=== PATIENT | female | born 1960 | race Caucasian/White ===

== ENCOUNTER 2020-06-07 20:07 | Inpatient (IN) | payer BC, OTHER ==
[~2020-06-07] VITALS: Ht 162.5 cm; Wt 122.7 kg
--- NOTE | 2020-06-07 20:15 | NUR ---
ABG'S COLLECTED BY RT STAFF
--- NOTE | 2020-06-07 20:34 | ED Dyspnea ---
General Stated Complaint: COVID +;SOA Source of Information: Patient, EMS Exam Limitations: No Limitations History of Present Illness Date Seen by Provider: Jun 07, 2020 Time Seen by Provider: 20:10 Initial Comments Patient is a 60-year-old female who presents to the emergency department today with a chief complaint of generalized weakness and shortness of breath. Per report of EMS and the patient she was diagnosed with coronavirus last week on or Thursday. She started having symptoms a week and a half ago on the Thursday. Patient states for the last 3 or 4 days she has been so weak she cannot get out of bed. EMS reports on their arrival her saturations were 60% on room air. The patient is saying that she is too weak to get out of bed. She denies chest pain she denies sore throat. She denies any GI symptoms. She denies abdominal pain. She has been trying to drink at home but she is not been able to eat because she has been too weak. She lives at home with her son. All other review of systems reviewed and negative except as stated. Timing/Duration: 1 Week, Constant, Increasing Severity: Severe Modifying Factors: Improves With Activity Associated Symptoms: Fever, Weakness Allergies and Home Medications Allergies Coded Allergies: No Known Drug Allergies (Unverified , 06/07/20) Patient Home Medication List Home Medication List Reviewed: Yes Review of Systems Review of Systems Constitutional: no symptoms reported EENTM: No nose congestion, No nose pain Respiratory: cough, dyspnea on exertion, short of breath, wheezing Cardiovascular: no symptoms reported Genitourinary: no symptoms reported Musculoskeletal: no symptoms reported Skin: no symptoms reported All Other Systems Reviewed Negative Unless Noted: Yes Physical Exam Vital Signs Vital Signs - First Documented 06/07/20 06/07/20 06/07/20 20:26 20:50 20:52 Temp 38.6 Pulse 99 Resp 43 B/P (MAP) 131/56 (81) Pulse Ox 96 O2 Delivery Vapotherm O2 Flow Rate 6.00 FiO2 90 Capillary Refill : Height, Weight, BMI Height: '" Weight: lbs. oz. kg; BMI Method: General Appearance: Severe Distress HEENT: PERRL/EOMI, Other (Very dry oral mucosa noted) Neck: Full Range of Motion Respiratory: Other (Tachypnea at 40 breaths/min, coarse rhonchi noted in the left upper posterior lung olsen otherwise clear) Cardiovascular: Tachycardia Gastrointestinal: Normal Bowel Sounds, Non Tender Extremity: Normal Inspection, Normal Range of Motion, Non Tender, No Calf Tenderness Neurologic/Psychiatric: Oriented x3, No Motor/Sensory Deficits, Normal Mood/Affect Skin: Normal Color, Warm/Dry Focused Exam Sepsis Stage: Sepsis Possible Source: Pulmonary Lactate Level 06/07/20 20:15: Lactic Acid Level 1.71 Time of Focused Exam: 20:35 Respiratory: Chest Non Tender, Respiratory Distress, Rhonci Cardiovascular: Normal Peripheral Pulses, Tachycardia Capillary Refill: Less Than 3 Seconds Peripheral Pulses: 2+ Radial Pulses (R), 2+ Radial Pulses (L) Skin: warm/dry, pallor Lactic Acid Level Laboratory Tests Test 06/07/20 20:15 Lactic Acid Level 1.71 MMOL/L (0.50-2.00) Progress/Results/Core Measures Results/Orders Lab Results Laboratory Tests Test 06/07/20 20:15 06/07/20 20:25 06/07/20 20:40 Range/Units White Blood Count 10.3 4.3-11.0 10^3/uL Red Blood Count 5.73 H 3.80-5.11 10^6/uL Hemoglobin 15.6 11.5-16.0 g/dL Hematocrit 46 35-52 % Mean Corpuscular Volume 81 80-99 fL Mean Corpuscular Hemoglobin 27 25-34 pg Mean Corpuscular Hemoglobin Concent 34 32-36 g/dL Red Cell Distribution Width 12.7 10.0-14.5 % Platelet Count 387 130-400 10^3/uL Mean Platelet Volume 10.1 9.0-12.2 fL Immature Granulocyte % (Auto) 7 % Neutrophils (%) (Auto) 81 H 42-75 % Lymphocytes (%) (Auto) 8 L 12-44 % Monocytes (%) (Auto) 4 0-12 % Eosinophils (%) (Auto) 0 0-10 % Basophils (%) (Auto) 1 0-10 % Neutrophils # (Auto) 8.3 H 1.8-7.8 10^3/uL Lymphocytes # (Auto) 0.9 L 1.0-4.0 10^3/uL Monocytes # (Auto) 0.4 0.0-1.0 10^3/uL Eosinophils # (Auto) 0.0 0.0-0.3 10^3/uL Basophils # (Auto) 0.1 0.0-0.1 10^3/uL Immature Granulocyte # (Auto) 0.7 H 0.0-0.1 10^3/uL Prothrombin Time 14.8 H 12.2-14.7 SEC INR Comment 1.1 0.8-1.4 Activated Partial Thromboplast Time 26 24-35 SEC D-Dimer 4.25 H 0.00-0.49 UG/ML Sodium Level 131 L 135-145 MMOL/L Potassium Level 3.7 3.6-5.0 MMOL/L Chloride Level 94 L 98-107 MMOL/L Carbon Dioxide Level 21 21-32 MMOL/L Anion Gap 16 H 5-14 MMOL/L Blood Urea Nitrogen 15 7-18 MG/DL Creatinine 0.78 0.60-1.30 MG/DL Estimat Glomerular Filtration Rate > 60 BUN/Creatinine Ratio 19 Glucose Level 123 H 70-105 MG/DL Lactic Acid Level 1.71 0.50-2.00 MMOL/L Calcium Level 9.0 8.5-10.1 MG/DL Corrected Calcium 9.4 8.5-10.1 MG/DL Total Bilirubin 1.2 H 0.1-1.0 MG/DL Aspartate Amino Transf (AST/SGOT) 58 H 5-34 U/L Alanine Aminotransferase (ALT/SGPT) 61 H 0-55 U/L Alkaline Phosphatase 239 H 40-136 U/L C-Reactive Protein High Sensitivity 15.49 H 0.00-0.50 MG/DL Total Protein 7.1 6.4-8.2 GM/DL Albumin 3.5 3.2-4.5 GM/DL Procalcitonin 0.14 H <0.10 NG/ML Urine Color MARIANN H Urine Clarity SL CLOUDY Urine pH 6.0 5-9 Urine Specific Crewe 1.015 L 1.016-1.022 Urine Protein 2+ H NEGATIVE Urine Glucose (UA) NEGATIVE NEGATIVE Urine Ketones 2+ H NEGATIVE Urine Nitrite NEGATIVE NEGATIVE Urine Bilirubin 2+ H NEGATIVE Urine Urobilinogen >=8.0 < = 1.0 MG/DL Urine Leukocyte Esterase NEGATIVE NEGATIVE Urine RBC (Auto) NEGATIVE NEGATIVE Urine RBC 0-2 /HPF Urine WBC 2-5 /HPF Urine Squamous Epithelial Cells 5-10 /HPF Urine Crystals PRESENT H /LPF Urine Amorphous Sediment RARE NADEEN URATES H /LPF Urine Bacteria FEW H /HPF Urine Casts PRESENT /LPF Urine Hyaline Casts 5-10 H /LPF Urine Mucus MODERATE H /LPF Urine Culture Indicated CULTURE PENDING Blood Gas Puncture Site LEFT RADIAL Blood Gas Patient Temperature 38.6 Arterial Blood pH 7.46 H 7.37-7.43 Arterial Blood Partial Pressure CO2 30 L 35-45 MMHG Arterial Blood Partial Pressure O2 98 H 79-93 MMHG Arterial Blood HCO3 20 L 23-27 MMOL/L Arterial Blood Total CO2 21.3 21.0-31.0 MMOL/L Arterial Blood Oxygen Saturation 97 94-100 % Arterial Blood Base Excess -2.5 -2.5-2.5 MMOL/L Yinka Test UNKNOWN Blood Gas Ventilator Setting NO Blood Gas Inspired Oxygen 40 Micro Results Microbiology 06/07/20 Blood Culture - Preliminary, Resulted Probable Coag Negative Staph 06/07/20 Urine Culture - Final, Complete NO GROWTH 06/07/20 Blood Culture - Preliminary, Resulted Probable Coag Negative Staph My Orders Orders - JIMMY BARBER MD Cbc With Automated Diff (06/07/20 20:25) Comprehensive Metabolic Panel (06/07/20 20:25) Blood Culture (06/07/20 20:25) Sputum Culture (06/07/20 20:) Urinalysis (06/07/20:) Urine Culture (06/07/20:) Protime With Inr (06/07/20 20:) Partial Thromboplastin Time (06/07/20 20:25) Chest 1 View, Ap/Pa Only (06/07/20 20:25) Ed Iv/Invasive Line Start (06/07/20 20:25) Ed Iv/Invasive Line Start (06/07/20 20:25) Vital Signs Adult Sepsis Patie Q15M (06/07/20 20:25) O2 (06/07/20 20:25) Remove Rings In Anticipation O (06/07/20 20:) Lactic Acid Analyzer (06/07/20 20:) Hs C Reactive Protein (06/07/20 20:25) Fibrin Degradation Products (06/07/20 20:) Procalcitonin (Pct) (06/07/20 20:25) Catheter(Urinary) Insert & Ass 03,15 (10/22/20 20:26) Acetaminophen Tablet (Tylenol Tablet) (06/07/20 20:45) Ns Iv 1000 Ml (Sodium Chloride 0.9%) (06/07/20 20:44) Arterial Blood Gas (06/07/20 20:45) Ct Angio Chest W (06/07/20 21:17) Dexamethasone Injection (Decadron Inje (06/07/20 22:33) Medications Given in ED Vital Signs/I&O 06/07/20 06/07/20 06/07/20 20:26 20:50 20:52 Temp 38.6 38.6 Pulse 99 Resp 43 B/P (MAP) 131/56 (81) Pulse Ox 96 85 O2 Delivery Vapotherm Nasal Cannula O2 Flow Rate 6.00 FiO2 90 Progress Progress Note : Time: 21:19 Progress Note 60-year-old female presents to the emergency room with a chief complaint of shortness of breath cough and hypoxemia. Evaluation today includes physical exam with chest x-ray and septic work-up. Patient has no significant leukocytosis however she does have a left shift her CRP and D-dimer are well above normal range. Her CRP is 15 D-dimer is 4. Patient's chest x-ray is still pending. Patient will undergo CTA pulmonary to rule out PE concurrent with her coronavirus infection. She has been treated with 2 L of IV normal saline as the patient is significantly dehydrated. She is also been given Tylenol for her temp at 101.6. Patient is on Vapotherm currently. She is maxed at 40. ABG is reassuring. She will be admitted to the ICU for further management and care. 2300 DIscussed with E-ICU Critical Care Note Critical Care Start Time: 20:10 Stop Time: 22:31 Total Time (minutes) 1 hour of critical care time, evaluation and management of patients dehydration and hypoxemia; review and interpretation of labs and chest xray; review of medical records; discussion with hospitalist. Departure Communication (Admissions) Time/Spoke to Admitting Phy: 22:[address] Bowman who accepts patient for admission to the ICU Impression Primary Impression: Pneumonia due to COVID-19 virus Disposition: ADMITTED INPATIENT Condition: Critical Admissions Decision to Admit Reason: Admit from ER (General) Decision to Admit/Date: Jun 07, 2020 Time/Decision to Admit Time: 20:30 JIMMY BARBER MD Jun 07, 2020 20:33
[2020-06-07 20:37] LABS: BASOPHILS # (AUTO) 0.1 10^3/uL (0.0-0.1); BASOPHILS % (AUTO) 1 % (0-10); EOSINOPHILS % (AUTO) 0 % (0-10); HEMATOCRIT 46 % (35-52); HEMOGLOBIN 15.6 g/dL (11.5-16.0); LYMPHOCYTES # (AUTO) 0.9 10^3/uL (1.0-4.0); LYMPHOCYTES % (AUTO) 8 % (12-44); MEAN CORPUSCULAR HEMOGLOBIN 27 pg (25-34); MEAN CORPUSCULAR HGB CONC 34 g/dL (32-36); MEAN CORPUSCULAR VOLUME 81 fL (80-99); MEAN PLATELET VOLUME 10.1 fL (9.0-12.2); MONOCYTES # (AUTO) 0.4 10^3/uL (0.0-1.0); MONOCYTES % (AUTO) 4 % (0-12); NEUTROPHILS # (AUTO) 8.3 10^3/uL (1.8-7.8); NEUTROPHILS % (AUTO) 81 % (42-75); PLATELET COUNT 387 10^3/uL (130-400); WHITE BLOOD COUNT 10.3 10^3/uL (4.3-11.0)
[2020-06-07 20:43] LABS: CLARITY,URINE SL CLOUDY; COLOR,URINE AMBER; GLUCOSE, URINE (UA) NEGATIVE (NEGATIVE); KETONES,URINE 2+ (NEGATIVE); LEUKOCYTE ESTERASE ,URINE NEGATIVE (NEGATIVE); NITRITE,URINE NEGATIVE (NEGATIVE); PROTEIN,URINE 2+ (NEGATIVE)
[2020-06-07] MEDS ORDERED: ACETAMINOPHEN 500 MG TAB (TYLENOL) PO ONE (20:45)
[2020-06-07 20:50] LABS: ALANINE AMINOTRANSFERASE 61 U/L (0-55); ALBUMIN 3.5 GM/DL (3.2-4.5); ALKALINE PHOSPHATASE 239 U/L (40-136); BILIRUBIN,TOTAL 1.2 MG/DL (0.1-1.0); BUN/CREATININE RATIO 19; CARBON DIOXIDE 21 MMOL/L (21-32); CHLORIDE 94 MMOL/L (98-107); CREATININE SERUM 0.78 MG/DL (0.60-1.30); FIBRIN DEGRADATION PRODUCTS 4.25 UG/ML (0.00-0.49); GFR ESTIMATED > 60; GLUCOSE 123 MG/DL (70-105); INR 1.1 (0.8-1.4); POTASSIUM 3.7 MMOL/L (3.6-5.0); PROTHROMBIN TIME PATIENT 14.8 SEC (12.2-14.7); SODIUM 131 MMOL/L (135-145); TOTAL PROTEIN 7.1 GM/DL (6.4-8.2)
[2020-06-07 20:51] LABS: ABG BASE EXCESS -2.5 MMOL/L (-2.5-2.5); ABG OXYGEN SATURATION 97 % (94-100); ABG PCO2 30 MMHG (35-45); ABG PH 7.46 (7.37-7.43); ABG PO2 98 MMHG (79-93); ABG TCO2 21.3 MMOL/L (21.0-31.0)
[2020-06-07] MEDS: NS IV 1000 ML 2,000 ML ONE ×2 (20:51→20:52)
[2020-06-07 20:55] LABS: BACTERIA,URINE FEW /HPF; BILIRUBIN,URINE 2+ (NEGATIVE); RBC,URINE 0-2 /HPF
[2020-06-07 20:56] LABS: AMORPHOUS SEDIMENT,UR RARE AMOR URATES /LPF
[2020-06-07 20:57] LABS: INSPIRED O2 40; PATIENT TEMP 38.6; VENTILATOR NO
--- NOTE | 2020-06-07 22:24 | Diagnostic Imaging Report ---
INDICATION: Pneumonia. EXAMINATION: Portable chest at 9:49 p.m. FINDINGS: There are diffuse groundglass infiltrates in both lungs, slightly more confluent on the right than on the left. There is no effusion. IMPRESSION: Bilateral pulmonary infiltrates. Dictated by: Dictated on workstation # [id number]
[2020-06-07] MEDS ORDERED: NS 100 ML (IVPB) BAG IV ONE (23:30)
[2020-06-07] MEDS ORDERED: IOHEXOL 350 MG/ML 100 ML (OMNIPAQUE 350) VIAL IV ONE (23:30)
[2020-06-07] MEDS ORDERED: CATHETER FLUSH 10 ML SYR IV PRN (23:30)
[2020-06-07] MEDS ORDERED: HOLD METFORMIN - RECEIVED CONTRAST 20 ML VIAL IV SCH (23:30)
[2020-06-07] MEDS: NS IV 1000 ML 1,000 ML IV SCH (23:42)
[2020-06-07 23:56] VITALS: BP 123/58
[2020-06-08] VITALS (27 sets, daily range): BP systolic 99–147; BP diastolic 45–89
[2020-06-08] MEDS ORDERED: RT-ALBUTEROL INHALER HFA (VENTOLIN HFA) 18 GM IH PRN (00:15)
[2020-06-08] MEDS: RT-ALBUTEROL INHALER HFA (VENTOLIN HFA) 18 GM IH SCH ×5 (02:38→19:00)
[2020-06-08 03:21] LABS: ABG BASE EXCESS -2.5 MMOL/L (-2.5-2.5); ABG OXYGEN SATURATION 95 % (94-100); ABG PCO2 36 MMHG (35-45); ABG PH 7.39 (7.37-7.43); ABG PO2 76 MMHG (79-93); ABG TCO2 22.9 MMOL/L (21.0-31.0)
[2020-06-08 03:22] LABS: ALLENS TEST POSITIVE; INSPIRED O2 10l/85% VAPO; PATIENT TEMP 36.2; VENTILATOR NO
[2020-06-08 04:13] LABS: BASOPHILS % (AUTO) 0 % (0-10); EOSINOPHILS % (AUTO) 0 % (0-10); HEMATOCRIT 39 % (35-52); HEMOGLOBIN 13.1 g/dL (11.5-16.0); LYMPHOCYTES # (AUTO) 0.4 10^3/uL (1.0-4.0); LYMPHOCYTES % (AUTO) 6 % (12-44); MEAN CORPUSCULAR HEMOGLOBIN 27 pg (25-34); MEAN CORPUSCULAR HGB CONC 34 g/dL (32-36); MEAN CORPUSCULAR VOLUME 81 fL (80-99); MEAN PLATELET VOLUME 10.2 fL (9.0-12.2); MONOCYTES # (AUTO) 0.2 10^3/uL (0.0-1.0); MONOCYTES % (AUTO) 3 % (0-12); NEUTROPHILS # (AUTO) 5.4 10^3/uL (1.8-7.8); NEUTROPHILS % (AUTO) 84 % (42-75); PLATELET COUNT 244 10^3/uL (130-400); WHITE BLOOD COUNT 6.4 10^3/uL (4.3-11.0)
[2020-06-08 04:25] LABS: CHLORIDE 104 MMOL/L (98-107); POTASSIUM 3.9 MMOL/L (3.6-5.0); SODIUM 135 MMOL/L (135-145)
[2020-06-08 04:26] LABS: CALCIUM 7.8 MG/DL (8.5-10.1)
[2020-06-08 04:27] LABS: GLUCOSE 137 MG/DL (70-105)
[2020-06-08 04:28] LABS: CARBON DIOXIDE 19 MMOL/L (21-32)
[2020-06-08 04:30] LABS: CREATININE SERUM 0.63 MG/DL (0.60-1.30); GFR ESTIMATED > 60; PHOSPHORUS 3.5 MG/DL (2.3-4.7)
[2020-06-08 04:31] LABS: BUN/CREATININE RATIO 22
[2020-06-08 04:33] LABS: MAGNESIUM 2.2 MG/DL (1.6-2.4)
[2020-06-08] MEDS: POTASSIUM CL 10MEQ/50ML IVPB 50 ML IV SCH (04:40)
[2020-06-08] MEDS: MAGNESIUM 1 GM/100 ML IVPB 100 ML IV SCH (04:40)
[2020-06-08] MEDS: KCL 20 MEQ TAB (K-DUR) PO SCH (04:40)
[2020-06-08] MEDS: NS IV 1000 ML 1,000 ML IV SCH ×3 (05:51→18:48)
--- NOTE | 2020-06-08 06:16 | Diagnostic Imaging Report ---
PROCEDURE: CT angiography of the chest with contrast. TECHNIQUE: Multiple contiguous axial images were obtained through the chest after uneventful bolus administration of intravenous contrast. 3D reconstructed CTA MIP acquisitions were also performed. Auto Exposure Controls were utilized during the CT exam to meet ALARA standards for radiation dose reduction. INDICATION: Shortness of breath, cough and congestion. Patient is Covid positive. No prior examinations are available for comparison. FINDINGS: There are diffuse bilateral groundglass infiltrates. There are more consolidated alveolar infiltrates in both lung bases. There is no significant pleural effusion. There is no pneumothorax. Thoracic aorta is normal in caliber and without evidence of dissection. There are coronary artery calcifications. There is hiatal hernia. There is no pathologically enlarged adenopathy in chest. Evaluation for pulmonary embolism is suboptimal due to poor bolus timing. No obvious large central emboli are appreciated. The visualized intra-abdominal structures are unremarkable. There are degenerative changes in the spine. IMPRESSION: Suboptimal opacification of pulmonary arteries for complete exclusion of pulmonary emboli. No definite large central or proximal emboli are appreciated. Extensive bilateral groundglass infiltrates and bibasilar alveolar consolidations compatible with pneumonia. If pattern would be compatible with Covid, recommend clinical correlation. Coronary artery calcification. Dictated by: Dictated on workstation # [id number]
[2020-06-08] MEDS ORDERED: REMDESIVIR INJ 200 MG in NS (IVPB) 210 ML IV ONE (07:45)
--- NOTE | 2020-06-08 07:47 | Pulmonary Consultation ---
History of Present Illness History of Present Illness Date Seen by Provider: Jun 08, 2020 Time Seen by Provider: 07:44 Date of Admission Allergies and Home Medications Allergies Coded Allergies: No Known Drug Allergies (Unverified , 06/07/20) Past Owzczxv-Lffpbh-Ckrlyp Hx Patient Social History Alcohol Use: Denies Use Recreational Drug Use: No Recent Foreign Travel: No Contact w/Someone Who Travel: No Recent Infectious Disease Expo: Yes (COVID POSITIVE) Recent Hopitalizations: No Seasonal Allergies Seasonal Allergies: No Past Medical History Surgeries: No Respiratory: No Cardiac: No Neurological: No 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 oz. kg; 30.00 BMI Method: Exam Exam Vital Signs Date Time Temp Pulse Resp B/P (MAP) Pulse Ox O2 Delivery O2 Flow Rate FiO2 06/08/20 06:57 93 Vapotherm 40.00 85 06/08/20 06:00 64 16 124/78 (93) 93 Vapotherm 40.00 85.00 06/08/20 05:00 75 38 120/85 (97) 96 Vapotherm 40.00 85.00 06/08/20 04:00 67 24 128/64 (85) 93 Vapotherm 40.00 85.00 06/08/20 04:00 36.2 06/08/20 03:00 68 32 115/64 (81) 93 Vapotherm 40.00 85.00 06/08/20 02:36 94 Vapotherm 40.00 85 06/08/20 02:00 72 28 123/66 (85) 94 Vapotherm 40.00 85.00 06/08/20 01:30 71 36 107/59 (75) 94 Vapotherm 40.00 85.00 06/08/20 01:00 72 35 106/67 (80) 91 Vapotherm 40.00 85.00 06/08/20 00:50 92 Vapotherm 40.00 85 06/08/20 00:45 72 33 110/56 (74) 91 Vapotherm 40.00 85.00 06/08/20 00:30 71 26 118/57 (77) 91 Vapotherm 40.00 85.00 06/08/20 00:15 76 29 125/71 (89) 95 Vapotherm 40.00 85.00 06/08/20 00:04 38.6 99 93 85 06/08/20 00:00 80 06/07/20 23:56 36.2 79 30 123/58 (79) 92 Vapotherm 40.00 85.00 06/07/20 23:44 93 Vapotherm 40.00 85 06/07/20 23:25 37.4 82 36 102/74 91 OxyMask 15.00 06/07/20 20:52 38.6 99 43 131/56 (81) 85 Nasal Cannula 6.00 06/07/20 20:50 38.6 06/07/20 20:26 96 Vapotherm 90 I & O 06/08/20 07:00 Intake Total 2000 ml Output Total 550 ml Balance 1450 ml Height & Weight Height: '" Weight: lbs. oz. kg; 30.00 BMI Method: General Appearance: Severe Distress HEENT: PERRL/EOMI, Other (Very dry oral mucosa noted) Neck: Full Range of Motion Respiratory: Chest Non Tender, Respiratory Distress, Rhonci Cardiovascular: Normal Peripheral Pulses, Tachycardia Capillary Refill: Less Than 3 Seconds Peripheral Pulses: 2+ Radial Pulses (R), 2+ Radial Pulses (L) Extremity: Normal Inspection, Normal Range of Motion, Non Tender, No Calf Tenderness Neurologic/Psychiatric: Oriented x3, No Motor/Sensory Deficits, Normal Mood/Affect Skin: Normal Color, Warm/Dry Results Lab Laboratory Tests 06/07/20 20:15 06/08/20 03:38 Assessment/Plan Assessment/Plan COVID 19- PNA -Start Remdesivir 06/08 -Monitor LFTs with daily CMPs -CVP -Currently requiring Vapotherm at 85% -Continue Decadron 6mg IV -Start theraputic dose lovenox secondary to elevated DDImer -CTA of chest - nondiagnostic for PE secondary to poor timing -Check PCT, and BNP Elevated LFTs with elevated Bili -Check Abd US HOWARD YOU DO Jun 08, 2020 07:47
[2020-06-08] MEDS ORDERED: PANTOPRAZOLE 40 MG (PROTONIX) VIAL ONE (08:04)
[2020-06-08] MEDS ORDERED: ENOXAPARIN 100 MG/1 ML (LOVENOX) SYR ONE (08:04)
[2020-06-08] MEDS: ENOXAPARIN 100 MG/1 ML (LOVENOX) SYR SC SCH ×2 (08:09→20:16)
[2020-06-08] MEDS: PANTOPRAZOLE 40 MG (PROTONIX) VIAL IV SCH (08:09)
--- NOTE | 2020-06-08 08:48 | Diagnostic Imaging Report ---
PROCEDURE: US Abdomen, limited. TECHNIQUE: Multiple realtime grayscale images were obtained over the abdomen in various projections. INDICATION: Elevated liver function tests and bilirubin levels. COMPARISON: CT chest from prior day FINDINGS: The liver is normal in size measuring 18 cm in craniocaudal dimension and has normal echogenicity. There is no focal hepatic mass. The main portal vein is patent with antegrade flow. Gallbladder is contracted without gallstones present. The common bile duct is obscured by bowel gas and cannot be evaluated. The majority of the pancreas is obscured by overlying bowel gas, and therefore cannot be evaluated. The right kidney is normal in size. No hydronephrosis, shadowing calculi, or suspicious mass lesion. IMPRESSION: 1. Partially contracted gallbladder could be due to nonfasting. No cholelithiasis. 2. Normal sonographic appearance of the liver. Dictated by: Dictated on workstation # [id number]
[2020-06-08] MEDS ORDERED: REMDESIVIR INJ 200 MG in NS (IVPB) 210 ML IV NR (12:15)
--- NOTE | 2020-06-08 14:30 | NUR ---
REPORT GIVEN TO DEVEN WHITE, DUE TO STAFFING.
--- NOTE | 2020-06-08 14:32 | NUR ---
RECEIVED REPORT FROM CINDY ROE. THIS RN TO ASSUME CARE OF PT AT THIS TIME.
[2020-06-09] VITALS (27 sets, daily range): BP systolic 94–167; BP diastolic 57–106
[2020-06-09] MEDS: RT-ALBUTEROL INHALER HFA (VENTOLIN HFA) 18 GM IH SCH ×5 (02:31→18:27)
[2020-06-09] MEDS: NS IV 1000 ML 1,000 ML IV SCH ×2 (02:33→17:32)
[2020-06-09 03:09] LABS: BASOPHILS % (AUTO) 0 % (0-10); EOSINOPHILS % (AUTO) 1 % (0-10); HEMATOCRIT 37 % (35-52); HEMOGLOBIN 12.1 g/dL (11.5-16.0); LYMPHOCYTES # (AUTO) 0.6 10^3/uL (1.0-4.0); LYMPHOCYTES % (AUTO) 9 % (12-44); MEAN CORPUSCULAR HEMOGLOBIN 27 pg (25-34); MEAN CORPUSCULAR HGB CONC 33 g/dL (32-36); MEAN CORPUSCULAR VOLUME 82 fL (80-99); MEAN PLATELET VOLUME 10.1 fL (9.0-12.2); MONOCYTES # (AUTO) 0.3 10^3/uL (0.0-1.0); MONOCYTES % (AUTO) 4 % (0-12); NEUTROPHILS # (AUTO) 5.5 10^3/uL (1.8-7.8); NEUTROPHILS % (AUTO) 79 % (42-75); PLATELET COUNT 267 10^3/uL (130-400); WHITE BLOOD COUNT 6.9 10^3/uL (4.3-11.0)
[2020-06-09 03:28] LABS: CHLORIDE 112 MMOL/L (98-107); POTASSIUM 3.4 MMOL/L (3.6-5.0); SODIUM 140 MMOL/L (135-145)
[2020-06-09 03:29] LABS: CALCIUM 7.9 MG/DL (8.5-10.1)
[2020-06-09 03:30] LABS: GLUCOSE 101 MG/DL (70-105)
[2020-06-09 03:31] LABS: CARBON DIOXIDE 18 MMOL/L (21-32)
[2020-06-09 03:33] LABS: CREATININE SERUM 0.62 MG/DL (0.60-1.30); PHOSPHORUS 2.1 MG/DL (2.3-4.7)
[2020-06-09 03:34] LABS: BUN/CREATININE RATIO 23; GFR ESTIMATED > 60
[2020-06-09 03:36] LABS: MAGNESIUM 2.2 MG/DL (1.6-2.4)
[2020-06-09] MEDS: POTASSIUM CL 10MEQ/50ML IVPB 50 ML IV SCH ×3 (04:12→05:41)
[2020-06-09] MEDS: MAGNESIUM 1 GM/100 ML IVPB 100 ML IV SCH (04:12)
[2020-06-09] MEDS: KCL 20 MEQ TAB (K-DUR) PO SCH (04:12)
--- NOTE | 2020-06-09 06:32 | Progress Note - Hospitalist ---
Subjective HPI/CC On Admission Date Seen by Provider: Jun 09, 2020 Time Seen by Provider: 10:30 Subjective/Events-last exam Patient stable but appears to be on edge of needing biPAP Patient drinking a lot of ice water Adding liver enzymes to am labs Patient appears to be frightened Review of Systems General: Fatigue Pulmonary: Dyspnea, Cough Focused Exam Lactate Level 06/07/20 20:15: Lactic Acid Level 1.71 Time of Focused Exam: 20:35 Objective Exam Vital Signs Vital Signs Date Time Temp Pulse Resp B/P (MAP) Pulse Ox O2 Delivery O2 Flow Rate FiO2 06/09/20 17:00 78 29 149/65 (93) 93 Vapotherm 40.00 85.00 06/09/20 16:56 37.1 06/09/20 12:40 90 Capillary Refill : Less Than 3 Seconds General Appearance: Anxious, Chronically ill, Mild Distress Respiratory: Lungs Clear, Accessory Muscle Use, Decreased Breath Sounds Cardiovascular: Regular Rate, Rhythm Neurologic/Psychiatric: Alert, Oriented x3, Disoriented Results/Procedures Lab Laboratory Tests 06/09/20 02:55 Patient resulted labs reviewed. Assessment/Plan Assessment and Plan Assess & Plan/Chief Complaint Note from Dr Hale: COVID 19- PNA -Start Remdesivir 06/08 -Monitor LFTs with daily CMPs -CVP -Currently requiring Vapotherm at 85% -Continue Decadron 6mg IV -Start theraputic dose lovenox secondary to elevated DDImer -CTA of chest - nondiagnostic for PE secondary to poor timing -Check PCT, and BNP Elevated LFTs with elevated Bili -Check Abd US My notes: Patient currently on Vapotherm but may need biPAP Patient drinking a lot of water Patient alert but appears to be mildly confused Monitor O2 closely Evaluate hepatic panel since added to am labs Diagnosis/Problems Diagnosis/Problems (1) Pneumonia due to COVID-19 virus Status: Acute Clinical Quality Measures DVT/VTE Risk/Contraindication: Risk Factor Score Per Nursin RFS Level Per Nursing on Admit: 4+=Very High SHAYY KNIGHT DO Jun 09, 2020 06:32
[2020-06-09] MEDS: REMDESIVIR INJ 100 MG in NS (IVPB) 230 ML IV SCH (08:10)
[2020-06-09] MEDS: PANTOPRAZOLE 40 MG (PROTONIX) VIAL IV SCH (08:11)
[2020-06-09] MEDS: ENOXAPARIN 100 MG/1 ML (LOVENOX) SYR SC SCH ×2 (08:11→19:31)
[2020-06-09] MEDS ORDERED: guaiFENesin/DM (ROBITUSSIN DM) 10 ML UDC ONE (11:01)
[2020-06-09] MEDS: guaiFENesin/DM (ROBITUSSIN DM) 10 ML UDC PO PRN ×2 (11:03→16:20)
[2020-06-09] MEDS ORDERED: NS (IVPB) 250 ML ONE (12:16)
[2020-06-09 17:43] LABS: ALBUMIN 2.7 GM/DL (3.2-4.5); BILIRUBIN,DIRECT 0.3 MG/DL (0.0-0.3); BILIRUBIN,INDIRECT 0.1 MG/DL; BILIRUBIN,TOTAL 0.4 MG/DL (0.1-1.0); TOTAL PROTEIN 5.2 GM/DL (6.4-8.2)
[2020-06-09] MEDS: morphine INJ 10 MG/ML 1ML (SYR OR VIAL) IVP PRN (18:30)
[2020-06-09] MEDS ORDERED: DexMEDEtomidine PRE MIX 100 ML IV ONE (18:35)
[2020-06-09] MEDS ORDERED: DexMEDEtomidine PRE MIX 100 ML IV PRN (18:45)
[2020-06-09] MEDS: DexMEDEtomidine PRE MIX 100 ML IV SCH ×2 (18:49→22:10)
[2020-06-09] MEDS ORDERED: PROPOFOL DRIP (ICU) 100 ML IV ONE (22:54)
[2020-06-09] MEDS: PROPOFOL DRIP (ICU) 100 ML IV SCH (23:06)
[2020-06-09 23:54] LABS: ABG BASE EXCESS -7.2 MMOL/L (-2.5-2.5); ABG OXYGEN SATURATION 97 % (94-100); ABG PCO2 53 MMHG (35-45); ABG PO2 112 MMHG (79-93); ABG TCO2 21.3 MMOL/L (21.0-31.0)
[2020-06-09 23:59] LABS: ALLENS TEST POSITIVE; INSPIRED O2 100; PATIENT TEMP 36.7; VENTILATOR YES
[2020-06-10] VITALS (28 sets, daily range): BP systolic 73–137; BP diastolic 50–93
[2020-06-10] MEDS ORDERED: NS IV 1000 ML 1,000 ML IV SCH
[2020-06-10 00:01] LABS: ABG PH 7.19 (7.37-7.43)
[2020-06-10] MEDS ORDERED: NOREPINEPHRINE 4 MG/250 ML 250 ML IV ONE (00:02)
[2020-06-10] MEDS: NOREPINEPHRINE 4 MG/250 ML 250 ML IV SCH ×5 (00:05→23:16)
[2020-06-10] MEDS ORDERED: fentaNYL (OMNICELL DRIP KIT ONLY) 250 MCG/5 ML AMP ONE (00:34)
[2020-06-10] MEDS ORDERED: NS (IVPB) 100 ML ONE (00:35)
[2020-06-10] MEDS: fentaNYL INJECTION 1,250 MCG in NS (IVPB) 250 ML IV SCH ×4 (00:43→23:26)
[2020-06-10] MEDS: RT-ALBUTEROL INHALER HFA (VENTOLIN HFA) 18 GM IH SCH ×6 (01:10→22:47)
[2020-06-10] MEDS: NS IV 1000 ML 1,000 ML IV SCH ×5 (01:15→23:20)
--- NOTE | 2020-06-10 01:25 | Procedure/Intervention Note ---
Procedure Note Vital Signs Vital Signs Date Time Temp Pulse Resp B/P (MAP) Pulse Ox O2 Delivery O2 Flow Rate FiO2 06/09/20 23:20 100 06/09/20 23:00 89 40 119/88 (98) 60 NIV Bilevel 90.00 06/09/20 22:10 37.1 Procedure Note 06/09/20, 2330 hrs: Called emergently to ICU room 10 due to patient is in ext remis. Patient is COVID positive with significant bilateral pneumonia and O2 saturations in the 50s despite high flow oxygen. Patient is combative and not tolerating high flow oxygen or BiPAP. Discussed with eICU team and they are requesting intubation for which I agree. O2 saturations in the 50s and 60s. Patient bagged with high flow O2 as well as Vapotherm to try to improve oxygen saturations without success. Ultimately elected to intubate. Patient given Versed 2 mg IV prior to procedure due to agitation. Patient was given etomidate 20 mg IV followed by succinylcholine 100 mg IV. Intubated with 7.5 ET tube to 22 cm at the gumline times one attempt using video scope. Bilateral breath sounds noted after intubation as well as fog in tube and end-tidal CO2 color change. Patient's O2 sats improved slightly to the 60s with bagging. Postintubation sedation with Versed 3 mg IV and fentanyl 75 g IV. Rocuronium 50 mg IV given as patient was quickly bucking the tube. We did initiate propofol and that was started at 20 and quickly increased to 40 micrograms per kilogram per minute. This did improve sedation. Postintubation chest x-ray shows tube in good position. OG tube also placed and is in good position. Chest x-ray does note markedly increasing infiltrates bilaterally with right greater than left over 2 days ago. Findings discussed with the ICU team. Patient did have improvement of O2 saturations when she was sat up for the chest x-ray. Vent management per eICU team and was at rate of 24, tidal volume 450, O2 at 100% and PEEP of 18 at time of departure from ICU. MAGNUS BERGERON MD Jun 10, 2020 01:25
--- NOTE | 2020-06-10 01:39 | Procedure/Intervention Note ---
Procedure Note Vital Signs Vital Signs Date Time Temp Pulse Resp B/P (MAP) Pulse Ox O2 Delivery O2 Flow Rate FiO2 06/09/20 23:20 100 06/09/20 23:00 89 40 119/88 (98) 60 NIV Bilevel 90.00 06/09/20 22:10 37.1 Procedure Note 0100: Called to ICU for request for central line placement. Patient is COVID-19 positive and on vent after intubation earlier. She is on sedation and currently on Levophed for hypotension. Currently has rather significant lung disease and is doing better on vent but is requiring Levophed that is running through peripheral IV. Central line access required for medications as well as frequent blood draws and placed under emergent consent. Patient was prepped with ChloraPrep and draped in sterile fashion. Site identified via ultrasound guidance and lidocaine 5 mL instilled for local anesthesia. Placed using Seldinger technique via ultrasound guidance times one stick with no complications. Good flash and flush. Sutured in place and covered with sterile dressing. Tolerated procedure well with no complications. Post procedure x-ray shows central line in good position without pneumothorax. Okay to use central line. Nursing notified at 0130. MAGNUS BERGERON MD Jun 10, 2020 01:39
[2020-06-10] MEDS: PROPOFOL DRIP (ICU) 100 ML IV SCH ×11 (01:40→23:17)
[2020-06-10] MEDS ORDERED: ROCURONIUM 10 MG/ML 5 ML SYRINGE IV ONE (02:00)
[2020-06-10] MEDS: ROCURONIUM 10 MG/ML 5 ML SYRINGE IV PRN ×4 (02:23→13:54)
--- NOTE | 2020-06-10 02:29 | NUR ---
TIME LINE NOTE 2245-THIS RN TO ROOM TO ASSESS PT-PT ON BIPAP, RR-IN 50'S, 02 SATS 90'S, PT TAKES BIPAP OFF, REFUSES TO PUT BACK ON. THIS RN ATTEMPTS TO PUT VAPOTHERM ON 40L AND 100%. PT O2 SATS DECREASE TO 70'S-THIS RN ATTEMPTS TO PUT PT BACK ON BIPAP-PT SCREAMING AT THIS RN AND ATTEMPTING TO HIT THIS RN AND CLIMB OUT OF BED. PT SCREAMING "DON'T PUT THAT MASK BACK ON ME!! DON'T PUT THAT MASK BACK ON ME." O2 SATS CONTINUE TO DECREASE, THERAPEUTIC COMMUNICATION ATTEMPTED-PT EXTREMELY HYSTERICALLY, UNABLE TO LEAVE BEDSIDE D/T PT CONDITION, NOTIFIED E-ICU - AND PUSHED CODE BLUE BUTTON FOR ASSISTANCE-PT LIPS AND EARS CYANOTIC AND CONTINUING TO THRASH AROUND IN BED SCREAMING "DON'T PUT THAT MASK ON ME." CODE TEAM RESPONDS, DR BERGERON IN ROOM AT THIS TIME. ORDERS TO INTUBATE 2302-2MG VERSED 2304-20MG ETOMIDATE 2305-100 SUCCS 2306-PT INTUBATED-22 AT THE LIP- COLOR CHANGE NOTED-BILAT BREATH SOUNDS 2308-3MG VERSED AND 75 FENTANYL 2311-OG PLACED 2315-50MG ROCC 2320-VENT SETTINGS PEEP 20 E-ICU WALKER'D IN ORDERS FOR VENT TV 450, RATE 24, PEEP10, 100% FIO2, PT CONTINUES TO SAT IN 60'S 2345-PT BP 50S/30'S-EICU NOTIFIED-ORDERS FOR FLUID BOLUS, STAT CENTRAL LINE PLACEMENT AND LEVO STARTED IN PERIPHERAL-DR QUEZADA NOTIFIED OF CENTRAL LINE PLACEMENT, ORDERS TO RUN THROUGH PERIPHERAL FOR NOW AND CONTINUE FLUID BOLUS-EICU NOTIFIED-PER E-ICU TO NOTIFY ER PHYSICIAN 0109-CENTRAL LINE PLACED BY DR BERGERON 0130-CHEST XRAY-OKAY TO USE CENTRAL LINE PER DR BERGERON 0145-ATTEMPTED TO UPDATE PT SON WITH PHONE NUMBER IN CHART-NO ANSWER-WILL ATTEMPT LATER 0150-NOTIFIED EICU OF PT STATUS-RR 30'S, BELLY BREATHING, PEAK PRESSURES 40'S -50'S- SEE ORDER HX
[2020-06-10 03:28] LABS: ABG BASE EXCESS -6.2 MMOL/L (-2.5-2.5); ABG OXYGEN SATURATION 76 % (94-100); ABG PCO2 54 MMHG (35-45); ABG PO2 56 MMHG (79-93); ABG TCO2 21.9 MMOL/L (21.0-31.0)
[2020-06-10 03:29] LABS: ALLENS TEST POSITIVE; INSPIRED O2 100%; VENTILATOR YES
[2020-06-10 03:30] LABS: ABG PH 7.21 (7.37-7.43); PATIENT TEMP 37.6
[2020-06-10 03:31] LABS: BASOPHILS % (AUTO) 0 % (0-10); EOSINOPHILS # (AUTO) 0.1 10^3/uL (0.0-0.3); EOSINOPHILS % (AUTO) 1 % (0-10); HEMATOCRIT 37 % (35-52); HEMOGLOBIN 12.3 g/dL (11.5-16.0); LYMPHOCYTES # (AUTO) 0.7 10^3/uL (1.0-4.0); LYMPHOCYTES % (AUTO) 3 % (12-44); MEAN CORPUSCULAR HEMOGLOBIN 28 pg (25-34); MEAN CORPUSCULAR HGB CONC 33 g/dL (32-36); MEAN CORPUSCULAR VOLUME 84 fL (80-99); MONOCYTES # (AUTO) 0.6 10^3/uL (0.0-1.0); MONOCYTES % (AUTO) 3 % (0-12); NEUTROPHILS # (AUTO) 17.6 10^3/uL (1.8-7.8); NEUTROPHILS % (AUTO) 88 % (42-75); PLATELET COUNT 413 10^3/uL (130-400)
[2020-06-10 03:47] LABS: ALANINE AMINOTRANSFERASE 35 U/L (0-55); ALBUMIN 2.8 GM/DL (3.2-4.5); ALKALINE PHOSPHATASE 146 U/L (40-136); BILIRUBIN,TOTAL 1.3 MG/DL (0.1-1.0); BUN/CREATININE RATIO 17; CALCIUM 7.6 MG/DL (8.5-10.1); CARBON DIOXIDE 16 MMOL/L (21-32); CHLORIDE 109 MMOL/L (98-107); CREATININE SERUM 0.64 MG/DL (0.60-1.30); GFR ESTIMATED > 60; GLUCOSE 143 MG/DL (70-105); MAGNESIUM 1.6 MG/DL (1.6-2.4); PHOSPHORUS 3.3 MG/DL (2.3-4.7); POTASSIUM 4.2 MMOL/L (3.6-5.0); SODIUM 138 MMOL/L (135-145); TOTAL PROTEIN 5.5 GM/DL (6.4-8.2)
[2020-06-10] MEDS: morphine INJ 10 MG/ML 1ML (SYR OR VIAL) IVP PRN (04:19)
[2020-06-10] MEDS: POTASSIUM CL 10MEQ/50ML IVPB 50 ML IV SCH (04:24)
[2020-06-10] MEDS: MAGNESIUM 1 GM/100 ML IVPB 100 ML IV SCH (04:24)
[2020-06-10] MEDS: KCL 20 MEQ TAB (K-DUR) PO SCH (04:25)
[2020-06-10 04:52] LABS: ANISOCYTOSIS SLIGHT; ATYPICAL LYMPHOCYTES 2 %; BAND NEUTROPHILS 9 %; HYPOCHROMASIA SLIGHT; LYMPHOCYTES % (MANUAL) 3 %; METAMYELOCYTES % 1 %; MICROCYTOSIS MODERATE; MONOCYTES % (MANUAL) 5 %; NEUTROPHILS % (MANUAL) 80 %; POIKILOCYTOSIS SLIGHT
[2020-06-10] MEDS: DexMEDEtomidine PRE MIX 100 ML IV SCH ×6 (05:12→23:17)
--- NOTE | 2020-06-10 07:02 | Diagnostic Imaging Report ---
EXAMINATION: Portable chest INDICATION: Central line placement. COVID positive. Comparison made the a prior study from June 09, 2020. FINDINGS: There is a new right internal jugular central venous line. There are no findings of pneumothorax. Positioning of the endotracheal tube and enteric tube appear unchanged. Extensive pulmonary consolidation within the lungs slightly improved within the upper aspect of the lungs compared to the previous exam. Heart size appears stable. IMPRESSION: 1. New right internal jugular central venous line without pneumothorax. The line terminates within the SVC 2. Slight interval improvement in extensive pulmonary consolidation compatible with multilobar pneumonia. Dictated by: Dictated on workstation # [id number]
--- NOTE | 2020-06-10 08:29 | Diagnostic Imaging Report ---
EXAMINATION: Chest radiograph, portable AP view. DATE: 06/09/2020 11:37 PM hours. INDICATION: 60-year-old female, intubation. CODE BLUE. The patient is COVID positive. COMPARISON: June 07, 2020. FINDINGS: The endotracheal tube is approximately 4 cm above the mark. The nasogastric tube is at the level of the stomach. There is multifocal bilateral lung consolidation which is similar to the comparison exam. There is no identified pneumothorax. There is no definite large pleural effusion. IMPRESSION: 1. Multifocal bilateral lung consolidation. 2. Interval placement of support lines and tubes as above. Dictated by: Dictated on workstation # [id number]
[2020-06-10] MEDS: ENOXAPARIN 100 MG/1 ML (LOVENOX) SYR SC SCH ×2 (09:40→19:35)
[2020-06-10] MEDS: REMDESIVIR INJ 100 MG in NS (IVPB) 230 ML IV SCH (09:40)
[2020-06-10] MEDS: PANTOPRAZOLE 40 MG (PROTONIX) VIAL IV SCH (09:41)
--- NOTE | 2020-06-10 11:40 | Progress Note - Hospitalist ---
Subjective HPI/CC On Admission Date Seen by Provider: Jun 10, 2020 Time Seen by Provider: 11:30 Subjective/Events-last exam Patient was intubated last night Patient appears to be stable Blood pressure good and ventilator settings show PEEP of 20 Check meds and labs and imaging Conferred with RN Patient sedated Focused Exam Lactate Level 06/07/20 20:15: Lactic Acid Level 1.71 Time of Focused Exam: 20:35 Objective Exam Vital Signs Vital Signs Date Time Temp Pulse Resp B/P (MAP) Pulse Ox O2 Delivery O2 Flow Rate FiO2 06/10/20 15:00 91 23 127/76 (93) 98 Mechanical Ventilator 100.00 06/10/20 11:34 38.6 06/10/20 09:29 100 Capillary Refill : Less Than 3 Seconds General Appearance: No Apparent Distress, WD/WN, Chronically ill, Other (intubated) Respiratory: Lungs Clear, Decreased Breath Sounds Cardiovascular: Regular Rate, Rhythm Results/Procedures Lab Laboratory Tests 06/10/20 03:07 Patient resulted labs reviewed. Assessment/Plan Assessment and Plan Assess & Plan/Chief Complaint Note from Dr Hale: COVID 19- PNA -Start Remdesivir 06/08 -Monitor LFTs with daily CMPs -CVP -Currently requiring Vapotherm at 85% -Continue Decadron 6mg IV -Start theraputic dose lovenox secondary to elevated DDImer -CTA of chest - nondiagnostic for PE secondary to poor timing -Check PCT, and BNP Elevated LFTs with elevated Bili -Check Abd US My notes: Patient currently on Vapotherm but may need biPAP Patient drinking a lot of water Patient alert but appears to be mildly confused Monitor O2 closely Evaluate hepatic panel since added to am labs 06/10/20: Failed Vapotherm and bipap now intubated as of 2199 last night Aggressive care to continue Stable now PEEP 20 Diagnosis/Problems Diagnosis/Problems (1) Pneumonia due to COVID-19 virus Status: Acute Clinical Quality Measures DVT/VTE Risk/Contraindication: Risk Factor Score Per Nursin RFS Level Per Nursing on Admit: 4+=Very High SHAYY KNIGHT DO Jun 10, 2020 11:40
[2020-06-10] MEDS ORDERED: ACETAMINOPHEN 325 MG TABLET ONE (11:47)
[2020-06-10] MEDS: ACETAMINOPHEN 325 MG TABLET PO PRN ×3 (11:58→19:51)
[2020-06-10] MEDS ORDERED: ADENOSINE 6 MG/2 ML (ADENOCARD) VIAL IV ONE (20:30)
--- NOTE | 2020-06-10 20:30 | NUR ---
TIMELINE NOTE 2000-PT BLOOD PRESSURE WNL. NOREPINEPHRINE HELD AT THIS TIME 2029- PT NOTED TO BE IN SVT WITH RATE OF 170S AT THIS TIME. E-ICU NOTIFIED. E-ICU GAVE ORDERS TO USE PHENYLEPHRINE RATHER THAN NOREPINEPHRINE IF PT HAS DECREASED BLOOD PRESSURE. 2032- PT CONVERTED TO NORMAL SINUS RHYTHM. 2044- PT BACK IN SVT AT THIS TIME WITH RATE OF 160. E-ICU NOTIFIED. NO NEW ORDERS RECEIVED AT THIS TIME. 2046- PT CONVERTED BACK TO NORMAL SINUS RHYTHM WITH A RATE OF 90 AT THIS TIME. VITAL SIGNS STABLE AT THIS TIME. WILL CONTINUE TO MONITOR.
[2020-06-10] MEDS ORDERED: NS (IVPB) 250 ML ONE (20:32)
[2020-06-10] MEDS ORDERED: PHENYLEPHRINE INJ 10 MG/ML (FOR DRIP KITS ONLY) ONE (20:32)
[2020-06-11] VITALS (29 sets, daily range): BP systolic 91–136; BP diastolic 56–79
[2020-06-11] MEDS: RT-ALBUTEROL INHALER HFA (VENTOLIN HFA) 18 GM IH SCH ×6 (01:38→22:04)
[2020-06-11] MEDS: DexMEDEtomidine PRE MIX 100 ML IV SCH (02:13)
[2020-06-11 02:42] LABS: ABG BASE EXCESS -7.3 MMOL/L (-2.5-2.5); ABG OXYGEN SATURATION 97 % (94-100); ABG PCO2 37 MMHG (35-45); ABG PO2 80 MMHG (79-93)
[2020-06-11 02:44] LABS: ALLENS TEST POSITIVE; INSPIRED O2 70; PATIENT TEMP 37; VENTILATOR YES
[2020-06-11 02:45] LABS: BASOPHILS % (AUTO) 0 % (0-10); EOSINOPHILS % (AUTO) 0 % (0-10); HEMATOCRIT 35 % (35-52); HEMOGLOBIN 11.1 g/dL (11.5-16.0); LYMPHOCYTES # (AUTO) 0.4 10^3/uL (1.0-4.0); LYMPHOCYTES % (AUTO) 6 % (12-44); MEAN CORPUSCULAR HEMOGLOBIN 27 pg (25-34); MEAN CORPUSCULAR HGB CONC 32 g/dL (32-36); MEAN CORPUSCULAR VOLUME 85 fL (80-99); MONOCYTES # (AUTO) 0.2 10^3/uL (0.0-1.0); MONOCYTES % (AUTO) 3 % (0-12); NEUTROPHILS # (AUTO) 5.4 10^3/uL (1.8-7.8); NEUTROPHILS % (AUTO) 89 % (42-75); PLATELET COUNT 262 10^3/uL (130-400)
[2020-06-11 02:45] LABS: ABG PH 7.31 (7.37-7.43)
[2020-06-11 02:52] LABS: CHLORIDE 114 MMOL/L (98-107); POTASSIUM 4.6 MMOL/L (3.6-5.0); SODIUM 140 MMOL/L (135-145)
[2020-06-11 02:53] LABS: CALCIUM 7.7 MG/DL (8.5-10.1)
[2020-06-11 02:54] LABS: GLUCOSE 150 MG/DL (70-105); TRIGLYCERIDES 174 MG/DL (<150)
[2020-06-11 02:56] LABS: CARBON DIOXIDE 17 MMOL/L (21-32)
[2020-06-11] MEDS: POTASSIUM CL 10MEQ/50ML IVPB 50 ML IV SCH (02:56)
[2020-06-11] MEDS: KCL 20 MEQ TAB (K-DUR) PO SCH (02:56)
[2020-06-11 02:58] LABS: CREATININE SERUM 0.72 MG/DL (0.60-1.30); GFR ESTIMATED > 60; PHOSPHORUS 3.3 MG/DL (2.3-4.7)
[2020-06-11 02:59] LABS: BUN/CREATININE RATIO 15
[2020-06-11 03:00] LABS: MAGNESIUM 1.9 MG/DL (1.6-2.4)
[2020-06-11] MEDS: MAGNESIUM 1 GM/100 ML IVPB 100 ML IV SCH (03:02)
[2020-06-11] MEDS: PROPOFOL DRIP (ICU) 100 ML IV SCH ×8 (04:22→21:41)
--- NOTE | 2020-06-11 05:03 | Pulmonary Progress Note ---
Subjective Time Seen by a Provider: 04:58 Subjective/Events-last exam Pt is sedated on vent. Sepsis Event Evaluation Height, Weight, BMI Height: '" Weight: lbs. oz. kg; 30.00 BMI Method: Focused Exam Time of Focused Exam: 20:35 Exam Exam Vital Signs Date Time Temp Pulse Resp B/P (MAP) Pulse Ox O2 Delivery O2 Flow Rate FiO2 06/11/20 04:22 101/64 06/11/20 04:22 101/64 06/11/20 04:00 76 23 100/62 (75) 94 Mechanical Ventilator 70.00 06/11/20 03:00 77 24 99/62 (74) 95 Mechanical Ventilator 70.00 06/11/20 02:47 37.0 06/11/20 02:13 78 06/11/20 02:00 79 23 106/66 (79) 96 Mechanical Ventilator 70.00 06/11/20 01:38 77 24 96 70 06/11/20 01:00 78 23 104/66 (79) 95 Mechanical Ventilator 70.00 06/11/20 01:00 78 06/11/20 00:00 80 24 109/65 (80) 93 Mechanical Ventilator 70.00 06/10/20 23:23 37.4 Mechanical Ventilator 70.00 06/10/20 23:17 109/66 06/10/20 23:17 109/66 06/10/20 23:17 84 06/10/20 23:00 86 23 111/69 (83) 96 Mechanical Ventilator 80.00 06/10/20 22:47 86 24 96 80 06/10/20 22:00 89 24 116/69 (85) 97 Mechanical Ventilator 80.00 06/10/20 21:00 92 24 116/69 (85) 96 Mechanical Ventilator 80.00 06/10/20 20:26 Mechanical Ventilator 80.00 96 06/10/20 20:22 87 06/10/20 20:08 38.2 06/10/20 20:08 123/69 06/10/20 20:00 82 24 123/69 (87) 98 Mechanical Ventilator 80.00 06/10/20 19:51 38.1 06/10/20 19:41 133/76 06/10/20 19:40 38.1 Mechanical Ventilator 80.00 06/10/20 19:37 133/76 06/10/20 19:36 133/76 10/25/20 19:00 83 25 127/73 (91) 97 Mechanical Ventilator 90.00 06/10/20 19:00 83 06/10/20 18:50 82 24 98 90 06/10/20 17:22 96 135/81 06/10/20 17:22 38.2 96 24 135/81 98 Mechanical Ventilator 40.00 06/10/20 17:20 38.2 96 24 135/81 (99) 98 Mechanical Ventilator 90.00 06/10/20 16:49 94 24 98 90 06/10/20 16:00 39.5 06/10/20 16:00 107 24 131/88 (102) 98 Mechanical Ventilator 100.00 06/10/20 15:51 105 121/80 06/10/20 15:50 105 121/80 06/10/20 15:00 91 23 127/76 (93) 98 Mechanical Ventilator 100.00 06/10/20 14:00 94 23 120/79 (93) 98 Mechanical Ventilator 100.00 06/10/20 13:53 83 24 128/75 97 Mechanical Ventilator 90.00 06/10/20 13:00 90 11 128/75 (92) 99 Mechanical Ventilator 100.00 06/10/20 13:00 90 06/10/20 12:00 89 24 126/79 (95) 99 Mechanical Ventilator 100.00 06/10/20 11:34 38.6 06/10/20 11:00 82 23 134/80 (98) 98 Mechanical Ventilator 100.00 06/10/20 10:00 80 24 127/76 (93) 97 Mechanical Ventilator 100.00 06/10/20 09:55 80 115/69 06/10/20 09:50 80 115/69 06/10/20 09:43 78 95/62 06/10/20 09:43 80 24 95/62 97 Mechanical Ventilator 100.00 06/10/20 09:29 74 24 93 100 06/10/20 09:00 Mechanical Ventilator 96 06/10/20 09:00 82 21 115/69 (84) 98 Mechanical Ventilator 100.00 06/10/20 08:00 80 18 105/63 (77) 98 Mechanical Ventilator 100.00 06/10/20 07:00 76 06/10/20 07:00 77 21 121/69 (86) 97 Mechanical Ventilator 100.00 06/10/20 06:05 74 115/65 06/10/20 06:04 74 115/65 06/10/20 06:00 74 24 93 100 06/10/20 06:00 75 23 119/69 (86) 96 Mechanical Ventilator 100.00 06/10/20 05:12 37.6 74 25 115/65 91 Mechanical Ventilator 40.00 06/10/20 05:00 76 23 125/78 (94) 97 Mechanical Ventilator 100.00 I & O 06/11/20 07:00 Intake Total 2175 ml Output Total 1025 ml Balance 1150 ml Height & Weight Height: '" Weight: lbs. oz. kg; 30.00 BMI Method: General Appearance: No Apparent Distress, WD/WN, Chronically ill, Other (intubated) HEENT: PERRL/EOMI, Other (Very dry oral mucosa noted) Neck: Full Range of Motion Respiratory: Lungs Clear, Decreased Breath Sounds Cardiovascular: Regular Rate, Rhythm Capillary Refill: Less Than 3 Seconds Peripheral Pulses: 2+ Radial Pulses (R), 2+ Radial Pulses (L) Extremity: Normal Inspection, Normal Range of Motion, Non Tender, No Calf Tenderness Neurologic/Psychiatric: Oriented x3, No Motor/Sensory Deficits, Normal Mood/Affect Skin: Normal Color, Warm/Dry Results Lab Laboratory Tests 06/10/20 03:07 06/11/20 02:12 Assessment/Plan Assessment/Plan Acute respiratory failure secondary to COVID 19 -Continue ventilator care. -Start proning patient -give lasix 40mg IV x 1 -Decrease sedation COVID 19- PNA -Remdesivir 06/08 -Monitor LFTs with daily CMPs -Repeat BC, sputum, and UA -Start Zosyn for now -Check PCT. -CVP -Currently requiring Vapotherm at 85% -Continue Decadron 6mg IV -Start theraputic dose lovenox secondary to elevated DDImer -CTA of chest - nondiagnostic for PE secondary to poor timing -Check PCT, and BNP Elevated LFTs with elevated Bili -Check Abd HOWARD HOOKER DO Jun 11, 2020 05:03
[2020-06-11] MEDS ORDERED: FUROSEMIDE 40 MG/4 ML INJ (LASIX) ONE (05:11)
[2020-06-11] MEDS ORDERED: FUROSEMIDE 40 MG/4 ML INJ (LASIX) IVP ONE (05:15)
[2020-06-11] MEDS: PHENYLEPHRINE INJECTION 10 MG in NS (IVPB) 250 ML IV SCH ×4 (05:34→23:42)
[2020-06-11] MEDS: NS IV 1000 ML 1,000 ML IV SCH ×3 (05:35→19:59)
--- NOTE | 2020-06-11 05:48 | Diagnostic Imaging Report ---
INDICATION: COVID positive, abnormal chest x-ray AP view of the chest is obtained with comparison made to the study of 06/10/2020. Similar to the previous study, there is extensive bilateral airspace disease. No significant change is identified. There is no evidence of pneumothorax. Endotracheal tube reaches the mid trachea. Nasogastric tube passes below the diaphragm and there is no change in right jugular catheter. IMPRESSION: No significant change in extensive bilateral airspace disease. Dictated by: Dictated on workstation # [id number]
[2020-06-11] MEDS: NOREPINEPHRINE 4 MG/250 ML 250 ML IV SCH ×3 (07:47→19:58)
--- NOTE | 2020-06-11 07:56 | Physical Therapy Progress Note ---
Therapy Progress Note Patient is sedated and intubated. PT will continue to monitor patient status. FLORES TANG PT Jun 11, 2020 07:56
--- NOTE | 2020-06-11 08:31 | Occ Therapy Progress Note ---
Therapy Progress Note OT order received, chart reviewed. Pt. is sedated and on mechanical ventilation. Will continue to monitor and evaluate pt. when medically stable. 0831 JENNIFER JACOBSON OT Jun 11, 2020 08:31
[2020-06-11] MEDS: PANTOPRAZOLE 40 MG (PROTONIX) VIAL IV SCH (08:35)
[2020-06-11] MEDS: ENOXAPARIN 100 MG/1 ML (LOVENOX) SYR SC SCH ×2 (08:35→19:55)
[2020-06-11] MEDS: REMDESIVIR INJ 100 MG in NS (IVPB) 230 ML IV SCH (08:35)
[2020-06-11] MEDS ORDERED: PIPERACILLIN/TAZO 4.5 GM/NS 100 ML IV NR ×2 (09:15)
[2020-06-11 09:26] LABS: BILIRUBIN,URINE NEGATIVE (NEGATIVE); CLARITY,URINE CLEAR; COLOR,URINE YELLOW; GLUCOSE, URINE (UA) NEGATIVE (NEGATIVE); KETONES,URINE NEGATIVE (NEGATIVE); LEUKOCYTE ESTERASE ,URINE 3+ (NEGATIVE); NITRITE,URINE POSITIVE (NEGATIVE); PH,URINE 5.5 (5-9); PROTEIN,URINE NEGATIVE (NEGATIVE)
[2020-06-11 09:35] LABS: AMORPHOUS SEDIMENT,UR RARE AMOR URATES /LPF; BACTERIA,URINE FEW /HPF; SQUAMOUS EPITHELIAL CELL,UR 0-2 /HPF; WBC,URINE 25-50 /HPF
[2020-06-11] MEDS: fentaNYL INJECTION 1,250 MCG in NS (IVPB) 250 ML IV SCH ×2 (10:51→20:44)
[2020-06-11] MEDS: ACETAMINOPHEN 325 MG TABLET PO PRN (11:55)
--- NOTE | 2020-06-11 11:59 | NUR ---
CM/SS following for social service consult. CM/SS received referral due to physician and nurses not having a phone number for a patient. CM/SS spoke with the patient's nurse to verify that they did not have a contact number. The number on file for Yusuf Nye is [phone]. CM/SS attempted to call this number, number is disconnected. CM/SS contacted [facility] [address] to speak with a person in Human Resources. The worker states she will get in contact with family and they will call me back if permission is given. The patient's daughter Fara Abdi ([phone]) contacted this sw back. She was unaware that the patient was in the hospital. She states that the patient lives with her son, Fara's half brother. Fara reports she does not have his number. CM/SS gave the patient's primary care nurse Fara's number. CM/SS will continue to follow.
--- NOTE | 2020-06-11 12:10 | NUR ---
dr navarro updated on pts status. fio2 increased from 85% to 100% since assuming care of pt, o2 sats currently in low 90s. pt was awake and constantly coughing w/ propofol at 30 and fentanyl at 50, adjustments made; see iv spreadsheet for details.
[2020-06-11] MEDS ORDERED: CISATRACURIUM 2MG/ML (NIMBEX) 10ML VIAL IV ONE (13:15)
[2020-06-11] MEDS ORDERED: PHARMACY TO DOSE IV SCH (13:30)
[2020-06-11] MEDS: ARTIFICIAL TEARS OINT (LACRI-LUBE) 3.5 GM TUBE OU SCH ×5 (13:31→23:41)
[2020-06-11] MEDS: LORazepam INJ 2 MG/ML (ATIVAN) VIAL IV PRN (13:33)
[2020-06-11] MEDS ORDERED: CISATRACURIUM INJECTION 100 MG in NS (IVPB) 200 ML IV SCH (13:45)
[2020-06-11] MEDS ORDERED: PROPOFOL DRIP (ICU) 100 ML IV SCH (13:45)
[2020-06-11] MEDS ORDERED: fentaNYL INJECTION 1,250 MCG in NS (IVPB) 250 ML INJ SCH (13:45)
[2020-06-11] MEDS ORDERED: VANCOMYCIN 2000 MG/NS 500 ML IVPB IV SCH ×2 (14:15)
--- NOTE | 2020-06-11 14:19 | NUR ---
PTD VANCOMYCIN LABS: SCr 0.72, CrCl 106.2, BMI 44.7 LOADING DOSE 20MG/KG x 118 KG = 2360 ~ 2 GRAMS; MAINT DOSE 15MG/KG x 118 KG = 1770 ~ 1750MG Q12H. VANCOMYCIN TROUGH DUE 06/13 @ 0200. IF TROUGH IS >20, HOLD DOSE & NOTIFY PHARMACY FOR ADJUSTMENTS.
[2020-06-11] MEDS ORDERED: VANCOMYCIN 2000 MG/NS 500 ML IVPB IV NR ×2 (14:30)
--- NOTE | 2020-06-11 14:33 | Physical Therapy Progress Note ---
Therapy Progress Note Non skilled PROM performed B U/LE in available planes. Arms returned to restraints as were prior to PROM. Heels elevated. ALEKSADNR SLAUGHTER PT Jun 11, 2020 14:33
--- NOTE | 2020-06-11 14:45 | NUR ---
Received dietary consult regarding pt's vent status. Note pt is currently intubated/sedated. Would recommend trophic feeds of Pulmocare 1.5 at rate of 15ml/hr. Flush with 25ml water q4h for hydration status and to prevent tube from clogging. Will continue to follow and reassess as pt needs, intake, and status change. Nivia Murphy, MS RD LD [phone] (cell)
[2020-06-11] MEDS: PIPERACILLIN/TAZOBACTAM (BULK) 4.5 GM in NS (IVPB) 100 ML IV SCH ×2 (14:58→21:41)
--- NOTE | 2020-06-11 15:41 | NUR ---
DR YOU DOES NOT WANT TO START TUBE FEEDINGS AT THIS TIME.
[2020-06-11] MEDS ORDERED: ADENOSINE 6 MG/2 ML (ADENOCARD) VIAL IV ONE ×3 (16:05→16:15)
[2020-06-11] MEDS ORDERED: fentaNYL INJECTION 100 MCG/2 ML AMP ONE (16:13)
[2020-06-11] MEDS: fentaNYL INJECTION 100 MCG/2 ML AMP IVP PRN (16:17)
--- NOTE | 2020-06-11 16:26 | NUR ---
1557- PT NOTED TO BY IN SVT 170'S-180S, BP 90S/50S. TELE ICU NOTIFIED AND ASSESSING PT. THIS RN AND CRISTINO RN AT BEDSIDE. NEW ORDERS RECEIVED TO GIVE 6MG ADENOSINE IVP. PT PLACED ON ZOLL, PADS APPLIED. 6MG ADENOSINE GIVEN AT 1611, PT CONVERTED BACK TO SR. ADDITIONAL ORDERS RECEIVED TO GIVE 25MCG FENTANYL. DR YOU UPDATED ON THE ABOVE.
[2020-06-12] VITALS (30 sets, daily range): BP systolic 89–135; BP diastolic 44–76
[2020-06-12] MEDS: PROPOFOL DRIP (ICU) 100 ML IV SCH ×9 (01:33→23:34)
[2020-06-12 01:50] LABS: ABG BASE EXCESS -5.5 MMOL/L (-2.5-2.5); ABG OXYGEN SATURATION 98 % (94-100); ABG PCO2 41 MMHG (35-45); ABG PO2 106 MMHG (79-93)
[2020-06-12 01:51] LABS: ALLENS TEST POSITIVE; INSPIRED O2 70; PATIENT TEMP 37; VENTILATOR YES
[2020-06-12 01:53] LABS: BASOPHILS % (AUTO) 0 % (0-10); EOSINOPHILS # (AUTO) 0.1 10^3/uL (0.0-0.3); EOSINOPHILS % (AUTO) 1 % (0-10); HEMATOCRIT 33 % (35-52); HEMOGLOBIN 10.5 g/dL (11.5-16.0); LYMPHOCYTES # (AUTO) 0.4 10^3/uL (1.0-4.0); LYMPHOCYTES % (AUTO) 3 % (12-44); MEAN CORPUSCULAR HEMOGLOBIN 28 pg (25-34); MEAN CORPUSCULAR HGB CONC 32 g/dL (32-36); MEAN CORPUSCULAR VOLUME 85 fL (80-99); MEAN PLATELET VOLUME 10.1 fL (9.0-12.2); MONOCYTES # (AUTO) 0.4 10^3/uL (0.0-1.0); MONOCYTES % (AUTO) 3 % (0-12); NEUTROPHILS # (AUTO) 13.7 10^3/uL (1.8-7.8); NEUTROPHILS % (AUTO) 93 % (42-75); PLATELET COUNT 335 10^3/uL (130-400); WHITE BLOOD COUNT 14.8 10^3/uL (4.3-11.0)
[2020-06-12] MEDS: RT-ALBUTEROL INHALER HFA (VENTOLIN HFA) 18 GM IH SCH ×6 (02:09→21:32)
[2020-06-12 02:11] LABS: BUN/CREATININE RATIO 18; CALCIUM 7.7 MG/DL (8.5-10.1); CARBON DIOXIDE 17 MMOL/L (21-32); CHLORIDE 114 MMOL/L (98-107); CREATININE SERUM 0.84 MG/DL (0.60-1.30); GFR ESTIMATED > 60; GLUCOSE 113 MG/DL (70-105); MAGNESIUM 1.7 MG/DL (1.6-2.4); PHOSPHORUS 2.3 MG/DL (2.3-4.7); POTASSIUM 3.8 MMOL/L (3.6-5.0); SODIUM 142 MMOL/L (135-145)
[2020-06-12] MEDS: NOREPINEPHRINE 4 MG/250 ML 250 ML IV SCH ×4 (02:12→21:18)
[2020-06-12] MEDS: MAGNESIUM 1 GM/100 ML IVPB 100 ML IV SCH (02:13)
[2020-06-12] MEDS: KCL 20 MEQ TAB (K-DUR) PO SCH (02:13)
[2020-06-12] MEDS: ARTIFICIAL TEARS OINT (LACRI-LUBE) 3.5 GM TUBE OU SCH ×9 (02:13→23:30)
[2020-06-12] MEDS: POTASSIUM CL 10MEQ/50ML IVPB 50 ML IV SCH (02:13)
[2020-06-12] MEDS ORDERED: VANCOMYCIN 1,750 MG/NS 500 ML IVPB IV SCH ×2 (03:00)
[2020-06-12] MEDS: NS IV 1000 ML 1,000 ML IV SCH ×3 (04:44→21:51)
[2020-06-12] MEDS: PHENYLEPHRINE INJECTION 10 MG in NS (IVPB) 250 ML IV SCH ×4 (04:44→19:54)
[2020-06-12] MEDS: fentaNYL INJECTION 1,250 MCG in NS (IVPB) 250 ML IV SCH (04:49)
[2020-06-12] MEDS: PIPERACILLIN/TAZOBACTAM (BULK) 4.5 GM in NS (IVPB) 100 ML IV SCH ×3 (05:59→23:30)
--- NOTE | 2020-06-12 06:49 | Pulmonary Progress Note ---
Subjective Time Seen by a Provider: 06:47 Sepsis Event Evaluation Height, Weight, BMI Height: '" Weight: lbs. oz. kg; 30.00 BMI Method: Focused Exam Time of Focused Exam: 20:35 Exam Exam Vital Signs Date Time Temp Pulse Resp B/P (MAP) Pulse Ox O2 Delivery O2 Flow Rate FiO2 06/12/20 06:40 75 26 96 60 06/12/20 06:00 77 25 106/62 (77) 96 Mechanical Ventilator 60.00 06/12/20 05:00 76 25 106/60 (75) 96 Mechanical Ventilator 60.00 06/12/20 04:45 105/61 06/12/20 04:44 105/61 06/12/20 04:43 105/61 06/12/20 04:00 77 25 103/58 (73) 96 Mechanical Ventilator 60.00 06/12/20 03:48 78 25 97 Mechanical Ventilator 60.00 06/12/20 03:00 81 26 105/61 (76) 97 Mechanical Ventilator 70.00 06/12/20 02:10 82 24 97 80 06/12/20 02:10 37.0 06/12/20 02:00 84 23 101/61 (74) 97 Mechanical Ventilator 70.00 06/12/20 01:34 104/59 06/12/20 01:33 104/59 06/12/20 01:00 86 06/12/20 01:00 86 24 108/58 (75) 96 Mechanical Ventilator 70.00 06/12/20 00:00 89 23 104/60 (75) 96 Mechanical Ventilator 70.00 06/11/20 23:42 104/60 06/11/20 23:40 37.2 Mechanical Ventilator 70.00 06/11/20 23:00 89 24 106/63 (77) 97 Mechanical Ventilator 80.00 06/11/20 22:05 89 24 97 80 06/11/20 22:00 87 23 107/58 (74) 97 Mechanical Ventilator 80.00 06/11/20 21:46 Mechanical Ventilator 80.00 06/11/20 21:41 106/63 06/11/20 21:40 106/63 06/11/20 21:00 90 23 104/60 (75) 97 Mechanical Ventilator 90.00 06/11/20 20:11 90 Mechanical Ventilator 93 06/11/20 20:00 96 24 115/67 (83) 97 Mechanical Ventilator 90.00 06/11/20 19:56 37.2 Mechanical Ventilator 90.00 06/11/20 19:51 100 24 97 90 06/11/20 19:00 93 06/11/20 19:00 93 20 109/63 (78) 96 Mechanical Ventilator 90.00 06/11/20 18:05 96 124/75 06/11/20 17:12 Mechanical Ventilator 90.00 06/11/20 17:08 96 124/75 06/11/20 17:07 96 124/75 06/11/20 17:00 96 24 108/61 (77) 97 Mechanical Ventilator 100.00 06/11/20 16:00 172 27 114/61 (78) 92 Mechanical Ventilator 100.00 06/11/20 15:04 37.7 06/11/20 15:00 101 24 112/69 (83) 92 Mechanical Ventilator 100.00 06/11/20 14:00 97 26 103/60 (74) 97 Mechanical Ventilator 100.00 06/11/20 13:36 96 124/75 06/11/20 13:29 96 25 97 100 06/11/20 13:19 37.9 06/11/20 13:00 96 27 101/57 (72) 96 Mechanical Ventilator 100.00 06/11/20 12:38 94 06/11/20 12:01 Mechanical Ventilator 100.00 06/11/20 12:00 102 40 110/78 (89) 85 Mechanical Ventilator 90.00 06/11/20 11:55 38.1 06/11/20 11:55 98 136/79 06/11/20 11:54 96 136/79 06/11/20 11:46 38.1 06/11/20 11:09 98 28 90 100 06/11/20 11:00 96 25 136/79 (98) 89 Mechanical Ventilator 90.00 06/11/20 10:00 89 27 114/67 (83) 93 Mechanical Ventilator 90.00 06/11/20 09:37 90 Mechanical Ventilator 93 06/11/20 09:04 Mechanical Ventilator 90.00 06/11/20 09:01 91 113/70 06/11/20 09:00 95 19 125/72 (89) 89 Mechanical Ventilator 85.00 06/11/20 08:40 37.1 06/11/20 08:00 76 27 104/71 (82) 89 Mechanical Ventilator 85.00 06/11/20 07:00 79 25 112/73 (86) 93 Mechanical Ventilator 85.00 06/11/20 06:52 73 24 93 85 06/11/20 06:49 91/56 I & O 06/12/20 07:00 Intake Total 5619.5 ml Output Total 2775 ml Balance 2844.5 ml Height & Weight Height: '" Weight: lbs. oz. kg; 30.00 BMI Method: General Appearance: No Apparent Distress, WD/WN, Chronically ill, Other (intubated) HEENT: PERRL/EOMI, Other (Very dry oral mucosa noted) Neck: Full Range of Motion Respiratory: Lungs Clear, Decreased Breath Sounds Cardiovascular: Regular Rate, Rhythm Capillary Refill: Less Than 3 Seconds Peripheral Pulses: 2+ Radial Pulses (R), 2+ Radial Pulses (L) Extremity: Normal Inspection, Normal Range of Motion, Non Tender, No Calf Tenderness Neurologic/Psychiatric: Oriented x3, No Motor/Sensory Deficits, Normal Mood/Affect Skin: Normal Color, Warm/Dry Results Lab Laboratory Tests 06/11/20 02:12 06/12/20 01:30 Assessment/Plan Assessment/Plan Acute respiratory failure secondary to COVID 19 -Continue ventilator care. -Start proning patient -Decrease sedation COVID 19- PNA -Remdesivir 06/08 -Monitor LFTs with daily CMPs -Repeat BC, sputum, and UA -Start Zosyn for now -Check PCT. -CVP -Currently requiring Vapotherm at 85% -Continue Decadron 6mg IV -Start theraputic dose lovenox secondary to elevated DDImer -CTA of chest - nondiagnostic for PE secondary to poor timing -Check PCT, and BNP Elevated LFTs with elevated Bili -Check Abd US HOWARD YOU DO Jun 12, 2020 06:49
[2020-06-12] MEDS ORDERED: fentaNYL INJECTION 100 MCG/2 ML AMP IV ONE (07:35)
[2020-06-12] MEDS ORDERED: SUCCINYLCHOLINE INJ 100 MG/5 ML SYR/VIAL INJ ONE (07:35)
[2020-06-12] MEDS ORDERED: MIDAZOLAM 5 MG/5 ML (VERSED) VIAL IVP ONE (07:35)
[2020-06-12] MEDS ORDERED: ROCURONIUM 10 MG/ML 5 ML SYRINGE IV ONE (07:35)
[2020-06-12] MEDS ORDERED: ETOMIDATE IV SOLN 20 MG/10 ML VIAL IV ONE (07:35)
--- NOTE | 2020-06-12 08:02 | Physical Therapy Progress Note ---
Therapy Progress Note Patient remains sedated and intubated. PT will continue to follow. FLORES TANG PT Jun 12, 2020 08:02
--- NOTE | 2020-06-12 08:11 | Diagnostic Imaging Report ---
EXAMINATION: Chest radiograph, portable AP view. DATE: 06/12/2020 7:32 AM hours. INDICATION: 60-year-old female, shortness of breath. The patient is COVID positive. COMPARISON: June 11, 2020. FINDINGS: The endotracheal tube is approximately 5 cm above the mark. The nasogastric tube tip appears to be at the level of the stomach. There are technical limitations of the study relating to patient body habitus and difficulties with exposure. Right internal jugular central venous line overlies the mid SVC. Grossly unchanged overall appearance of the cardiomediastinal silhouette. There is no identified pneumothorax. There is multifocal bilateral lung consolidation with grossly unchanged appearance. IMPRESSION: 1. Grossly unchanged multifocal bilateral airspace consolidation. 2. Support lines and tubes as above. Dictated by: Dictated on workstation # [id number]
--- NOTE | 2020-06-12 08:20 | Occ Therapy Progress Note ---
Therapy Progress Note Pt. continues on ventilator support. Will continue to monitor and follow. 0820 JENNIFER JACOBSON OT Jun 12, 2020 08:20
[2020-06-12] MEDS: ENOXAPARIN 100 MG/1 ML (LOVENOX) SYR SC SCH ×2 (09:35→18:45)
[2020-06-12] MEDS: PANTOPRAZOLE 40 MG (PROTONIX) VIAL IV SCH (09:35)
[2020-06-12] MEDS: REMDESIVIR INJ 100 MG in NS (IVPB) 230 ML IV SCH (09:36)
--- NOTE | 2020-06-12 11:55 | Physical Therapy Progress Note ---
Therapy Progress Note Non skilled PROM performed B U/LE in available planes. Arms returned to restraints as were prior to PROM. ALEKSANDR SLAUGHTER PT Jun 12, 2020 11:55
--- NOTE | 2020-06-12 15:58 | NUR ---
CM/SS follow up. CM/SS spoke with the patient's nurse. She states she has updated the patient's daughter Fara that she is still requiring a lot of oxygen and pressors for her blood pressure. CM/SS will continue to follow for discharge planning.
[2020-06-12] MEDS: fentaNYL 1,250 MCG/NS 250 ML DRIP IV SCH (17:16)
--- NOTE | 2020-06-12 21:04 | NUR ---
PT'S O2 SAT: 97% ON 45% FIO2 WITH A CURRENT PEEP OF 20. THIS RN CALLED E-ICU IN REGARDS TO VENT SETTINGS. NEW ORDER RECEIVED TO LOWER PEEP BY 2 EVERY 2 HOURS UNTIL 8 TOLERATED BY PATIENT, THEN CALL E-ICU BACK. R/T NOTIFIED OF NEW ORDERS.
--- NOTE | 2020-06-12 23:30 | NUR ---
PEEP DECREASED TO 16 PER E-ICU. PT TOLERATING WELL; RR 26 AND O2 SAT 98% ON 45% FIO2.
[2020-06-13] VITALS (29 sets, daily range): BP systolic 95–142; BP diastolic 54–74
[2020-06-13] MEDS: PROPOFOL DRIP (ICU) 100 ML IV SCH ×6 (01:09→20:17)
[2020-06-13] MEDS: fentaNYL 1,250 MCG/NS 250 ML DRIP IV SCH ×3 (01:09→17:32)
--- NOTE | 2020-06-13 01:17 | NUR ---
PEEP DECREASED TO 14 AT THIS TIME PER E-ICU'S ORDER. PT TOLERATING WELL; RR 26 AND 97% ON 45% FIO2.
[2020-06-13] MEDS: RT-ALBUTEROL INHALER HFA (VENTOLIN HFA) 18 GM IH SCH ×5 (01:29→20:03)
[2020-06-13] MEDS ORDERED: TROUGH ORDER-PHARMACY XX NR (02:00)
[2020-06-13 03:08] LABS: ABG BASE EXCESS -6.5 MMOL/L (-2.5-2.5); ABG OXYGEN SATURATION 96 % (94-100); ABG PCO2 36 MMHG (35-45); ABG PO2 72 MMHG (79-93); ABG TCO2 19.5 MMOL/L (21.0-31.0)
[2020-06-13 03:15] LABS: ALLENS TEST NEGATIVE; INSPIRED O2 45; PATIENT TEMP 36.8; VENTILATOR YES
[2020-06-13 03:16] LABS: ABG PH 7.33 (7.37-7.43)
[2020-06-13 03:31] LABS: CHLORIDE 117 MMOL/L (98-107); POTASSIUM 3.5 MMOL/L (3.6-5.0); SODIUM 143 MMOL/L (135-145)
[2020-06-13 03:35] LABS: BASOPHILS % (AUTO) 0 % (0-10); EOSINOPHILS # (AUTO) 0.1 10^3/uL (0.0-0.3); EOSINOPHILS % (AUTO) 1 % (0-10); HEMATOCRIT 31 % (35-52); HEMOGLOBIN 9.8 g/dL (11.5-16.0); LYMPHOCYTES # (AUTO) 0.5 10^3/uL (1.0-4.0); LYMPHOCYTES % (AUTO) 6 % (12-44); MEAN CORPUSCULAR HEMOGLOBIN 27 pg (25-34); MEAN CORPUSCULAR HGB CONC 31 g/dL (32-36); MEAN CORPUSCULAR VOLUME 86 fL (80-99); MEAN PLATELET VOLUME 10.5 fL (9.0-12.2); MONOCYTES # (AUTO) 0.3 10^3/uL (0.0-1.0); MONOCYTES % (AUTO) 4 % (0-12); NEUTROPHILS # (AUTO) 6.6 10^3/uL (1.8-7.8); NEUTROPHILS % (AUTO) 87 % (42-75); PLATELET COUNT 299 10^3/uL (130-400); WHITE BLOOD COUNT 7.6 10^3/uL (4.3-11.0)
[2020-06-13 03:47] LABS: BUN/CREATININE RATIO 21; CALCIUM 7.6 MG/DL (8.5-10.1); CARBON DIOXIDE 16 MMOL/L (21-32); CREATININE SERUM 0.71 MG/DL (0.60-1.30); GFR ESTIMATED > 60; GLUCOSE 108 MG/DL (70-105)
[2020-06-13 03:48] LABS: MAGNESIUM 1.9 MG/DL (1.6-2.4); PHOSPHORUS 2.1 MG/DL (2.3-4.7)
[2020-06-13] MEDS: POTASSIUM CL 10MEQ/50ML IVPB 50 ML IV SCH ×3 (04:11→07:27)
[2020-06-13] MEDS: MAGNESIUM 1 GM/100 ML IVPB 100 ML IV SCH (04:11)
[2020-06-13] MEDS: NOREPINEPHRINE 4 MG/250 ML 250 ML IV SCH (04:11)
[2020-06-13] MEDS: KCL 20 MEQ TAB (K-DUR) PO SCH (04:12)
[2020-06-13 04:16] LABS: TRIGLYCERIDES 172 MG/DL (<150)
[2020-06-13] MEDS ORDERED: POTASSIUM PHOSPHATE INJ 30 MM in NS (IVPB) 250 ML IV ONE (05:00)
[2020-06-13] MEDS ORDERED: FUROSEMIDE 40 MG/4 ML INJ (LASIX) IVP ONE (05:00)
--- NOTE | 2020-06-13 05:00 | Pulmonary Progress Note ---
Subjective Time Seen by a Provider: 04:55 Sepsis Event Evaluation Height, Weight, BMI Height: '" Weight: lbs. oz. kg; 30.00 BMI Method: Focused Exam Time of Focused Exam: 20:35 Exam Exam Vital Signs Date Time Temp Pulse Resp B/P (MAP) Pulse Ox O2 Delivery O2 Flow Rate FiO2 06/13/20 01:29 72 27 93 45 06/13/20 01:09 69 112/60 06/13/20 01:00 68 06/12/20 23:34 69 112/60 06/12/20 23:00 69 25 112/60 (77) 98 Mechanical Ventilator 45.00 06/12/20 22:00 73 25 116/62 (80) 98 Mechanical Ventilator 45.00 06/12/20 21:32 70 27 97 45 06/12/20 21:00 95 Mechanical Ventilator 60 06/12/20 21:00 74 26 114/60 (78) 97 Mechanical Ventilator 45.00 06/12/20 20:56 Mechanical Ventilator 45.00 06/12/20 20:00 73 25 128/71 (90) 99 Mechanical Ventilator 60.00 06/12/20 19:54 73 116/64 06/12/20 19:18 37.3 06/12/20 19:00 73 25 115/62 (79) 97 Mechanical Ventilator 60.00 06/12/20 19:00 73 06/12/20 18:49 73 26 37 60 06/12/20 18:45 74 25 116/64 (81) 96 Mechanical Ventilator 60.00 06/12/20 18:00 76 25 118/63 (81) 96 Mechanical Ventilator 60.00 06/12/20 17:19 81 115/61 06/12/20 17:16 81 115/61 06/12/20 17:00 76 26 115/64 (81) 98 Mechanical Ventilator 60.00 06/12/20 16:07 37.3 06/12/20 16:00 37.1 06/12/20 16:00 68 25 135/76 (95) 98 Mechanical Ventilator 60.00 06/12/20 15:00 80 26 127/73 (91) 95 Mechanical Ventilator 60.00 06/12/20 14:40 78 81/42 06/12/20 14:24 79 26 94 60 06/12/20 14:00 73 25 96 Mechanical Ventilator 60.00 06/12/20 13:00 71 25 115/58 (77) 96 Mechanical Ventilator 60.00 06/12/20 12:37 72 06/12/20 12:00 75 26 106/57 (73) 94 Mechanical Ventilator 60.00 06/12/20 11:35 77 109/54 06/12/20 11:34 36.7 06/12/20 11:02 76 26 97 80 06/12/20 11:00 77 26 106/55 (72) 96 Mechanical Ventilator 60.00 06/12/20 10:00 79 26 109/61 (77) 96 Mechanical Ventilator 60.00 06/12/20 09:38 78 97/63 06/12/20 09:37 77 97/63 06/12/20 09:00 90 Mechanical Ventilator 80 06/12/20 09:00 77 25 94/63 (73) 98 Mechanical Ventilator 60.00 06/12/20 08:15 36.4 06/12/20 08:00 78 26 100/64 (76) 97 Mechanical Ventilator 60.00 06/12/20 07:00 74 25 103/60 (74) 96 Mechanical Ventilator 60.00 06/12/20 06:42 76 06/12/20 06:40 75 26 96 60 06/12/20 06:00 77 25 106/62 (77) 96 Mechanical Ventilator 60.00 06/12/20 05:00 76 25 106/60 (75) 96 Mechanical Ventilator 60.00 I & O 06/13/20 07:00 Intake Total 2370 ml Output Total 1025 ml Balance 1345 ml Height & Weight Height: '" Weight: lbs. oz. kg; 30.00 BMI Method: General Appearance: No Apparent Distress, WD/WN, Chronically ill, Other (intubated) HEENT: PERRL/EOMI, Other (Very dry oral mucosa noted) Neck: Full Range of Motion Respiratory: Lungs Clear, Decreased Breath Sounds Cardiovascular: Regular Rate, Rhythm Capillary Refill: Less Than 3 Seconds Peripheral Pulses: 2+ Radial Pulses (R), 2+ Radial Pulses (L) Extremity: Normal Inspection, Normal Range of Motion, Non Tender, No Calf Tenderness Neurologic/Psychiatric: Oriented x3, No Motor/Sensory Deficits, Normal Mood/Affect Skin: Normal Color, Warm/Dry Results Lab Laboratory Tests 06/12/20 01:30 06/13/20 02:45 Assessment/Plan Assessment/Plan Acute respiratory failure secondary to COVID 19 -Intubated 06/09 -Continue ventilator care. -Start proning patient -Decrease sedation COVID 19- PNA -Remdesivir 06/08 -Monitor LFTs with daily CMPs -Repeat BC, sputum, and UA -Start Zosyn for now -Check PCT. -CVP -Currently requiring Vapotherm at 85% -Continue Decadron 6mg IV -Start theraputic dose lovenox secondary to elevated DDImer -CTA of chest - nondiagnostic for PE secondary to poor timing -Check PCT, and BNP Elevated LFTs with elevated Bili -Check Abd HOWARD HOOKER DO Jun 13, 2020 05:00
[2020-06-13] MEDS: ARTIFICIAL TEARS OINT (LACRI-LUBE) 3.5 GM TUBE OU SCH ×8 (06:21→20:18)
[2020-06-13] MEDS: LACTATED RINGERS 1,000 ML IV SCH (06:22)
--- NOTE | 2020-06-13 08:15 | Diagnostic Imaging Report ---
INDICATION: Respiratory distress Portable chest 7:33 AM There is an ET tube projects over the trachea. NG tube tip is near the GE junction. Right IJ central line tip projects over the SVC. There is a large consolidating infiltrate in the left lower lung and there is infiltrate in the lateral aspect of the right midlung. These infiltrates are not significantly changed from the previous day. There is no effusion or pneumothorax. IMPRESSION: Stable chest with bilateral pulmonary infiltrates. NG tube tip appears to be at the gastroesophageal junction. Dictated by: Dictated on workstation # [id number]
--- NOTE | 2020-06-13 08:32 | Physician Query Clarification ---
PQ-Intro New Diagnosis Admission/Discharge Admission Date: Jun 07, 2020 at 22:36 Discharge Date: The medical record reflects the following clinical scenario: Dr. Hale, History/Risk Factors: COVID 19 Pneumonia Acute respiratory failure secondary to COVID 19. Clinical Findings: WBC 10.3, T 38.6 P 99, Resp 43, BP 131/56, pulse ox 85%. Lactic acid 1.71, blood culture final-Staphylococcus hominis isolated. Treatment: IV Remdesivir 200mg anti viral. Dr. Santillan listed sepsis under FOCUSED EXAM on ED record only- not listed in any other documentation. Question: What condition best reflects the above clinical scenario? Please document a response in the Progress Noter or Discharge Summary. 1. Sepsis with severe sepsis due to COVID 19. 2. Sepsis due to COVID 19. 3. No sepsis. 4. Other, with explanation of the clinical findings. 5. Clinically undetermined, no explanation for the clinical findings. Please remember a lack of response to the above will prompt a phone page by CDI/Coding staff. In responding to this query, please exercise your independent professional judgment. The purpose of this communication is to more accurately reflect the complexity of your patients condition. The fact that a question is asked does not imply that any particular answer is desired or expected. Thank you for your timely response to this clarification. Requestors name: Kelley Gonzalez [facility] [phone] THIS PHYSICIAN QUERY FORM IS A PERMANENT PART OF THE MEDICAL RECORD KELLEY GONZALEZ Jun 13, 2020 08:32
--- NOTE | 2020-06-13 08:34 | Physician Query Clarification ---
PQ-Intro New Diagnosis Admission/Discharge Admission Date: Jun 07, 2020 at 22:36 Discharge Date: The medical record reflects the following clinical scenario: History/Risk Factors: [list no more than 2] Clinical Findings: [list no more than 2] Treatment: [list no more than 2] Question: What condition best reflects the above clinical scenario? Please document a response in the Progress Noter or Discharge Summary. 1. [list #1 diagnosis choice/organism] 2. [list the diagnosis/condition already documented] 3. Other, with explanation of the clinical findings. 4. Clinically undetermined, no explanation for the clinical findings. Please remember a lack of response to the above will prompt a phone page by CDI/Coding staff. In responding to this query, please exercise your independent professional judgment. The purpose of this communication is to more accurately reflect the complexity of your patients condition. The fact that a question is asked does not imply that any particular answer is desired or expected. Thank you for your timely response to this clarification. Requestors name: [ ] Phone # [ ] THIS PHYSICIAN QUERY FORM IS A PERMANENT PART OF THE MEDICAL RECORD BRENNA GONZALEZ Jun 13, 2020 08:34
[2020-06-13] MEDS: PANTOPRAZOLE 40 MG (PROTONIX) VIAL IV SCH (08:44)
[2020-06-13] MEDS: ENOXAPARIN 100 MG/1 ML (LOVENOX) SYR SC SCH (08:44)
[2020-06-13] MEDS: LORazepam INJ 2 MG/ML (ATIVAN) VIAL IV PRN (08:55)
[2020-06-13] MEDS: PIPERACILLIN/TAZOBACTAM (BULK) 4.5 GM in NS (IVPB) 100 ML IV SCH ×2 (09:19→15:15)
--- NOTE | 2020-06-13 09:59 | Physical Therapy Progress Note ---
Therapy Progress Note Patient continues to be intubated and sedated, will monitor. MYESHA DIEGO PT Jun 13, 2020 09:59
--- NOTE | 2020-06-13 10:44 | NUR ---
During care rounds, it was discussed to initiate enteral nutrition. Would recommend Pulmocare 1.5 kcal at rate of 15ml/hr, with flushes of 25ml water q4h. Will continue to follow and reassess as pt needs, intake, and status change. Nivia Murphy, MS RD LD [phone] (cell)
--- NOTE | 2020-06-13 11:39 | Occ Therapy Progress Note ---
Therapy Progress Note Continuing to monitor pt. Will evaluate when medically stable without ventilator support. [id number] JENNIFER JACOBSON OT Jun 13, 2020 11:39
--- NOTE | 2020-06-13 15:00 | Physical Therapy Progress Note ---
Therapy Progress Note Non skilled PROM B U/LE's in available planes. ALEKSANDR SLAUGHTER PT Jun 13, 2020 15:00
[2020-06-13] MEDS: ENOXAPARIN 300 MG/3 ML (LOVENOX) MULTI-DOSE VIAL SQ SCH (20:17)
[2020-06-14] VITALS (29 sets, daily range): BP systolic 93–162; BP diastolic 52–98
[2020-06-14] MEDS: RT-ALBUTEROL INHALER HFA (VENTOLIN HFA) 18 GM IH SCH ×6 (00:14→20:09)
[2020-06-14] MEDS: PIPERACILLIN/TAZOBACTAM (BULK) 4.5 GM in NS (IVPB) 100 ML IV SCH ×4 (00:37→23:40)
[2020-06-14] MEDS: ARTIFICIAL TEARS OINT (LACRI-LUBE) 3.5 GM TUBE OU SCH ×12 (00:37→23:40)
[2020-06-14] MEDS: PROPOFOL DRIP (ICU) 100 ML IV SCH ×5 (02:54→17:39)
[2020-06-14] MEDS: fentaNYL 1,250 MCG/NS 250 ML DRIP IV SCH ×3 (02:55→20:57)
[2020-06-14 03:30] LABS: BASOPHILS % (AUTO) 0 % (0-10); EOSINOPHILS # (AUTO) 0.1 10^3/uL (0.0-0.3); EOSINOPHILS % (AUTO) 2 % (0-10); HEMATOCRIT 30 % (35-52); HEMOGLOBIN 9.6 g/dL (11.5-16.0); LYMPHOCYTES # (AUTO) 0.5 10^3/uL (1.0-4.0); LYMPHOCYTES % (AUTO) 10 % (12-44); MEAN CORPUSCULAR HEMOGLOBIN 27 pg (25-34); MEAN CORPUSCULAR HGB CONC 32 g/dL (32-36); MEAN CORPUSCULAR VOLUME 85 fL (80-99); MEAN PLATELET VOLUME 10.4 fL (9.0-12.2); MONOCYTES # (AUTO) 0.3 10^3/uL (0.0-1.0); MONOCYTES % (AUTO) 5 % (0-12); NEUTROPHILS # (AUTO) 4.2 10^3/uL (1.8-7.8); NEUTROPHILS % (AUTO) 79 % (42-75); PLATELET COUNT 300 10^3/uL (130-400); WHITE BLOOD COUNT 5.3 10^3/uL (4.3-11.0)
[2020-06-14 03:31] LABS: ABG BASE EXCESS -3.7 MMOL/L (-2.5-2.5); ABG OXYGEN SATURATION 94 % (94-100); ABG PCO2 35 MMHG (35-45); ABG PH 7.39 (7.37-7.43); ABG PO2 60 MMHG (79-93); ABG TCO2 21.5 MMOL/L (21.0-31.0)
[2020-06-14 03:34] LABS: ALLENS TEST POS; INSPIRED O2 45%; PATIENT TEMP 36.6; VENTILATOR YES
[2020-06-14 03:48] LABS: CHLORIDE 115 MMOL/L (98-107); POTASSIUM 3.5 MMOL/L (3.6-5.0); SODIUM 144 MMOL/L (135-145)
[2020-06-14 03:49] LABS: CALCIUM 7.7 MG/DL (8.5-10.1)
[2020-06-14 03:50] LABS: GLUCOSE 101 MG/DL (70-105)
[2020-06-14 03:51] LABS: CARBON DIOXIDE 19 MMOL/L (21-32)
[2020-06-14 03:53] LABS: GFR ESTIMATED > 60; PHOSPHORUS 2.5 MG/DL (2.3-4.7)
[2020-06-14 03:54] LABS: BUN/CREATININE RATIO 20
[2020-06-14] MEDS: POTASSIUM CL 10MEQ/50ML IVPB 50 ML IV SCH ×6 (04:58→10:57)
[2020-06-14] MEDS: KCL 20 MEQ TAB (K-DUR) PO SCH (04:58)
[2020-06-14] MEDS: MAGNESIUM 1 GM/100 ML IVPB 100 ML IV SCH (04:58)
[2020-06-14] MEDS: LACTATED RINGERS 1,000 ML IV SCH ×2 (05:06→11:59)
--- NOTE | 2020-06-14 05:51 | Pulmonary Progress Note ---
Subjective Time Seen by a Provider: 05:49 Sepsis Event Evaluation Height, Weight, BMI Height: '" Weight: lbs. oz. kg; 30.00 BMI Method: Focused Exam Lactate Level 06/13/20 06:15: Lactic Acid Level 0.86 Time of Focused Exam: 20:35 Exam Exam Vital Signs Date Time Temp Pulse Resp B/P (MAP) Pulse Ox O2 Delivery O2 Flow Rate FiO2 06/14/20 04:00 77 32 119/60 (79) 92 Mechanical Ventilator 45.00 06/14/20 03:05 99 105/55 06/14/20 03:00 82 27 113/53 (73) 92 Mechanical Ventilator 45.00 06/14/20 02:54 99 105/55 06/14/20 02:00 89 27 122/64 (83) 95 Mechanical Ventilator 45.00 06/14/20 01:00 89 23 120/59 (79) 94 Mechanical Ventilator 45.00 06/14/20 01:00 88 06/14/20 00:16 99 28 93 45 06/14/20 00:00 84 28 123/98 (106) 93 Mechanical Ventilator 45.00 06/13/20 23:00 82 25 109/66 (80) 96 Mechanical Ventilator 50.00 06/13/20 22:16 Mechanical Ventilator 50.00 06/13/20 22:00 89 23 123/61 (81) 95 Mechanical Ventilator 55.00 06/13/20 21:00 91 22 116/61 (79) 96 Mechanical Ventilator 65.00 06/13/20 21:00 95 Mechanical Ventilator 80 06/13/20 20:29 Mechanical Ventilator 65.00 06/13/20 20:18 Mechanical Ventilator 70.00 06/13/20 20:17 90 99/58 06/13/20 20:03 90 30 98 80 06/13/20 20:00 92 26 122/64 (83) 98 Mechanical Ventilator 80.00 06/13/20 19:16 36.8 06/13/20 19:00 Mechanical Ventilator 80.00 06/13/20 19:00 95 06/13/20 19:00 92 19 125/66 (85) 98 Mechanical Ventilator 80.00 06/13/20 18:59 90 119/64 06/13/20 18:00 98 25 120/64 (82) 98 Mechanical Ventilator 45.00 06/13/20 17:00 96 26 124/61 (82) 96 Mechanical Ventilator 45.00 06/13/20 16:00 86 26 115/58 (77) 98 Mechanical Ventilator 45.00 06/13/20 15:44 37.3 06/13/20 15:16 90 109/63 06/13/20 15:00 92 21 115/58 (77) 97 Mechanical Ventilator 45.00 06/13/20 14:15 90 30 95 80 06/13/20 14:00 92 25 113/66 (82) 91 Mechanical Ventilator 45.00 06/13/20 13:00 89 21 103/54 (70) 96 Mechanical Ventilator 45.00 06/13/20 12:00 88 23 111/60 (77) 92 Mechanical Ventilator 45.00 06/13/20 11:40 37.1 06/13/20 11:08 89 28 95 100 06/13/20 11:00 89 24 95/62 (73) 96 Mechanical Ventilator 45.00 06/13/20 10:25 115/63 06/13/20 10:00 85 33 117/67 (84) 88 Mechanical Ventilator 45.00 06/13/20 09:00 90 Mechanical Ventilator 100 06/13/20 08:59 37.0 84 26 115/54 (74) 95 80.00 06/13/20 08:18 69 29 87 100 06/13/20 08:00 80 30 122/63 (82) 87 Mechanical Ventilator 45.00 06/13/20 07:27 67 107/54 06/13/20 07:00 69 26 123/74 (90) 97 Mechanical Ventilator 45.00 06/13/20 06:00 67 26 107/54 (71) 98 Mechanical Ventilator 45.00 I & O 06/14/20 07:00 Intake Total 805 ml Output Total 1350 ml Balance -545 ml Height & Weight Height: '" Weight: lbs. oz. kg; 30.00 BMI Method: General Appearance: No Apparent Distress, WD/WN, Chronically ill, Other (intubated) HEENT: PERRL/EOMI, Other (Very dry oral mucosa noted) Neck: Full Range of Motion Respiratory: Lungs Clear, Decreased Breath Sounds Cardiovascular: Regular Rate, Rhythm Capillary Refill: Less Than 3 Seconds Peripheral Pulses: 2+ Radial Pulses (R), 2+ Radial Pulses (L) Extremity: Normal Inspection, Normal Range of Motion, Non Tender, No Calf Tenderness Neurologic/Psychiatric: Oriented x3, No Motor/Sensory Deficits, Normal Mood/Affect Skin: Normal Color, Warm/Dry Results Lab Laboratory Tests 06/13/20 02:45 06/14/20 02:50 Assessment/Plan Assessment/Plan Acute respiratory failure secondary to COVID 19 -Intubated 06/09 -Continue ventilator care. -Start proning patient -Decrease sedation COVID 19- PNA -Remdesivir 06/08 -Monitor LFTs with daily CMPs -Zosyn for now -Check PCT. -CVP -Currently requiring Vapotherm at 85% -Continue Decadron 6mg IV -Start theraputic dose lovenox secondary to elevated DDImer -CTA of chest - nondiagnostic for PE secondary to poor timing -Check PCT, and BNP Elevated LFTs with elevated Bili -Check Abd HOWARD HOOKER DO Jun 14, 2020 05:51
--- NOTE | 2020-06-14 07:59 | Physical Therapy Progress Note ---
Therapy Progress Note Patient remains sedated and intubated. PT will continue to follow and initiate treatment when patient is medically stable and able to actively participate with skilled therapy. FLORES TANG PT Jun 14, 2020 07:59
--- NOTE | 2020-06-14 08:02 | Occ Therapy Progress Note ---
Therapy Progress Note Pt is currently sedated/ on mechanical ventilation. OT to hold tx this date and initiate when medically stable/ able to participate in skilled tx. PIERRE HERNÁNDEZ OTR Jun 14, 2020 08:02
[2020-06-14] MEDS: PANTOPRAZOLE 40 MG (PROTONIX) VIAL IV SCH (08:04)
[2020-06-14] MEDS: ENOXAPARIN 300 MG/3 ML (LOVENOX) MULTI-DOSE VIAL SQ SCH ×2 (08:04→20:54)
--- NOTE | 2020-06-14 08:05 | Diagnostic Imaging Report ---
INDICATION: Respiratory failure Portable chest 7:44 AM There is an ET tube projecting over the trachea. NG tube projects over the stomach. Right IJ central line tip projects over the SVC. There are bilateral pulmonary infiltrates. These have increased in distribution of the right lung. There appears to be similar distribution of left lung compared to the previous day. IMPRESSION: Bilateral pulmonary infiltrates with increased distribution the right lung compared to the previous day. Dictated by: Dictated on workstation # [id number]
[2020-06-14] MEDS ORDERED: FUROSEMIDE 40 MG/4 ML INJ (LASIX) IVP NR (08:30)
[2020-06-14] MEDS ORDERED: ROCURONIUM 50 MG/5 ML (ZEMURON) VIAL IV ONE (08:34)
[2020-06-14] MEDS ORDERED: PROPOFOL DRIP (ICU) 100 ML IV SCH (08:45)
[2020-06-14] MEDS ORDERED: CISATRACURIUM 2MG/ML (NIMBEX) 10ML VIAL IV ONE (08:45)
[2020-06-14] MEDS ORDERED: ROCURONIUM 10 MG/ML 5 ML SYRINGE IV NR (08:45)
--- NOTE | 2020-06-14 13:01 | NUR ---
During care rounds, it was noted pt is currently receiving Pulmocare 1.5 kcal at rate of 15ml/hr with flushes of 25ml water q4h. Would recommend continue current rate at this time. Nivia Murphy, MS RD LD [phone]
--- NOTE | 2020-06-14 13:39 | Physical Therapy Progress Note ---
Therapy Progress Note Non skilled PROM B U/LE's performed in available planes. ALEKSANDR SLAUGHTER PT Jun 14, 2020 13:39
--- NOTE | 2020-06-14 15:15 | NUR ---
CM/SS follow up. CM/SS spoke with the patient's daughter Fara to give an update. She reports that she was able to go visit the patient's son. The patient's son was at the house but had complaints of not feeling well and believes he has had Covid. Fara gave Yusuf this sw's number, ICU number, and password. The last known contact from Yusuf per ICU nurse is x1 on Thursday. CM/SS spoke with Fara via phone to discuss the possibility of needing a rehab unit if able to get patient off vent. CM/SS informed Fara that the hospital's inpatient rehab unit is following with patient. Fara verbalized understanding. CM/SS expressed concern for patient's son well being due to possible covid infection and a lack of contact/phone number for son. CINDY Peck contacted [facility] to ask for a wellcheck. Awaiting call back.
--- NOTE | 2020-06-14 16:33 | NUR ---
[facility] PD contacted me back at this time. They gave Yusuf's phone number to me of [phone]. They are not sure if he will be calling me or not.
[2020-06-15] VITALS (29 sets, daily range): BP systolic 83–166; BP diastolic 52–84
[2020-06-15] MEDS: PROPOFOL DRIP (ICU) 100 ML IV SCH ×5 (01:12→20:17)
[2020-06-15] MEDS: RT-ALBUTEROL INHALER HFA (VENTOLIN HFA) 18 GM IH SCH ×6 (02:15→23:14)
[2020-06-15 03:01] LABS: ABG BASE EXCESS -0.8 MMOL/L (-2.5-2.5); ABG OXYGEN SATURATION 94 % (94-100); ABG PCO2 39 MMHG (35-45); ABG PH 7.39 (7.37-7.43); ABG PO2 71 MMHG (79-93); ABG TCO2 24.8 MMOL/L (21.0-31.0); BASOPHILS % (AUTO) 1 % (0-10); EOSINOPHILS # (AUTO) 0.1 10^3/uL (0.0-0.3); EOSINOPHILS % (AUTO) 2 % (0-10); HEMATOCRIT 32 % (35-52); HEMOGLOBIN 10.2 g/dL (11.5-16.0); LYMPHOCYTES # (AUTO) 0.7 10^3/uL (1.0-4.0); LYMPHOCYTES % (AUTO) 14 % (12-44); MEAN CORPUSCULAR HEMOGLOBIN 27 pg (25-34); MEAN CORPUSCULAR HGB CONC 32 g/dL (32-36); MEAN CORPUSCULAR VOLUME 86 fL (80-99); MEAN PLATELET VOLUME 10.4 fL (9.0-12.2); MONOCYTES # (AUTO) 0.3 10^3/uL (0.0-1.0); MONOCYTES % (AUTO) 6 % (0-12); NEUTROPHILS # (AUTO) 3.6 10^3/uL (1.8-7.8); NEUTROPHILS % (AUTO) 72 % (42-75); PLATELET COUNT 250 10^3/uL (130-400)
[2020-06-15 03:02] LABS: ALLENS TEST YES-POS; INSPIRED O2 40%; PATIENT TEMP 36.6; VENTILATOR YES
[2020-06-15 03:20] LABS: CHLORIDE 110 MMOL/L (98-107); POTASSIUM 3.8 MMOL/L (3.6-5.0); SODIUM 142 MMOL/L (135-145)
[2020-06-15 03:22] LABS: CALCIUM 7.8 MG/DL (8.5-10.1); GLUCOSE 122 MG/DL (70-105); TRIGLYCERIDES 223 MG/DL (<150)
[2020-06-15 03:24] LABS: CARBON DIOXIDE 21 MMOL/L (21-32)
[2020-06-15 03:26] LABS: CREATININE SERUM 0.68 MG/DL (0.60-1.30); GFR ESTIMATED > 60; PHOSPHORUS 2.7 MG/DL (2.3-4.7)
[2020-06-15 03:27] LABS: BUN/CREATININE RATIO 21
[2020-06-15] MEDS ORDERED: NS (IVPB) 250 ML ONE (04:43)
[2020-06-15] MEDS ORDERED: PHENYLEPHRINE INJ 10 MG/ML (FOR DRIP KITS ONLY) ONE ×2 (04:43)
[2020-06-15] MEDS ORDERED: LORazepam INJ 2 MG/ML (ATIVAN) VIAL IVP ONE (04:45)
[2020-06-15] MEDS: ARTIFICIAL TEARS OINT (LACRI-LUBE) 3.5 GM TUBE OU SCH ×9 (04:57→23:09)
[2020-06-15] MEDS: MAGNESIUM 1 GM/100 ML IVPB 100 ML IV SCH (04:58)
[2020-06-15] MEDS: POTASSIUM CL 10MEQ/50ML IVPB 50 ML IV SCH (04:58)
[2020-06-15] MEDS: KCL 20 MEQ TAB (K-DUR) PO SCH (04:58)
[2020-06-15] MEDS ORDERED: ROCURONIUM 10 MG/ML 5 ML SYRINGE IV ONE ×2 (05:00→07:15)
[2020-06-15] MEDS ORDERED: PHENYLEPHRINE INJECTION 10 MG in NS (IVPB) 250 ML IV SCH (05:15)
--- NOTE | 2020-06-15 05:31 | Pulmonary Progress Note ---
Subjective Time Seen by a Provider: 05:30 Subjective/Events-last exam Pt is sedated on vent. Sepsis Event Evaluation Height, Weight, BMI Height: '" Weight: lbs. oz. kg; 30.00 BMI Method: Focused Exam Lactate Level 06/13/20 06:15: Lactic Acid Level 0.86 Time of Focused Exam: 20:35 Exam Exam Vital Signs Date Time Temp Pulse Resp B/P (MAP) Pulse Ox O2 Delivery O2 Flow Rate FiO2 06/15/20 03:00 92 25 133/84 (100) 98 Mechanical Ventilator 40.00 06/15/20 02:16 89 26 92 40 06/15/20 02:00 76 25 109/60 (76) 95 Mechanical Ventilator 40.00 06/15/20 01:12 78 114/61 06/15/20 01:12 78 114/61 06/15/20 01:00 75 26 111/63 (79) 93 Mechanical Ventilator 40.00 06/15/20 01:00 80 06/15/20 00:00 73 25 110/62 (78) 93 Mechanical Ventilator 40.00 06/14/20 23:46 36.6 06/14/20 23:00 78 25 114/61 (78) 96 Mechanical Ventilator 40.00 06/14/20 22:00 80 26 110/58 (75) 94 Mechanical Ventilator 40.00 06/14/20 21:57 80 26 94 40 06/14/20 21:00 88 23 121/67 (85) 96 Mechanical Ventilator 40.00 06/14/20 21:00 95 Mechanical Ventilator 60 06/14/20 20:09 80 26 99 60 06/14/20 20:00 Mechanical Ventilator 40.00 06/14/20 20:00 77 25 110/57 (74) 96 Mechanical Ventilator 40.00 06/14/20 20:00 36.4 06/14/20 19:00 82 25 111/59 (76) 95 Mechanical Ventilator 60.00 06/14/20 19:00 81 06/14/20 18:00 87 26 105/53 (70) 96 Mechanical Ventilator 60.00 06/14/20 17:39 85 128/67 06/14/20 17:38 85 128/67 06/14/20 17:00 86 27 114/57 (76) 94 Mechanical Ventilator 60.00 06/14/20 16:05 Mechanical Ventilator 40.00 06/14/20 16:00 85 13 128/67 (87) 98 Mechanical Ventilator 60.00 06/14/20 15:55 81 26 100 60 06/14/20 15:42 37.6 06/14/20 15:00 89 25 94/52 (66) 97 Mechanical Ventilator 60.00 06/14/20 14:00 85 27 94/52 (66) 96 Mechanical Ventilator 60.00 06/14/20 13:00 93 26 102/52 (69) 95 Mechanical Ventilator 60.00 06/14/20 12:10 Mechanical Ventilator 60.00 06/14/20 12:01 38.1 06/14/20 12:01 95 06/14/20 12:00 94 28 93/54 (67) 90 Mechanical Ventilator 85.00 06/14/20 11:00 100 25 98/60 (73) 98 Mechanical Ventilator 85.00 06/14/20 10:07 Mechanical Ventilator 85.00 06/14/20 10:00 98 24 111/64 (80) 94 Mechanical Ventilator 100.00 06/14/20 10:00 104 144/70 06/14/20 10:00 104 144/70 06/14/20 09:00 95 Mechanical Ventilator 100 06/14/20 09:00 104 25 144/70 (94) 97 Mechanical Ventilator 100.00 06/14/20 08:48 84 28 91 85 06/14/20 08:27 Mechanical Ventilator 100.00 06/14/20 08:27 37.7 06/14/20 08:22 Mechanical Ventilator 100.00 06/14/20 08:00 86 27 162/69 (100) 86 Mechanical Ventilator 45.00 06/14/20 07:00 89 25 121/58 (79) 97 Mechanical Ventilator 45.00 06/14/20 06:00 84 26 118/58 (78) 96 Mechanical Ventilator 45.00 l I & O 06/15/20 07:00 Intake Total 2720 ml Output Total 4010 ml Balance -1290 ml Height & Weight Height: '" Weight: lbs. oz. kg; 30.00 BMI Method: General Appearance: WD/WN, Chronically ill, Other (intubated and sedated) HEENT: PERRL/EOMI, Other (Very dry oral mucosa noted) Neck: Full Range of Motion Respiratory: Crackles, Decreased Breath Sounds Cardiovascular: Regular Rate, Rhythm Capillary Refill: Less Than 3 Seconds Peripheral Pulses: 2+ Radial Pulses (R), 2+ Radial Pulses (L) Extremity: Normal Inspection, Normal Range of Motion, Non Tender, No Calf Ten derness Neurologic/Psychiatric: Oriented x3, No Motor/Sensory Deficits, Normal Mood/Affect Skin: Normal Color, Warm/Dry Results Lab Laboratory Tests 06/14/20 02:50 06/15/20 02:48 Assessment/Plan Assessment/Plan Acute respiratory failure secondary to COVID 19 -Intubated 06/09 -Continue ventilator care. -Continue proning patient -Currently on Propofol, Fentanyl, and Nimbex COVID 19- PNA -Remdesivir 06/08 -Monitor LFTs with daily CMPs -Zosyn-- change to Merrem secondary to new onset fevers and copious amounts of sputum. -May need to add Vanco -Start Mucomyst per ET tube with albuterol txs secondary to mucous plugging -Mucinex -CVP -Currently requiring Vapotherm at 85% -Continue Decadron 6mg IV -Start theraputic dose lovenox secondary to elevated DDImer -CTA of chest - nondiagnostic for PE secondary to poor timing -Check PCT, and BNP Hypotension - Elevated LFTs with elevated Bili -Check Abd US HOWARD YOU DO Jun 15, 2020 05:31
[2020-06-15] MEDS: fentaNYL 1,250 MCG/NS 250 ML DRIP IV SCH ×3 (05:50→20:28)
[2020-06-15] MEDS: PIPERACILLIN/TAZOBACTAM (BULK) 4.5 GM in NS (IVPB) 100 ML IV SCH (06:40)
[2020-06-15] MEDS ORDERED: ROCURONIUM 50 MG/5 ML (ZEMURON) VIAL IV ONE (07:30)
--- NOTE | 2020-06-15 07:49 | Physical Therapy Progress Note ---
Therapy Progress Note Patient remains sedated and intubated. PT will continue to follow. FLORES TANG PT Jun 15, 2020 07:49
[2020-06-15] MEDS: ACETAMINOPHEN 325 MG TABLET PO PRN (07:53)
--- NOTE | 2020-06-15 08:03 | Diagnostic Imaging Report ---
EXAMINATION: Chest 1 view HISTORY: COVID positive. COMPARISON: 06/14/2020. FINDINGS: Support devices are stable in configuration. There is worsening consolidative patchy opacities throughout both lungs. No large pleural effusion or pneumothorax. Stable cardiac silhouette. IMPRESSION: 1. Worsening consolidative patchy opacities throughout both lungs. 2. Stable support devices. Dictated by: Dictated on workstation # [id number]
--- NOTE | 2020-06-15 08:07 | NUR ---
PTS O2 SATS IN MID 80S DESPITE DEEP SUCTIONING, PEEP INCREASED TO [address]. O2 SATS INCREASED TO 91%.
--- NOTE | 2020-06-15 08:07 | Occ Therapy Progress Note ---
Therapy Progress Note Pt remains intubated/ sedated. OT to continue to monitor and initiate tx when medically stable/ able to participate in skilled therapy tx. PIERRE HERNÁNDEZ OTR Jun 15, 2020 08:07
[2020-06-15] MEDS ORDERED: MEROPENEM 1,000 MG in WATER (STERILE) FOR INJECTION 20 ML IV SCH (08:15)
[2020-06-15] MEDS: CISATRACURIUM INJECTION 100 MG in NS (IVPB) 200 ML IV SCH ×5 (08:56→23:09)
[2020-06-15] MEDS: PANTOPRAZOLE 40 MG (PROTONIX) VIAL IV SCH (09:04)
[2020-06-15] MEDS: ENOXAPARIN 300 MG/3 ML (LOVENOX) MULTI-DOSE VIAL SQ SCH ×2 (09:05→20:16)
[2020-06-15] MEDS: MEROPENEM 500 MG/SWFI 10 ML IV PUSH IV SCH ×6 (09:05→20:13)
[2020-06-15] MEDS: aCETylcysteine 20% (MUCOMYST) 30ML SOLN VIAL ONE (11:10)
[2020-06-15] MEDS: guaiFENesin SYRUP 100 MG/5 ML 10 ML (ROBITUSSIN SF) PO SCH ×2 (11:20→20:13)
--- NOTE | 2020-06-15 13:13 | NUR ---
During care rounds, it was noted that pt is receiving TF of Pulmocare at rate of 15ml/hr with flushes of 25ml water q4h. Note pt has BMI of 47.9, per chart review. Needs based on 25 kcal/kg IBW of 54.5 kg (120#). Would recommend conservative increases of 10ml q12h to goal rate of 40ml/hr. At goal rate, provides 1440 kcal (26 kcal/kg IBW); 60 g Pro (1.1 g Pro/kg IBW); and 904ml free water (with flushes). Will continue to follow and reassess as pt needs, intake, and status change. Nivia Murphy, MS RD LD
--- NOTE | 2020-06-15 13:27 | Physical Therapy Progress Note ---
Therapy Progress Note provided PROM to (B) UEs and LEs with patient positioned in supine. BELLA OROZCO PT Jun 15, 2020 13:27
[2020-06-15] MEDS: aCETylcysteine 20% (MUCOMYST) 30ML SOLN VIAL INH SCH ×3 (14:28→23:14)
[2020-06-16] VITALS (29 sets, daily range): BP systolic 101–142; BP diastolic 55–80
[2020-06-16] MEDS: MEROPENEM 500 MG/SWFI 10 ML IV PUSH IV SCH ×8 (02:09→19:54)
[2020-06-16] MEDS: PROPOFOL DRIP (ICU) 100 ML IV SCH ×7 (02:09→23:10)
[2020-06-16] MEDS: CISATRACURIUM INJECTION 100 MG in NS (IVPB) 200 ML IV SCH ×5 (02:10→21:26)
[2020-06-16] MEDS: ARTIFICIAL TEARS OINT (LACRI-LUBE) 3.5 GM TUBE OU SCH ×8 (02:13→19:54)
[2020-06-16 03:03] LABS: BASOPHILS % (AUTO) 0 % (0-10); EOSINOPHILS # (AUTO) 0.1 10^3/uL (0.0-0.3); EOSINOPHILS % (AUTO) 1 % (0-10); HEMATOCRIT 30 % (35-52); HEMOGLOBIN 9.4 g/dL (11.5-16.0); LYMPHOCYTES # (AUTO) 0.6 10^3/uL (1.0-4.0); LYMPHOCYTES % (AUTO) 9 % (12-44); MEAN CORPUSCULAR HEMOGLOBIN 27 pg (25-34); MEAN CORPUSCULAR HGB CONC 31 g/dL (32-36); MEAN CORPUSCULAR VOLUME 88 fL (80-99); MEAN PLATELET VOLUME 10.3 fL (9.0-12.2); MONOCYTES # (AUTO) 0.3 10^3/uL (0.0-1.0); MONOCYTES % (AUTO) 5 % (0-12); NEUTROPHILS # (AUTO) 5.1 10^3/uL (1.8-7.8); NEUTROPHILS % (AUTO) 80 % (42-75); PLATELET COUNT 225 10^3/uL (130-400); WHITE BLOOD COUNT 6.4 10^3/uL (4.3-11.0)
[2020-06-16 03:16] LABS: CHLORIDE 110 MMOL/L (98-107); SODIUM 143 MMOL/L (135-145)
[2020-06-16 03:17] LABS: CALCIUM 7.6 MG/DL (8.5-10.1)
[2020-06-16] MEDS: RT-ALBUTEROL INHALER HFA (VENTOLIN HFA) 18 GM IH SCH ×6 (03:17→22:47)
[2020-06-16] MEDS: aCETylcysteine 20% (MUCOMYST) 30ML SOLN VIAL ONE (03:17)
[2020-06-16 03:18] LABS: GLUCOSE 106 MG/DL (70-105); TRIGLYCERIDES 195 MG/DL (<150)
[2020-06-16 03:19] LABS: CARBON DIOXIDE 23 MMOL/L (21-32)
[2020-06-16 03:22] LABS: CREATININE SERUM 0.63 MG/DL (0.60-1.30); GFR ESTIMATED > 60; PHOSPHORUS 2.6 MG/DL (2.3-4.7)
[2020-06-16 03:23] LABS: BUN/CREATININE RATIO 19
[2020-06-16 04:03] LABS: ABG OXYGEN SATURATION 96 % (94-100); ABG PCO2 49 MMHG (35-45); ABG PO2 90 MMHG (79-93); ABG TCO2 26.6 MMOL/L (21.0-31.0)
[2020-06-16 04:04] LABS: ALLENS TEST YES-POS; INSPIRED O2 70%; PATIENT TEMP 37.2; VENTILATOR YES
[2020-06-16 04:05] LABS: ABG PH 7.35 (7.37-7.43)
[2020-06-16] MEDS: KCL 20 MEQ TAB (K-DUR) PO SCH (04:21)
[2020-06-16] MEDS: POTASSIUM CL 10MEQ/50ML IVPB 50 ML IV SCH (04:21)
[2020-06-16] MEDS: MAGNESIUM 1 GM/100 ML IVPB 100 ML IV SCH (04:21)
[2020-06-16] MEDS: LACTATED RINGERS 1,000 ML IV SCH (05:50)
[2020-06-16] MEDS: fentaNYL 1,250 MCG/NS 250 ML DRIP IV SCH ×3 (05:50→21:26)
--- NOTE | 2020-06-16 07:05 | Physical Therapy Progress Note ---
Therapy Progress Note Patient remains sedated and intubated. PT will continue to follow. FLORES TANG PT Jun 16, 2020 07:05
--- NOTE | 2020-06-16 07:46 | Pulmonary Progress Note ---
Subjective Time Seen by a Provider: 07:39 Subjective/Events-last exam Pt is sedated on vent. Sepsis Event Evaluation Height, Weight, BMI Height: '" Weight: lbs. oz. kg; 30.00 BMI Method: Focused Exam Time of Focused Exam: 20:35 Exam Exam Vital Signs Date Time Temp Pulse Resp B/P (MAP) Pulse Ox O2 Delivery O2 Flow Rate FiO2 06/16/20 07:36 37.0 06/16/20 06:00 98 25 102/63 (76) 97 Mechanical Ventilator 70.00 06/16/20 05:00 90 25 101/58 (72) 97 Mechanical Ventilator 70.00 06/16/20 04:00 90 25 104/58 (73) 96 Mechanical Ventilator 70.00 06/16/20 03:18 96 26 96 60 06/16/20 03:00 96 25 105/55 (72) 96 Mechanical Ventilator 70.00 06/16/20 02:10 104/59 06/16/20 02:09 104/59 06/16/20 02:00 97 25 110/64 (79) 96 Mechanical Ventilator 70.00 06/16/20 01:00 93 26 116/66 (83) 98 Mechanical Ventilator 70.00 06/16/20 01:00 100 06/16/20 00:00 98 25 108/62 (77) 96 Mechanical Ventilator 70.00 06/15/20 23:15 92 26 95 60 06/15/20 23:07 37.7 Mechanical Ventilator 70.00 06/15/20 23:00 92 26 101/54 (70) 97 Mechanical Ventilator 70.00 06/15/20 22:00 93 25 115/61 (79) 97 Mechanical Ventilator 70.00 06/15/20 21:00 98 26 113/64 (80) 97 Mechanical Ventilator 70.00 06/15/20 20:26 95 Mechanical Ventilator 70 06/15/20 20:24 37.6 Mechanical Ventilator 70.00 06/15/20 20:17 116/61 06/15/20 20:17 116/61 06/15/20 20:00 93 26 116/61 (79) 98 Mechanical Ventilator 80.00 06/15/20 20:00 37.8 06/15/20 19:00 92 20 111/60 (77) 98 Mechanical Ventilator 80.00 06/15/20 19:00 91 06/15/20 18:55 112 26 98 100 06/15/20 18:00 93 26 116/66 (83) 98 Mechanical Ventilator 80.00 06/15/20 17:56 Mechanical Ventilator 80.00 06/15/20 17:00 90 26 118/67 (84) 99 Mechanical Ventilator 100.00 06/15/20 16:00 36.8 06/15/20 16:00 92 25 107/65 (79) 99 Mechanical Ventilator 100.00 06/15/20 15:00 96 25 109/64 (79) 99 Mechanical Ventilator 100.00 06/15/20 14:28 96 26 98 100 06/15/20 14:00 101 25 103/65 (78) 97 Mechanical Ventilator 100.00 06/15/20 13:33 101 101/62 06/15/20 13:33 101 101/62 06/15/20 13:00 101 26 101/62 (75) 98 Mechanical Ventilator 100.00 06/15/20 12:49 101 06/15/20 12:00 103 25 100/64 (76) 97 Mechanical Ventilator 100.00 06/15/20 11:19 37.6 06/15/20 11:10 105 26 96 100 06/15/20 11:00 105 26 97/55 (69) 95 Mechanical Ventilator 100.00 06/15/20 10:00 109 25 96/52 (67) 95 Mechanical Ventilator 100.00 06/15/20 09:00 108 22 83/53 (63) 92 Mechanical Ventilator 100.00 06/15/20 09:00 91 Mechanical Ventilator 100 06/15/20 08:55 37.4 06/15/20 08:55 37.4 06/15/20 08:00 112 21 104/58 (73) 92 Mechanical Ventilator 100.00 06/15/20 07:53 38.3 06/15/20 07:49 38.3 I & O 06/16/20 07:00 Intake Total 1515 ml Output Total 825 ml Balance 690 ml Height & Weight Height: '" Weight: lbs. oz. kg; 30.00 BMI Method: General Appearance: WD/WN, Chronically ill, Other (intubated and sedated) HEENT: PERRL/EOMI, Other (Very dry oral mucosa noted) Neck: Full Range of Motion Respiratory: Crackles, Decreased Breath Sounds Cardiovascular: Regular Rate, Rhythm Capillary Refill: Less Than 3 Seconds Peripheral Pulses: 2+ Radial Pulses (R), 2+ Radial Pulses (L) Extremity: Normal Inspection, Normal Range of Motion, Non Tender, No Calf Tenderness Neurologic/Psychiatric: Oriented x3, No Motor/Sensory Deficits, Normal Mood/Affect Skin: Normal Color, Warm/Dry Results Lab Laboratory Tests 06/15/20 02:48 06/16/20 02:45 Assessment/Plan Assessment/Plan Acute respiratory failure secondary to COVID 19 -Intubated 06/09 -Continue ventilator care. -Continue proning patient -Currently on Propofol, Fentanyl, and Nimbex COVID 19- PNA -Remdesivir 06/08 -Monitor LFTs with daily CMPs - Zosyn changed to Merrem 06/15 -SMucomyst per ET tube with albuterol txs secondary to mucous plugging -Mucinex -CVP -Currently requiring Vapotherm at 85% -Continue Decadron 6mg IV -Start theraputic dose lovenox secondary to elevated DDImer -CTA of chest - nondiagnostic for PE secondary to poor timing -Check PCT, and BNP Hypotension - Elevated LFTs with elevated Bili -Check Abd US HOWARD YOU DO Jun 16, 2020 07:46
[2020-06-16] MEDS: aCETylcysteine 20% (MUCOMYST) 30ML SOLN VIAL INH SCH ×5 (07:49→22:48)
[2020-06-16] MEDS: ENOXAPARIN 300 MG/3 ML (LOVENOX) MULTI-DOSE VIAL SQ SCH ×2 (08:08→19:54)
[2020-06-16] MEDS: guaiFENesin SYRUP 100 MG/5 ML 10 ML (ROBITUSSIN SF) PO SCH ×2 (08:08→19:54)
[2020-06-16] MEDS: PANTOPRAZOLE 40 MG (PROTONIX) VIAL IV SCH (08:09)
--- NOTE | 2020-06-16 08:12 | Diagnostic Imaging Report ---
INDICATION: COVID positive. EXAMINATION: Chest 06/16/2020. COMPARISON: 06/15/2020 FINDINGS: There is a feeding tube with the tip in the left upper quadrant. A right jugular line is stable ET tube stable. Diffuse airspace opacity seen throughout both lungs with better aeration in the right upper lung and mid lung. Heart and pulmonary vasculature stable. IMPRESSION: 1. Diffuse bilateral consolidation slightly improved in the right mid and upper lung. Dictated by: Dictated on workstation # [id number]
[2020-06-16] MEDS: LORazepam INJ 2 MG/ML (ATIVAN) VIAL IV PRN (18:09)
[2020-06-16] MEDS: fentaNYL INJECTION 100 MCG/2 ML AMP IVP PRN (18:15)
--- NOTE | 2020-06-16 18:15 | NUR ---
1809 PT'S HEART RATE NOTED AT 176 THIS RN INTO ROOM AND EICU CALLED. WHILE WAITING FOR E-ICU DR. EATON 2MG IVP GIVEN ALONG WITH FENTANYL IVP 25MG. E-ICU DR MONTANO CAMERA IN AND ORDERS RECEIVED TO GIVE PT ANOTHER 10-15 MINUTES AND IF HEART RATE CONTINUES TO BE ELEVATED CALL E-ICU BACK. CASSIE RN IN ROOM ALONG WITH Delphine CONNOR RN. Addendum: 06/16/20 at 1835 by MARGUERITE CHUN RN THE DR CASSIE WHITE SPOKE WITH WAS DR GORDON
--- NOTE | 2020-06-16 18:26 | NUR ---
DR FAIR NOTIFIED THAT PT'S HEART RATE CONTINUES TO SUSTAIN IN THE 170, ADENOSINE GIVEN 6 MG IVP, WITH DR FAIR CAMERA IN ROOM. HEART RATE NOW NOTED AT 99 ORDERS RECEIVED TO OBTAIN STAT CMP, MAG. CASSIE WHITE ALONG WITH Delphine CONNOR RN REMAIN IN ROOM. BP NOTED AT 130/78 Addendum: 06/16/20 at 1835 by MARGUERITE CHUN RN THE DR CASSIE WHITE SPOKE WITH WAS DR GORDON
[2020-06-16] MEDS ORDERED: ADENOSINE 6 MG/2 ML (ADENOCARD) VIAL IV ONE (18:30)
[2020-06-16 18:55] LABS: ALBUMIN 2.1 GM/DL (3.2-4.5); CHLORIDE 109 MMOL/L (98-107); SODIUM 140 MMOL/L (135-145)
[2020-06-16 18:56] LABS: CALCIUM 7.8 MG/DL (8.5-10.1)
[2020-06-16 18:57] LABS: GLUCOSE 112 MG/DL (70-105)
[2020-06-16 18:58] LABS: TOTAL PROTEIN 5.1 GM/DL (6.4-8.2)
[2020-06-16 18:59] LABS: BILIRUBIN,TOTAL 1.2 MG/DL (0.1-1.0); CARBON DIOXIDE 23 MMOL/L (21-32)
[2020-06-16 19:01] LABS: ALKALINE PHOSPHATASE 60 U/L (40-136); GFR ESTIMATED > 60
[2020-06-16 19:02] LABS: BUN/CREATININE RATIO 22
[2020-06-16 19:04] LABS: ALANINE AMINOTRANSFERASE 47 U/L (0-55); MAGNESIUM 2.1 MG/DL (1.6-2.4)
[2020-06-17] VITALS (30 sets, daily range): BP systolic 90–139; BP diastolic 55–78
[2020-06-17] MEDS: ARTIFICIAL TEARS OINT (LACRI-LUBE) 3.5 GM TUBE OU SCH ×8 (00:19→20:20)
[2020-06-17] MEDS: MEROPENEM 500 MG/SWFI 10 ML IV PUSH IV SCH ×8 (01:56→20:19)
[2020-06-17 02:36] LABS: BASOPHILS % (AUTO) 0 % (0-10); EOSINOPHILS # (AUTO) 0.1 10^3/uL (0.0-0.3); EOSINOPHILS % (AUTO) 2 % (0-10); HEMATOCRIT 31 % (35-52); HEMOGLOBIN 9.3 g/dL (11.5-16.0); LYMPHOCYTES # (AUTO) 0.8 10^3/uL (1.0-4.0); LYMPHOCYTES % (AUTO) 14 % (12-44); MEAN CORPUSCULAR HEMOGLOBIN 27 pg (25-34); MEAN CORPUSCULAR HGB CONC 30 g/dL (32-36); MEAN CORPUSCULAR VOLUME 88 fL (80-99); MEAN PLATELET VOLUME 11.2 fL (9.0-12.2); MONOCYTES # (AUTO) 0.3 10^3/uL (0.0-1.0); MONOCYTES % (AUTO) 6 % (0-12); NEUTROPHILS # (AUTO) 3.9 10^3/uL (1.8-7.8); NEUTROPHILS % (AUTO) 71 % (42-75); PLATELET COUNT 226 10^3/uL (130-400); WHITE BLOOD COUNT 5.5 10^3/uL (4.3-11.0)
[2020-06-17 02:45] LABS: CHLORIDE 108 MMOL/L (98-107); POTASSIUM 3.8 MMOL/L (3.6-5.0); SODIUM 140 MMOL/L (135-145)
[2020-06-17 02:46] LABS: CALCIUM 7.6 MG/DL (8.5-10.1)
[2020-06-17 02:47] LABS: GLUCOSE 94 MG/DL (70-105)
[2020-06-17 02:48] LABS: CARBON DIOXIDE 24 MMOL/L (21-32)
[2020-06-17 02:50] LABS: PHOSPHORUS 1.7 MG/DL (2.3-4.7)
[2020-06-17 02:51] LABS: CREATININE SERUM 0.57 MG/DL (0.60-1.30); GFR ESTIMATED > 60
[2020-06-17 02:52] LABS: BUN/CREATININE RATIO 19
[2020-06-17] MEDS: aCETylcysteine 20% (MUCOMYST) 30ML SOLN VIAL INH SCH ×6 (02:52→22:50)
[2020-06-17] MEDS: RT-ALBUTEROL INHALER HFA (VENTOLIN HFA) 18 GM IH SCH ×6 (02:52→22:49)
[2020-06-17] MEDS: KCL 20 MEQ TAB (K-DUR) PO SCH (03:21)
[2020-06-17] MEDS: POTASSIUM CL 10MEQ/50ML IVPB 50 ML IV SCH (03:21)
[2020-06-17] MEDS: MAGNESIUM 1 GM/100 ML IVPB 100 ML IV SCH (03:21)
[2020-06-17 03:28] LABS: ABG BASE EXCESS 0.8 MMOL/L (-2.5-2.5); ABG OXYGEN SATURATION 97 % (94-100); ABG PCO2 46 MMHG (35-45); ABG PH 7.37 (7.37-7.43); ABG PO2 86 MMHG (79-93); ABG TCO2 26.9 MMOL/L (21.0-31.0)
[2020-06-17 03:29] LABS: ALLENS TEST YES-POS; INSPIRED O2 70%; VENTILATOR YES
[2020-06-17] MEDS: PROPOFOL DRIP (ICU) 100 ML IV SCH ×4 (03:53→22:03)
[2020-06-17] MEDS: fentaNYL 1,250 MCG/NS 250 ML DRIP IV SCH ×3 (03:54→23:38)
[2020-06-17] MEDS ORDERED: FUROSEMIDE 40 MG/4 ML INJ (LASIX) IVP ONE (04:45)
--- NOTE | 2020-06-17 04:52 | Pulmonary Progress Note ---
Subjective Time Seen by a Provider: 04:51 Subjective/Events-last exam Pt is sedated on vent. Sepsis Event Evaluation Height, Weight, BMI Height: '" Weight: lbs. oz. kg; 30.00 BMI Method: Focused Exam Time of Focused Exam: 20:35 Exam Exam Vital Signs Date Time Temp Pulse Resp B/P (MAP) Pulse Ox O2 Delivery O2 Flow Rate FiO2 06/17/20 04:02 37.1 Mechanical Ventilator 60.00 06/17/20 03:53 103/72 06/17/20 03:53 103/72 06/17/20 03:09 Mechanical Ventilator 70.00 06/17/20 03:00 Mechanical Ventilator 70.00 06/17/20 03:00 93 26 118/73 (88) 97 Mechanical Ventilator 70.00 06/17/20 02:52 90 26 98 80 06/17/20 02:00 87 26 113/72 (86) 98 Mechanical Ventilator 80.00 06/17/20 01:00 89 25 118/75 (89) 99 Mechanical Ventilator 80.00 06/17/20 01:00 92 06/17/20 00:00 96 25 122/77 (92) 98 Mechanical Ventilator 80.00 06/16/20 23:11 37.2 06/16/20 23:10 112/69 06/16/20 23:09 112/69 06/16/20 23:00 92 25 108/71 (83) 97 Mechanical Ventilator 80.00 06/16/20 22:53 Mechanical Ventilator 80.00 06/16/20 22:48 90 26 98 80 06/16/20 22:00 92 26 112/72 (85) 99 Mechanical Ventilator 90.00 06/16/20 21:18 Mechanical Ventilator 90.00 06/16/20 21:00 97 25 116/74 (88) 100 Mechanical Ventilator 100.00 06/16/20 20:05 92 Mechanical Ventilator 100 06/16/20 20:00 100 25 110/68 (82) 100 Mechanical Ventilator 100.00 06/16/20 19:56 37.2 06/16/20 19:38 98 26 95 100 06/16/20 19:00 101 26 121/73 (89) 95 Mechanical Ventilator 100.00 06/16/20 19:00 101 06/16/20 18:00 96 25 142/80 (100) 95 Mechanical Ventilator 100.00 06/16/20 18:00 96 119/76 06/16/20 17:59 96 119/76 06/16/20 17:00 93 25 142/80 (100) 93 Mechanical Ventilator 100.00 06/16/20 16:00 91 25 127/70 (89) 95 Mechanical Ventilator 100.00 06/16/20 15:00 89 26 129/75 (93) 95 Mechanical Ventilator 100.00 06/16/20 14:42 80 26 90 100 06/16/20 14:00 89 26 104/66 (79) 97 Mechanical Ventilator 100.00 06/16/20 13:00 92 14 102/64 (77) 99 Mechanical Ventilator 100.00 06/16/20 12:59 90 06/16/20 12:00 89 11 104/62 (76) 99 Mechanical Ventilator 100.00 06/16/20 11:28 37.2 06/16/20 11:04 85 26 99 100 06/16/20 11:00 85 21 109/63 (78) 99 Mechanical Ventilator 100.00 06/16/20 10:00 90 11 104/63 (77) 99 Mechanical Ventilator 100.00 06/16/20 09:04 94 98/57 06/16/20 09:00 96 14 108/67 (81) 96 Mechanical Ventilator 100.00 06/16/20 08:35 92 Mechanical Ventilator 100 06/16/20 08:00 79 28 103/60 (74) 93 Mechanical Ventilator 100.00 06/16/20 07:50 88 26 90 80 06/16/20 07:36 37.0 06/16/20 07:00 84 06/16/20 07:00 86 26 114/65 (81) 97 Mechanical Ventilator 70.00 06/16/20 06:00 98 25 102/63 (76) 97 Mechanical Ventilator 70.00 06/16/20 05:00 90 25 101/58 (72) 97 Mechanical Ventilator 70.00 I & O 06/17/20 07:00 Intake Total 2075 ml Output Total 840 ml Balance 1235 ml Height & Weight Height: '" Weight: lbs. oz. kg; 30.00 BMI Method: General Appearance: WD/WN, Chronically ill, Other (intubated and sedated) HEENT: PERRL/EOMI, Other (Very dry oral mucosa noted) Neck: Full Range of Motion Respiratory: Crackles, Decreased Breath Sounds Cardiovascular: Regular Rate, Rhythm Capillary Refill: Less Than 3 Seconds Peripheral Pulses: 2+ Radial Pulses (R), 2+ Radial Pulses (L) Extremity: Normal Inspection, Normal Range of Motion, Non Tender, No Calf Tenderness Neurologic/Psychiatric: Oriented x3, No Motor/Sensory Deficits, Normal Mood/Affect Skin: Normal Color, Warm/Dry Results Lab Laboratory Tests 06/16/20 02:45 06/16/20 18:30 06/17/20 01:50 Assessment/Plan Assessment/Plan Acute respiratory failure secondary to COVID 19 -Intubated 06/09 -Decrease PEEP to 18 -Continue ventilator care. -Continue proning patient -Currently on Propofol, Fentanyl, and Nimbex COVID 19- PNA -Remdesivir 06/08 -Monitor LFTs with daily CMPs - Zosyn changed to Merrem 06/15 -Mucomyst per ET tube with albuterol txs secondary to mucous plugging -Mucinex -CVP -Currently requiring Vapotherm at 85% -Continue Decadron 6mg IV -Start theraputic dose lovenox secondary to elevated DDImer -CTA of chest - nondiagnostic for PE secondary to poor timing -Check PCT, and BNP Hypotension - Elevated LFTs with elevated Bili -Check Abd US HOWARD YOU DO Jun 17, 2020 04:52
[2020-06-17] MEDS: LACTATED RINGERS 1,000 ML IV SCH ×2 (05:07→14:39)
[2020-06-17] MEDS ORDERED: POTASSIUM PHOSPHATE INJ 30 MM in NS (IVPB) 250 ML IV ONE (08:00)
--- NOTE | 2020-06-17 08:45 | Diagnostic Imaging Report ---
INDICATION: On a ventilator. COVID positive. EXAMINATION: Chest 06/17/2020 COMPARISON: 06/16/2020 FINDINGS: Heart is stable pulmonary vasculature is mildly congested. There are increased interstitial and airspace opacities in both lungs similar to prior imaging on the right and slightly improved on the left. No effusions. No pneumothorax. Right jugular line tip is stable with an ET tube and a feeding tube grossly unremarkable. IMPRESSION: 1. Minimal improvement in appearance left lung. Remaining chest is stable. Dictated by: Dictated on workstation # [id number]
[2020-06-17] MEDS: PANTOPRAZOLE 40 MG (PROTONIX) VIAL IV SCH (09:07)
[2020-06-17] MEDS: guaiFENesin SYRUP 100 MG/5 ML 10 ML (ROBITUSSIN SF) PO SCH ×2 (09:08→20:19)
[2020-06-17] MEDS: ENOXAPARIN 300 MG/3 ML (LOVENOX) MULTI-DOSE VIAL SQ SCH ×2 (09:09→20:19)
[2020-06-18] VITALS (29 sets, daily range): BP systolic 90–126; BP diastolic 58–80
[2020-06-18] MEDS: MEROPENEM 500 MG/SWFI 10 ML IV PUSH IV SCH ×8 (02:15→21:15)
[2020-06-18 02:42] LABS: ABG BASE EXCESS 4.1 MMOL/L (-2.5-2.5); ABG OXYGEN SATURATION 67 % (94-100); ABG PCO2 49 MMHG (35-45); ABG PH 7.38 (7.37-7.43); ABG PO2 42 MMHG (79-93); ABG TCO2 30.4 MMOL/L (21.0-31.0)
[2020-06-18 02:43] LABS: BASOPHILS % (AUTO) 0 % (0-10); EOSINOPHILS # (AUTO) 0.1 10^3/uL (0.0-0.3); EOSINOPHILS % (AUTO) 2 % (0-10); HEMATOCRIT 29 % (35-52); HEMOGLOBIN 9.1 g/dL (11.5-16.0); LYMPHOCYTES # (AUTO) 0.8 10^3/uL (1.0-4.0); LYMPHOCYTES % (AUTO) 18 % (12-44); MEAN CORPUSCULAR HEMOGLOBIN 27 pg (25-34); MEAN CORPUSCULAR HGB CONC 31 g/dL (32-36); MEAN CORPUSCULAR VOLUME 88 fL (80-99); MEAN PLATELET VOLUME 11.1 fL (9.0-12.2); MONOCYTES # (AUTO) 0.2 10^3/uL (0.0-1.0); MONOCYTES % (AUTO) 5 % (0-12); NEUTROPHILS % (AUTO) 66 % (42-75); PLATELET COUNT 203 10^3/uL (130-400); WHITE BLOOD COUNT 4.5 10^3/uL (4.3-11.0)
[2020-06-18 02:44] LABS: ALLENS TEST YES-POS; PATIENT TEMP 36.6; VENTILATOR YES
[2020-06-18 02:55] LABS: CHLORIDE 106 MMOL/L (98-107); POTASSIUM 3.6 MMOL/L (3.6-5.0); SODIUM 140 MMOL/L (135-145)
[2020-06-18 02:56] LABS: CALCIUM 7.8 MG/DL (8.5-10.1)
[2020-06-18 02:57] LABS: GLUCOSE 103 MG/DL (70-105); TRIGLYCERIDES 232 MG/DL (<150)
[2020-06-18 02:58] LABS: CARBON DIOXIDE 26 MMOL/L (21-32)
[2020-06-18 03:00] LABS: PHOSPHORUS 2.3 MG/DL (2.3-4.7)
[2020-06-18 03:01] LABS: BUN/CREATININE RATIO 25; CREATININE SERUM 0.53 MG/DL (0.60-1.30); GFR ESTIMATED > 60
[2020-06-18] MEDS: RT-ALBUTEROL INHALER HFA (VENTOLIN HFA) 18 GM IH SCH ×6 (03:01→22:15)
[2020-06-18] MEDS: aCETylcysteine 20% (MUCOMYST) 30ML SOLN VIAL INH SCH (03:01)
[2020-06-18 03:03] LABS: MAGNESIUM 1.9 MG/DL (1.6-2.4)
[2020-06-18] MEDS: POTASSIUM CL 10MEQ/50ML IVPB 50 ML IV SCH ×7 (03:55→08:16)
--- NOTE | 2020-06-18 04:24 | Pulmonary Progress Note ---
Subjective Time Seen by a Provider: 04:23 Subjective/Events-last exam Pt is sedated on vent. Sepsis Event Evaluation Height, Weight, BMI Height: '" Weight: lbs. oz. kg; 30.00 BMI Method: Focused Exam Time of Focused Exam: 20:35 Exam Exam Vital Signs Date Time Temp Pulse Resp B/P (MAP) Pulse Ox O2 Delivery O2 Flow Rate FiO2 06/18/20 03:02 81 26 94 60 06/18/20 02:00 78 25 109/69 (82) 94 Mechanical Ventilator 55.00 06/18/20 01:00 78 25 110/72 (85) 93 Mechanical Ventilator 55.00 06/18/20 01:00 77 06/18/20 00:00 78 25 115/70 (85) 94 Mechanical Ventilator 55.00 06/17/20 23:18 Mechanical Ventilator 55.00 06/17/20 23:00 80 12 120/78 (92) 85 Mechanical Ventilator 70.00 06/17/20 22:50 74 26 95 60 06/17/20 22:03 76 117/67 06/17/20 22:03 76 117/67 06/17/20 22:00 76 25 110/67 (81) 95 Mechanical Ventilator 70.00 06/17/20 21:00 80 26 115/76 (89) 96 Mechanical Ventilator 70.00 06/17/20 20:57 96 Mechanical Ventilator 60 06/17/20 20:00 84 25 115/68 (84) 94 Mechanical Ventilator 70.00 06/17/20 19:59 37.0 06/17/20 19:27 88 27 94 60 06/17/20 19:00 91 22 113/72 (86) 93 Mechanical Ventilator 70.00 06/17/20 19:00 96 06/17/20 18:37 93 60.00 06/17/20 18:00 83 26 125/78 (94) 95 Mechanical Ventilator 70.00 06/17/20 17:00 84 26 116/64 (81) 96 Mechanical Ventilator 70.00 06/17/20 16:00 84 26 116/67 (83) 96 Mechanical Ventilator 70.00 06/17/20 15:39 86 118/66 06/17/20 15:39 86 118/66 06/17/20 15:34 97 70.00 06/17/20 15:00 87 25 118/66 (83) 97 Mechanical Ventilator 80.00 06/17/20 14:50 88 26 97 80 06/17/20 14:00 89 26 96/56 (69) 90 Mechanical Ventilator 80.00 06/17/20 13:00 94 25 96/55 (69) 90 Mechanical Ventilator 80.00 06/17/20 12:23 96 06/17/20 12:00 95 26 92/60 (71) 97 Mechanical Ventilator 80.00 06/17/20 11:30 37.2 06/17/20 11:00 90 34 101/63 (76) 94 Mechanical Ventilator 80.00 06/17/20 10:25 91 26 91 80 06/17/20 10:00 93 28 98/62 (74) 93 Mechanical Ventilator 80.00 06/17/20 09:48 89 135/80 06/17/20 09:48 89 135/80 06/17/20 09:00 103 25 101/65 (77) 95 Mechanical Ventilator 80.00 06/17/20 08:00 98 27 104/68 (80) 95 Mechanical Ventilator 80.00 06/17/20 07:51 94 80.00 06/17/20 07:41 90 Mechanical Ventilator 70 06/17/20 07:38 37.0 70.00 06/17/20 07:00 94 06/17/20 07:00 90 26 108/69 (82) 95 Mechanical Ventilator 60.00 06/17/20 06:55 88 26 94 60 06/17/20 06:00 94 26 120/77 (91) 97 Mechanical Ventilator 60.00 06/17/20 05:00 93 26 110/68 (82) 97 Mechanical Ventilator 60.00 I & O 06/18/20 07:00 Intake Total 2635 ml Output Total 2625 ml Balance 10 ml Height & Weight Height: '" Weight: lbs. oz. kg; 30.00 BMI Method: General Appearance: WD/WN, Chronically ill, Other (intubated and sedated) HEENT: PERRL/EOMI, Other (Very dry oral mucosa noted) Neck: Full Range of Motion Respiratory: Crackles, Decreased Breath Sounds Cardiovascular: Regular Rate, Rhythm Capillary Refill: Less Than 3 Seconds Peripheral Pulses: 2+ Radial Pulses (R), 2+ Radial Pulses (L) Extremity: Normal Inspection, Normal Range of Motion, Non Tender, No Calf Tenderness Neurologic/Psychiatric: Oriented x3, No Motor/Sensory Deficits, Normal Mood/Affect Skin: Normal Color, Warm/Dry Results Lab Laboratory Tests 06/16/20 18:30 06/17/20 01:50 06/18/20 02:30 Assessment/Plan Assessment/Plan Acute respiratory failure secondary to COVID 19 -Intubated 06/09 - PEEP to 20 -Continue ventilator care. -Continue proning patient -Currently on Propofol, Fentanyl, and Nimbex COVID 19- PNA -Remdesivir 06/08 -Monitor LFTs with daily CMPs - Zosyn changed to Merrem 06/15 -Mucomyst per ET tube with albuterol txs secondary to mucous plugging -Mucinex -CVP -Currently requiring Vapotherm at 85% -Continue Decadron 6mg IV -Increase Decadron to 20mg daily and give 40mg of IV Lasix x 1 -Start theraputic dose lovenox secondary to elevated DDImer -CTA of chest - nondiagnostic for PE secondary to poor timing -Check PCT, and BNP Hypotension - Elevated LFTs with elevated Bili -Check Abd HOWARD HOOKER DO Jun 18, 2020 04:24
[2020-06-18] MEDS ORDERED: FUROSEMIDE 40 MG/4 ML INJ (LASIX) ONE (04:25)
[2020-06-18] MEDS ORDERED: FUROSEMIDE 40 MG/4 ML INJ (LASIX) IVP ONE (04:30)
[2020-06-18] MEDS: PROPOFOL DRIP (ICU) 100 ML IV SCH ×7 (04:30→22:59)
[2020-06-18] MEDS: MAGNESIUM 1 GM/100 ML IVPB 100 ML IV SCH (07:09)
[2020-06-18] MEDS: KCL 20 MEQ TAB (K-DUR) PO SCH (07:09)
--- NOTE | 2020-06-18 07:53 | Physical Therapy Progress Note ---
Therapy Progress Note Performed PROM to upper and lower extremities through multiple angles and planes. BELLA OROZCO PT Jun 18, 2020 07:53
--- NOTE | 2020-06-18 08:08 | Physical Therapy Progress Note ---
Therapy Progress Note Patient remains sedated and intubated. PT will continue to follow patient status. FLORES TANG PT Jun 18, 2020 08:08
[2020-06-18] MEDS: dexAMETHasone INJECTION 20 MG in NS (IVPB) 50 ML IV SCH (08:17)
[2020-06-18] MEDS: PANTOPRAZOLE 40 MG (PROTONIX) VIAL IV SCH (08:17)
[2020-06-18] MEDS: guaiFENesin SYRUP 100 MG/5 ML 10 ML (ROBITUSSIN SF) PO SCH ×2 (08:18→21:15)
[2020-06-18] MEDS: ARTIFICIAL TEARS OINT (LACRI-LUBE) 3.5 GM TUBE OU SCH ×3 (08:18→21:15)
[2020-06-18] MEDS: ENOXAPARIN 300 MG/3 ML (LOVENOX) MULTI-DOSE VIAL SQ SCH ×2 (08:18→21:15)
--- NOTE | 2020-06-18 08:45 | Diagnostic Imaging Report ---
EXAMINATION: Chest radiograph, portable AP view. DATE: 06/18/2020 7:33 AM hours. INDICATION: 60-year-old female, shortness of breath. COMPARISON: June 17, 2020 FINDINGS: The endotracheal tube is approximately 4.5 cm above the mark. The nasogastric tube extends below the included field of view. The right internal jugular central venous line overlies the upper SVC. There is extensive multifocal bilateral lung consolidation which is largely unchanged in appearance since the comparison study. There are technical limitations of the exam. IMPRESSION: 1. Essentially unchanged nonspecific extensive multifocal bilateral lung consolidation. 2. Support lines and tubes as above. Dictated by: Dictated on workstation # [id number]
[2020-06-18] MEDS ORDERED: POTASSIUM PHOSPHATE INJ 30 MM in NS (IVPB) 250 ML IV ONE (09:00)
[2020-06-18] MEDS: fentaNYL 1,250 MCG/NS 250 ML DRIP IV SCH ×2 (11:03→17:49)
[2020-06-18] MEDS: aCETylcysteine 20% (MUCOMYST) 30ML SOLN VIAL INH PRN (11:12)
--- NOTE | 2020-06-18 15:51 | Occ Therapy Progress Note ---
Therapy Progress Note Patient remains sedated and intubated. OT will continue to follow patient status. BANDAR LUIS OT Jun 18, 2020 15:51
[2020-06-19] VITALS (29 sets, daily range): BP systolic 87–146; BP diastolic 56–95
[2020-06-19] MEDS: LACTATED RINGERS 1,000 ML IV SCH (00:19)
[2020-06-19] MEDS: MEROPENEM 500 MG/SWFI 10 ML IV PUSH IV SCH ×8 (01:57→19:48)
[2020-06-19] MEDS: RT-ALBUTEROL INHALER HFA (VENTOLIN HFA) 18 GM IH SCH ×5 (01:59→22:01)
[2020-06-19 02:18] LABS: BASOPHILS % (AUTO) 0 % (0-10); EOSINOPHILS # (AUTO) 0.1 10^3/uL (0.0-0.3); EOSINOPHILS % (AUTO) 1 % (0-10); HEMATOCRIT 32 % (35-52); HEMOGLOBIN 10.1 g/dL (11.5-16.0); LYMPHOCYTES # (AUTO) 1.1 10^3/uL (1.0-4.0); LYMPHOCYTES % (AUTO) 17 % (12-44); MEAN CORPUSCULAR HEMOGLOBIN 27 pg (25-34); MEAN CORPUSCULAR HGB CONC 32 g/dL (32-36); MEAN CORPUSCULAR VOLUME 86 fL (80-99); MEAN PLATELET VOLUME 11.1 fL (9.0-12.2); MONOCYTES # (AUTO) 0.3 10^3/uL (0.0-1.0); MONOCYTES % (AUTO) 5 % (0-12); NEUTROPHILS # (AUTO) 4.2 10^3/uL (1.8-7.8); NEUTROPHILS % (AUTO) 69 % (42-75); PLATELET COUNT 233 10^3/uL (130-400); WHITE BLOOD COUNT 6.1 10^3/uL (4.3-11.0)
[2020-06-19 02:19] LABS: ABG BASE EXCESS 4.7 MMOL/L (-2.5-2.5); ABG OXYGEN SATURATION 95 % (94-100); ABG PCO2 44 MMHG (35-45); ABG PH 7.44 (7.37-7.43); ABG PO2 74 MMHG (79-93); ABG TCO2 30.1 MMOL/L (21.0-31.0)
[2020-06-19 02:21] LABS: ALLENS TEST YES-POS; INSPIRED O2 50%; PATIENT TEMP 37.2; VENTILATOR YES
[2020-06-19 02:35] LABS: CHLORIDE 103 MMOL/L (98-107); SODIUM 138 MMOL/L (135-145)
[2020-06-19 02:36] LABS: GLUCOSE 104 MG/DL (70-105)
[2020-06-19 02:38] LABS: CARBON DIOXIDE 26 MMOL/L (21-32)
[2020-06-19 02:40] LABS: CREATININE SERUM 0.52 MG/DL (0.60-1.30); GFR ESTIMATED > 60; PHOSPHORUS 2.5 MG/DL (2.3-4.7)
[2020-06-19 02:41] LABS: BUN/CREATININE RATIO 25
[2020-06-19 02:43] LABS: MAGNESIUM 1.8 MG/DL (1.6-2.4)
--- NOTE | 2020-06-19 04:37 | Pulmonary Progress Note ---
Subjective Time Seen by a Provider: 04:31 Sepsis Event Evaluation Height, Weight, BMI Height: '" Weight: lbs. oz. kg; 30.00 BMI Method: Focused Exam Time of Focused Exam: 20:35 Exam Exam Vital Signs Date Time Temp Pulse Resp B/P (MAP) Pulse Ox O2 Delivery O2 Flow Rate FiO2 06/19/20 02:00 101 26 108/87 (94) 98 Mechanical Ventilator 50.00 06/19/20 01:59 93 26 97 60 06/19/20 01:00 94 06/19/20 01:00 94 25 115/77 (90) 99 Mechanical Ventilator 60.00 06/19/20 00:10 36.8 06/19/20 00:00 77 26 117/68 (84) 97 Mechanical Ventilator 60.00 06/18/20 23:00 82 26 116/72 (87) 97 Mechanical Ventilator 60.00 06/18/20 22:59 85 113/76 06/18/20 22:58 85 113/76 06/18/20 22:15 85 26 98 60 06/18/20 22:00 79 25 107/64 (78) 97 Mechanical Ventilator 60.00 06/18/20 21:00 1 Mechanical Ventilator 60 06/18/20 21:00 72 25 110/70 (83) 96 Mechanical Ventilator 60.00 06/18/20 20:00 69 26 111/71 (84) 95 Mechanical Ventilator 60.00 06/18/20 19:34 36.3 06/18/20 19:00 72 26 113/68 (83) 94 Mechanical Ventilator 60.00 06/18/20 19:00 72 06/18/20 18:27 71 26 97 60 06/18/20 18:00 71 26 111/68 (82) 98 Mechanical Ventilator 55.00 06/18/20 17:48 63 120/71 06/18/20 17:48 63 120/71 06/18/20 17:00 64 25 111/67 (82) 95 Mechanical Ventilator 55.00 06/18/20 16:38 89 55.00 06/18/20 16:07 36.6 06/18/20 16:00 69 21 113/73 (86) 97 Mechanical Ventilator 60.00 06/18/20 15:00 81 26 111/64 (80) 99 Mechanical Ventilator 60.00 06/18/20 14:58 82 26 99 70 06/18/20 14:11 94 60.00 06/18/20 14:00 80 25 101/65 (77) 96 Mechanical Ventilator 70.00 06/18/20 13:00 78 20 97/60 (72) 96 Mechanical Ventilator 70.00 06/18/20 12:39 82 06/18/20 12:00 81 30 97/58 (71) 95 Mechanical Ventilator 70.00 06/18/20 11:34 36.8 06/18/20 11:16 Mechanical Ventilator 70.00 06/18/20 11:12 77 26 94 60 06/18/20 11:05 37.0 06/18/20 11:05 79 132/83 06/18/20 11:04 79 132/83 06/18/20 11:00 84 27 102/61 (75) 94 Mechanical Ventilator 65.00 06/18/20 10:00 80 26 95/62 (73) 92 Mechanical Ventilator 65.00 06/18/20 09:00 86 19 93/61 (72) 92 Mechanical Ventilator 65.00 06/18/20 08:39 1 Mechanical Ventilator 65 06/18/20 08:30 36.7 92 65.00 06/18/20 08:00 88 22 93/70 (78) 94 Mechanical Ventilator 70.00 06/18/20 07:51 86 28 96 60 06/18/20 07:36 92 70.00 06/18/20 07:00 86 25 90/66 (74) 92 Mechanical Ventilator 55.00 06/18/20 06:37 88 06/18/20 06:00 87 26 126/80 (95) 92 Mechanical Ventilator 55.00 06/18/20 05:00 81 25 114/75 (88) 94 Mechanical Ventilator 55.00 I & O 06/19/20 07:00 Intake Total 1767 ml Output Total 2250 ml Balance -483 ml Height & Weight Height: '" Weight: lbs. oz. kg; 30.00 BMI Method: General Appearance: WD/WN, Chronically ill, Other (intubated and sedated) HEENT: PERRL/EOMI, Other (Very dry oral mucosa noted) Neck: Full Range of Motion Respiratory: Crackles, Decreased Breath Sounds Cardiovascular: Regular Rate, Rhythm Capillary Refill: Less Than 3 Seconds Peripheral Pulses: 2+ Radial Pulses (R), 2+ Radial Pulses (L) Extremity: Normal Inspection, Normal Range of Motion, Non Tender, No Calf Tenderness Neurologic/Psychiatric: Oriented x3, No Motor/Sensory Deficits, Normal Mood/Affect Skin: Normal Color, Warm/Dry Results Lab Laboratory Tests 06/18/20 02:30 06/19/20 02:10 Assessment/Plan Assessment/Plan Acute respiratory failure secondary to COVID 19 -Intubated 06/09 - PEEP to 20 -Continue ventilator care. -Continue proning patient -Currently on Propofol, Fentanyl COVID 19- PNA -Remdesivir 06/08 -Monitor LFTs with daily CMPs - Zosyn changed to Merrem 06/15 -Mucomyst per ET tube with albuterol txs secondary to mucous plugging -Mucinex -CVP -Continue Decadron 6mg IV -Increase Decadron to 20mg daily -Start Lasix q 12 -Will add 20meq of KCL to IVF while on Lasix -Start theraputic dose lovenox secondary to elevated DDImer -CTA of chest - nondiagnostic for PE secondary to poor timing -Check PCT, and BNP Elevated LFTs with elevated Bili -Monitor HOWARD YOU DO Jun 19, 2020 04:37
[2020-06-19] MEDS ORDERED: meTOprolol TARTRATE 25 MG (LOPRESSOR) TABLET ONE (05:05)
[2020-06-19] MEDS: FUROSEMIDE 40 MG/4 ML INJ (LASIX) IVP SCH ×3 (05:10→20:09)
[2020-06-19] MEDS ORDERED: meTOprolol 5 MG/5 ML (LOPRESSOR) VIAL ONE ×2 (05:13→06:00)
[2020-06-19] MEDS: POTASSIUM CL 10MEQ/50ML IVPB 50 ML IV SCH (05:19)
[2020-06-19] MEDS: MAGNESIUM 1 GM/100 ML IVPB 100 ML IV SCH ×3 (05:19→06:16)
[2020-06-19] MEDS: KCL 20 MEQ TAB (K-DUR) PO SCH (05:19)
[2020-06-19] MEDS: meTOprolol TARTRATE 25 MG (LOPRESSOR) TABLET PO SCH ×3 (05:20→20:09)
[2020-06-19] MEDS: PROPOFOL DRIP (ICU) 100 ML IV SCH ×4 (05:26→19:49)
[2020-06-19] MEDS ORDERED: meTOprolol 5 MG/5 ML (LOPRESSOR) VIAL IV ONE (06:15)
--- NOTE | 2020-06-19 07:44 | Physical Therapy Progress Note ---
Therapy Progress Note Patient remains sedated and intubated. PT will continue to follow patient status. FLORES TANG PT Jun 19, 2020 07:43
[2020-06-19] MEDS: POTASSIUM CHLORIDE INJ 20 MEQ in LACTATED RINGERS 1,000 ML IV SCH (07:49)
[2020-06-19] MEDS: PANTOPRAZOLE 40 MG (PROTONIX) VIAL IV SCH (07:51)
[2020-06-19] MEDS: dexAMETHasone INJECTION 20 MG in NS (IVPB) 50 ML IV SCH (07:51)
[2020-06-19] MEDS: ARTIFICIAL TEARS OINT (LACRI-LUBE) 3.5 GM TUBE OU SCH ×3 (07:51→19:47)
[2020-06-19] MEDS: guaiFENesin SYRUP 100 MG/5 ML 10 ML (ROBITUSSIN SF) PO SCH ×2 (07:52→19:48)
[2020-06-19] MEDS: ENOXAPARIN 300 MG/3 ML (LOVENOX) MULTI-DOSE VIAL SQ SCH ×2 (07:52→19:48)
--- NOTE | 2020-06-19 07:54 | Consultation-Cardiology ---
HPI-Cardiology Cardiology Consultation Date of Consultation 06/19/20 Date of Admission Time Seen by Provider: 07:50 Indication: supraventricular tachycardia HPI 60-year-old lady admitted with COVID-19 pneumonia, progressed to respiratory failure and intubation. Has been managed with critical care team, noted to have multiple episodes of supraventricular tachycardia. Currently she is in prone in position sedated and intubated. Unable to provide any history, history was obtained by reviewing her record Home Medications & Allergies Allergies: Coded Allergies: No Known Drug Allergies (Unverified , 06/07/20) Home Medication List Reviewed: Yes ASR-Szzuks-Bfqndz Hx Patient Social History Alcohol Use: Denies Use Recreational Drug Use: No Recent Foreign Travel: No Recent Infectious Disease Expo: Yes (COVID POSITIVE) Recent Hopitalizations: No Past Medical History Unable to obtain past medical history Family Medical History Family Medical Hx Unable to provide family history Review of Systems-General Review of Systems Constitutional: no symptoms reported, other (sedated and intubated, unable to p rovide review of systems) Genitourinary: no symptoms reported All Other Systems Reviewed Negative Unless Noted: Yes Reviewed Test Results Reviewed Test Results Lab Laboratory Tests Test 06/18/20 11:33 06/18/20 17:25 06/19/20 00:18 06/19/20 02:10 Range/Units Glucometer 133 H 146 H 104 70-110 MG/DL White Blood Count 6.1 4.3-11.0 10^3/uL Red Blood Count 3.72 L 3.80-5.11 10^6/uL Hemoglobin 10.1 L 11.5-16.0 g/dL Hematocrit 32 L 35-52 % Mean Corpuscular Volume 86 80-99 fL Mean Corpuscular Hemoglobin 27 25-34 pg Mean Corpuscular Hemoglobin Concent 32 32-36 g/dL Red Cell Distribution Width 14.3 10.0-14.5 % Platelet Count 233 130-400 10^3/uL Mean Platelet Volume 11.1 9.0-12.2 fL Immature Granulocyte % (Auto) 8 % Neutrophils (%) (Auto) 69 42-75 % Lymphocytes (%) (Auto) 17 12-44 % Monocytes (%) (Auto) 5 0-12 % Eosinophils (%) (Auto) 1 0-10 % Basophils (%) (Auto) 0 0-10 % Neutrophils # (Auto) 4.2 1.8-7.8 10^3/uL Lymphocytes # (Auto) 1.1 1.0-4.0 10^3/uL Monocytes # (Auto) 0.3 0.0-1.0 10^3/uL Eosinophils # (Auto) 0.1 0.0-0.3 10^3/uL Basophils # (Auto) 0.0 0.0-0.1 10^3/uL Immature Granulocyte # (Auto) 0.5 H 0.0-0.1 10^3/uL Blood Gas Puncture Site RIGHT RADIAL Blood Gas Patient Temperature 37.2 Arterial Blood pH 7.44 H 7.37-7.43 Arterial Blood Partial Pressure CO2 44 35-45 MMHG Arterial Blood Partial Pressure O2 74 L 79-93 MMHG Arterial Blood HCO3 29 H 23-27 MMOL/L Arterial Blood Total CO2 30.1 21.0-31.0 MMOL/L Arterial Blood Oxygen Saturation 95 94-100 % Arterial Blood Base Excess 4.7 H -2.5-2.5 MMOL/L Yinka Test YES-POS Blood Gas Ventilator Setting YES Blood Gas Inspired Oxygen 50% Sodium Level 138 135-145 MMOL/L Potassium Level 4.0 3.6-5.0 MMOL/L Chloride Level 103 98-107 MMOL/L Carbon Dioxide Level 26 21-32 MMOL/L Anion Gap 9 5-14 MMOL/L Blood Urea Nitrogen 13 7-18 MG/DL Creatinine 0.52 L 0.60-1.30 MG/DL Estimat Glomerular Filtration Rate > 60 BUN/Creatinine Ratio 25 Glucose Level 104 70-105 MG/DL Calcium Level 8.0 L 8.5-10.1 MG/DL Phosphorus Level 2.5 2.3-4.7 MG/DL Magnesium Level 1.8 1.6-2.4 MG/DL Test 06/19/20 05:37 Range/Units Troponin I < 0.028 <0.028 NG/ML Physical Exam Physical Exam Vital Signs Vital Signs - First Documented 06/13/20 06/13/20 06/13/20 00:00 01:29 08:59 Temp 37.0 Pulse 67 Resp 25 B/P (MAP) 112/58 (76) Pulse Ox 98 O2 Delivery Mechanical Ventilator O2 Flow Rate 45.00 FiO2 45 Capillary Refill : Less Than 3 Seconds Height, Weight, BMI Height: '" Weight: lbs. oz. kg; 30.00 BMI Method: General Appearance: Other (intubated and sedated) HEENT: PERRL/EOMI, Other (Very dry oral mucosa noted) Neck: Full Range of Motion Respiratory: Crackles, Decreased Breath Sounds Cardiovascular: Regular Rate, Rhythm Gastrointestinal: Abnormal Bowel Sounds Extremity: Normal Inspection Skin: Normal Color, Warm/Dry A/P-Cardiology Admission Diagnosis Supraventricular tachycardia Paroxysmal atrial tachycardia Acute respiratory failure COVID-19 pneumonia Assessment/Plan Supraventricular tachycardia, paroxysmal atrial tachycardia, ventilator dependent, currently in prone in position. Started on low-dose beta blockers, continue to monitor tolerance and response Acute respiratory failure secondary to COVID-19 pneumonia, ventilator dependent, on prone position, maintained on PEEP, managed by critical care team Ventilator-dependent respiratory failure managed by critical care team Hypotension, blood pressure is better at this time. Continue to monitor Clinical Quality Measures DVT/VTE Risk/Contraindication: Risk Factor Score Per Nursin RFS Level Per Nursing on Admit: 4+=Very High GONZALO AMBROSE MD Jun 19, 2020 07:54
--- NOTE | 2020-06-19 08:17 | Physical Therapy Progress Note ---
Therapy Progress Note Non skilled PROM B U/LE's performed in available range. ALEKSANDR SLAUGHTER PT Jun 19, 2020 08:17
--- NOTE | 2020-06-19 08:17 | Diagnostic Imaging Report ---
INDICATION: Shortness of breath. Frontal chest obtained at 0731 a.m. and is compared to yesterday. ET tube and NG tube and right IJ catheter all unchanged. Diffuse left-sided infiltrate is stable. There is worsening infiltrate in the right base, however, compared to yesterday. There is no pneumothorax or gross pleural fluid. IMPRESSION: Extensive left sided infiltrate is stable. There is worsening, however, of the infiltrate in the right midlung and base. Life support lines are unchanged. Dictated by: Dictated on workstation # [id number]
[2020-06-19] MEDS ORDERED: LACTATED RINGERS 1,000 ML IV ONE (09:43)
[2020-06-19] MEDS ORDERED: LACTATED RINGERS 500 ML IV ONE (09:45)
--- NOTE | 2020-06-19 09:46 | NUR ---
DR YOU NOTIFIED OF PT'S DECREASED BLOOD PRESSURE 87/57, THIS RN HAS ADJUSTED SEDATION SEVERAL TIMES THIS AM (SEE IV SPREADSHEET). NEW ORDERS RECEIVED TO GIVE 500 ML BOLUS OF LACTED RINGERS. ORDERS ENTERED AND BOLUS STARTED.
--- NOTE | 2020-06-19 10:00 | Occ Therapy Progress Note ---
Therapy Progress Note Pt continues on mechanical ventilation/ sedation. OT to continue to monitor and initiate tx when medically stable/ able to participate in skilled treatment. PIERRE HERNÁNDEZ OTR Jun 19, 2020 10:00
--- NOTE | 2020-06-19 11:58 | NUR ---
During care rounds, it was discussed to increase pt's tube feeds. Note pt currently receiving Pulmocare at 15ml/hr with flushes of 25ml water q4h. Would recommend conservative increases of 10ml q12h toward goal rate of 40ml/hr. Will continue to follow and reassess as pt needs, intake, and status change. Nivia Murphy, MS RD LD
[2020-06-19] MEDS: fentaNYL 1,250 MCG/NS 250 ML DRIP IV SCH (21:36)
[2020-06-20] VITALS (29 sets, daily range): BP systolic 91–136; BP diastolic 58–98
[2020-06-20] MEDS: RT-ALBUTEROL INHALER HFA (VENTOLIN HFA) 18 GM IH SCH ×6 (01:31→23:24)
[2020-06-20] MEDS: MEROPENEM 500 MG/SWFI 10 ML IV PUSH IV SCH ×8 (02:08→19:41)
[2020-06-20 02:29] LABS: BASOPHILS % (AUTO) 1 % (0-10); EOSINOPHILS # (AUTO) 0.1 10^3/uL (0.0-0.3); EOSINOPHILS % (AUTO) 2 % (0-10); HEMATOCRIT 29 % (35-52); HEMOGLOBIN 9.1 g/dL (11.5-16.0); LYMPHOCYTES # (AUTO) 1.2 10^3/uL (1.0-4.0); LYMPHOCYTES % (AUTO) 21 % (12-44); MEAN CORPUSCULAR HEMOGLOBIN 27 pg (25-34); MEAN CORPUSCULAR HGB CONC 32 g/dL (32-36); MEAN CORPUSCULAR VOLUME 86 fL (80-99); MEAN PLATELET VOLUME 11.2 fL (9.0-12.2); MONOCYTES # (AUTO) 0.3 10^3/uL (0.0-1.0); MONOCYTES % (AUTO) 6 % (0-12); NEUTROPHILS # (AUTO) 3.3 10^3/uL (1.8-7.8); NEUTROPHILS % (AUTO) 61 % (42-75); PLATELET COUNT 238 10^3/uL (130-400); WHITE BLOOD COUNT 5.4 10^3/uL (4.3-11.0)
[2020-06-20 02:30] LABS: ABG BASE EXCESS 9.8 MMOL/L (-2.5-2.5); ABG OXYGEN SATURATION 72 % (94-100); ABG PCO2 43 MMHG (35-45); ABG PH 7.51 (7.37-7.43); ABG PO2 43 MMHG (79-93); ABG TCO2 34.9 MMOL/L (21.0-31.0)
[2020-06-20 02:31] LABS: ALLENS TEST YES-POS; INSPIRED O2 60%; PATIENT TEMP 36.8; VENTILATOR YES
[2020-06-20 02:40] LABS: CHLORIDE 100 MMOL/L (98-107); POTASSIUM 3.5 MMOL/L (3.6-5.0); SODIUM 139 MMOL/L (135-145)
[2020-06-20 02:41] LABS: CALCIUM 7.7 MG/DL (8.5-10.1)
[2020-06-20 02:42] LABS: GLUCOSE 98 MG/DL (70-105)
[2020-06-20 02:43] LABS: CARBON DIOXIDE 30 MMOL/L (21-32)
[2020-06-20 02:45] LABS: PHOSPHORUS 2.3 MG/DL (2.3-4.7)
[2020-06-20 02:46] LABS: CREATININE SERUM 0.51 MG/DL (0.60-1.30); GFR ESTIMATED > 60
[2020-06-20 02:47] LABS: BUN/CREATININE RATIO 29
[2020-06-20 02:48] LABS: MAGNESIUM 1.9 MG/DL (1.6-2.4)
[2020-06-20] MEDS: PROPOFOL DRIP (ICU) 100 ML IV SCH ×5 (03:41→19:41)
--- NOTE | 2020-06-20 03:58 | Pulmonary Progress Note ---
Subjective Time Seen by a Provider: 03:54 Subjective/Events-last exam Pt is sedated on vent. Sepsis Event Evaluation Height, Weight, BMI Height: '" Weight: lbs. oz. kg; 30.00 BMI Method: Focused Exam Time of Focused Exam: 20:35 Exam Exam Vital Signs Date Time Temp Pulse Resp B/P (MAP) Pulse Ox O2 Delivery O2 Flow Rate FiO2 06/20/20 03:42 81 114/76 06/20/20 03:41 81 114/76 06/20/20 03:00 82 25 126/74 (91) 94 Mechanical Ventilator 60.00 06/20/20 02:00 77 25 107/69 (82) 94 Mechanical Ventilator 60.00 06/20/20 01:31 78 26 92 60 06/20/20 01:00 80 06/20/20 01:00 78 26 109/66 (80) 92 Mechanical Ventilator 60.00 06/20/20 00:00 85 25 109/63 (78) 95 Mechanical Ventilator 60.00 06/19/20 23:00 76 25 112/69 (83) 94 Mechanical Ventilator 60.00 06/19/20 22:05 Mechanical Ventilator 60.00 06/19/20 22:01 82 26 90 60 06/19/20 22:00 75 26 123/82 (96) 91 Mechanical Ventilator 55.00 06/19/20 21:00 Mechanical Ventilator 55 06/19/20 21:00 88 26 123/78 (93) 92 Mechanical Ventilator 55.00 06/19/20 20:00 93 23 128/78 (95) 92 Mechanical Ventilator 55.00 06/19/20 19:49 92 140/92 06/19/20 19:47 89 140/92 06/19/20 19:25 36.7 06/19/20 19:01 78 26 95 55 06/19/20 19:00 84 25 137/92 (107) 92 Mechanical Ventilator 55.00 06/19/20 19:00 92 06/19/20 18:00 82 26 114/77 (89) 94 Mechanical Ventilator 55.00 06/19/20 17:00 83 27 134/86 (102) 92 Mechanical Ventilator 55.00 06/19/20 16:00 95 30 146/94 (111) 92 Mechanical Ventilator 55.00 06/19/20 15:42 36.5 11/3/20 15:00 81 14 146/89 (108) 99 Mechanical Ventilator 55.00 06/19/20 14:00 74 26 91/61 (71) 96 Mechanical Ventilator 55.00 06/19/20 13:00 77 26 93/62 (72) 95 Mechanical Ventilator 55.00 06/19/20 12:46 78 06/19/20 12:00 78 25 90/56 (67) 96 Mechanical Ventilator 55.00 06/19/20 11:58 36.9 06/19/20 11:58 78 113/70 06/19/20 11:34 37.0 06/19/20 11:00 80 21 100/62 (75) 91 Mechanical Ventilator 55.00 06/19/20 10:26 78 26 91 55 06/19/20 10:00 80 25 102/60 (74) 93 Mechanical Ventilator 55.00 06/19/20 09:00 85 26 87/57 (67) 93 Mechanical Ventilator 55.00 06/19/20 08:28 1 Mechanical Ventilator 65 06/19/20 08:00 84 25 102/62 (75) 90 Mechanical Ventilator 55.00 06/19/20 07:48 36.6 55.00 06/19/20 07:00 88 25 94/57 (69) 96 Mechanical Ventilator 50.00 06/19/20 06:43 89 26 95 50 06/19/20 06:36 87 06/19/20 06:06 89 25 121/81 (94) 94 Mechanical Ventilator 50.00 06/19/20 05:26 82 107/67 06/19/20 05:26 82 107/67 06/19/20 05:00 85 25 112/70 (84) 96 Mechanical Ventilator 50.00 06/19/20 04:00 87 26 112/61 (78) 96 Mechanical Ventilator 50.00 I & O 06/20/20 07:00 Intake Total 1692 ml Output Total 5000 ml Balance -3308 ml Height & Weight Height: '" Weight: lbs. oz. kg; 30.00 BMI Method: General Appearance: Other (intubated and sedated) HEENT: PERRL/EOMI, Other (Very dry oral mucosa noted) Neck: Full Range of Motion Respiratory: Crackles, Decreased Breath Sounds Cardiovascular: Regular Rate, Rhythm Capillary Refill: Less Than 3 Seconds Peripheral Pulses: 2+ Radial Pulses (R), 2+ Radial Pulses (L) Extremity: Normal Inspection Skin: Normal Color, Warm/Dry Results Lab Laboratory Tests 06/19/20 02:10 06/20/20 02:15 Assessment/Plan Assessment/Plan Acute respiratory failure secondary to COVID 19 -Intubated 06/09 - PEEP to 18 -Continue ventilator care. -Continue proning patient -Currently on Propofol, Fentanyl COVID 19- PNA -Remdesivir 06/08 -Monitor LFTs with daily CMPs - Zosyn changed to Merrem 06/15 -Mucomyst per ET tube with albuterol txs secondary to mucous plugging -Mucinex -CVP -Continue Decadron 6mg IV -Increase Decadron to 20mg daily -Start Lasix q 12 -Will add 20meq of KCL to IVF while on Lasix -Start theraputic dose lovenox secondary to elevated DDImer -CTA of chest - nondiagnostic for PE secondary to poor timing -Check PCT, and BNP Elevated LFTs with elevated Bili -Monitor HOWARD YOU DO Jun 20, 2020 03:58
[2020-06-20] MEDS: POTASSIUM CL 10MEQ/50ML IVPB 50 ML IV SCH ×3 (05:14→05:19)
[2020-06-20] MEDS: KCL 20 MEQ TAB (K-DUR) PO SCH (05:14)
[2020-06-20] MEDS: MAGNESIUM 1 GM/100 ML IVPB 100 ML IV SCH (05:14)
--- NOTE | 2020-06-20 07:44 | Physical Therapy Progress Note ---
Therapy Progress Note Performed (B) UE and LE PROM through multiple angles and multiple planes. BELLA OROZCO PT Jun 20, 2020 07:44
[2020-06-20] MEDS: dexAMETHasone INJECTION 20 MG in NS (IVPB) 50 ML IV SCH (08:01)
[2020-06-20] MEDS: PANTOPRAZOLE 40 MG (PROTONIX) VIAL IV SCH (08:01)
[2020-06-20] MEDS: ARTIFICIAL TEARS OINT (LACRI-LUBE) 3.5 GM TUBE OU SCH ×3 (08:01→21:34)
--- NOTE | 2020-06-20 08:03 | Physical Therapy Progress Note ---
Therapy Progress Note Patient remains ventilated and sedated, will continue to monitor. MYESHA DIEGO PT Jun 20, 2020 08:03
[2020-06-20] MEDS: ENOXAPARIN 300 MG/3 ML (LOVENOX) MULTI-DOSE VIAL SQ SCH ×2 (08:09→21:34)
[2020-06-20] MEDS: POTASSIUM CHLORIDE INJ 20 MEQ in LACTATED RINGERS 1,000 ML IV SCH (08:14)
[2020-06-20] MEDS: FUROSEMIDE 40 MG/4 ML INJ (LASIX) IVP SCH ×2 (08:17→21:34)
[2020-06-20] MEDS: meTOprolol TARTRATE 25 MG (LOPRESSOR) TABLET PO SCH ×2 (08:17→21:34)
[2020-06-20] MEDS: guaiFENesin SYRUP 100 MG/5 ML 10 ML (ROBITUSSIN SF) PO SCH ×2 (08:18→21:34)
--- NOTE | 2020-06-20 08:22 | Occ Therapy Progress Note ---
Therapy Progress Note OT continues to monitor. Pt. on mechanical ventilation and sedation. Will need new OT orders to begin therapy when pt. is medically stable. 0822 JENNIFER JACOBSON OT Jun 20, 2020 08:22
[2020-06-20] MEDS: fentaNYL 1,250 MCG/NS 250 ML DRIP IV SCH ×2 (08:32→21:33)
[2020-06-20 08:35] LABS: ABG BASE EXCESS 7.5 MMOL/L (-2.5-2.5); ABG OXYGEN SATURATION 97 % (94-100); ABG PCO2 49 MMHG (35-45); ABG PH 7.43 (7.37-7.43); ABG PO2 93 MMHG (79-93)
[2020-06-20 08:38] LABS: ALLENS TEST POSITIVE
[2020-06-20 08:39] LABS: INSPIRED O2 50%; PATIENT TEMP 38.6; VENTILATOR YES
--- NOTE | 2020-06-20 08:56 | Diagnostic Imaging Report ---
EXAMINATION: Chest 1 view HISTORY: COVID positive. Intubated. COMPARISON: Chest radiograph on 06/19/2020. FINDINGS: There is stable configuration of the right internal jugular central line and endotracheal tube. The enteric tube appears to have been pulled back with the tip now overlying the lower 3rd of the esophagus. There is improved aeration in the bilateral mid and lower lungs with continued patchy opacities present. No large pleural effusion or pneumothorax. Stable cardiac silhouette. IMPRESSION: 1. Improved aeration in the bilateral mid and lower lungs. 2. Interval retraction of the enteric tube with the tip now overlying the lower 3rd of the esophagus. Recommend advancing or replacement. The remaining support devices are stable. Report was called to [facility] by phuong at 8:55am. Dictated by: Dictated on workstation # [id number]
[2020-06-20] MEDS ORDERED: POTASSIUM PHOSPHATE INJ 30 MM in NS (IVPB) 250 ML IV ONE (09:00)
--- NOTE | 2020-06-20 13:16 | NUR ---
LATE ENTRY: UPON MORNING ASSESSMENT THIS RN UNABLE TO AUSCULTATE OG PLACEMENT, 2ND RN CAME IN TO ROOM AND ALSO UNABLE TO AUSCULTATE PLACEMENT. OG TUBE REMOVED AND NEW ONE PLACED. PLACEMENT VERIFIED BY THIS RN AND Delphine CONNOR RN.
--- NOTE | 2020-06-20 13:19 | NUR ---
LATE ENTRY: THIS RN NOTIFIED OF CXR RESULTS AND THIS RN NOTIFIED RT.
--- NOTE | 2020-06-20 14:38 | NUR ---
TF FOLLOW-UP Note pt currently receiving Pulmocare 1.5 kcal at rate of 15ml/hr with flushes of 25ml water q4h. Would recommend conservative increases of 10ml q12h toward goal rate of 40ml/hr. Will continue to follow and reassess as pt needs, intake, and status change. Nivia Murphy, MS RD LD
[2020-06-21] VITALS (29 sets, daily range): BP systolic 87–152; BP diastolic 52–92
[2020-06-21] MEDS: PROPOFOL DRIP (ICU) 100 ML IV SCH ×6 (02:18→17:28)
[2020-06-21] MEDS: MEROPENEM 500 MG/SWFI 10 ML IV PUSH IV SCH ×8 (02:18→20:21)
[2020-06-21 02:40] LABS: ABG BASE EXCESS 11.1 MMOL/L (-2.5-2.5); ABG OXYGEN SATURATION 74 % (94-100); ABG PCO2 49 MMHG (35-45); ABG PH 7.48 (7.37-7.43); ABG PO2 47 MMHG (79-93); ABG TCO2 36.9 MMOL/L (21.0-31.0)
[2020-06-21 02:42] LABS: ALLENS TEST POS
[2020-06-21 02:43] LABS: INSPIRED O2 45%; PATIENT TEMP 36.9; VENTILATOR YES
[2020-06-21 02:49] LABS: BASOPHILS # (AUTO) 0.1 10^3/uL (0.0-0.1); BASOPHILS % (AUTO) 1 % (0-10); EOSINOPHILS # (AUTO) 0.1 10^3/uL (0.0-0.3); EOSINOPHILS % (AUTO) 2 % (0-10); HEMATOCRIT 32 % (35-52); HEMOGLOBIN 10.1 g/dL (11.5-16.0); LYMPHOCYTES # (AUTO) 1.3 10^3/uL (1.0-4.0); LYMPHOCYTES % (AUTO) 20 % (12-44); MEAN CORPUSCULAR HEMOGLOBIN 27 pg (25-34); MEAN CORPUSCULAR HGB CONC 31 g/dL (32-36); MEAN CORPUSCULAR VOLUME 86 fL (80-99); MEAN PLATELET VOLUME 11.5 fL (9.0-12.2); MONOCYTES # (AUTO) 0.3 10^3/uL (0.0-1.0); MONOCYTES % (AUTO) 5 % (0-12); NEUTROPHILS % (AUTO) 60 % (42-75); PLATELET COUNT 273 10^3/uL (130-400); WHITE BLOOD COUNT 6.7 10^3/uL (4.3-11.0)
[2020-06-21 02:57] LABS: CHLORIDE 97 MMOL/L (98-107); POTASSIUM 3.5 MMOL/L (3.6-5.0); SODIUM 139 MMOL/L (135-145)
[2020-06-21 02:59] LABS: GLUCOSE 101 MG/DL (70-105)
[2020-06-21 03:01] LABS: CARBON DIOXIDE 30 MMOL/L (21-32)
[2020-06-21 03:03] LABS: CREATININE SERUM 0.51 MG/DL (0.60-1.30); GFR ESTIMATED > 60; PHOSPHORUS 2.9 MG/DL (2.3-4.7)
[2020-06-21 03:04] LABS: BUN/CREATININE RATIO 25
[2020-06-21 03:05] LABS: MAGNESIUM 1.8 MG/DL (1.6-2.4)
[2020-06-21] MEDS: POTASSIUM CL 10MEQ/50ML IVPB 50 ML IV SCH ×6 (03:56→08:53)
[2020-06-21] MEDS: RT-ALBUTEROL INHALER HFA (VENTOLIN HFA) 18 GM IH SCH ×6 (04:12→21:24)
--- NOTE | 2020-06-21 04:20 | Pulmonary Progress Note ---
Subjective Time Seen by a Provider: 04:18 Sepsis Event Evaluation Height, Weight, BMI Height: '" Weight: lbs. oz. kg; 30.00 BMI Method: Focused Exam Time of Focused Exam: 20:35 Exam Exam Vital Signs Date Time Temp Pulse Resp B/P (MAP) Pulse Ox O2 Delivery O2 Flow Rate FiO2 06/21/20 02:19 76 110/72 06/21/20 02:18 76 110/72 06/21/20 01:00 81 06/21/20 00:00 79 22 121/78 (92) 95 Mechanical Ventilator 45.00 06/20/20 23:24 Mechanical Ventilator 45.00 06/20/20 23:24 71 22 95 50 06/20/20 23:00 73 22 110/78 (89) 94 Mechanical Ventilator 50.00 06/20/20 22:00 84 22 112/77 (89) 95 Mechanical Ventilator 50.00 06/20/20 21:00 Mechanical Ventilator 50 06/20/20 21:00 73 22 125/86 (99) 94 Mechanical Ventilator 50.00 06/20/20 20:00 86 22 123/80 (94) 95 Mechanical Ventilator 50.00 06/20/20 19:55 91 22 94 55 06/20/20 19:41 81 123/81 06/20/20 19:40 92 123/81 06/20/20 19:00 74 06/20/20 19:00 74 21 121/91 (101) 97 Mechanical Ventilator 50.00 06/20/20 18:00 75 21 118/73 (88) 98 Mechanical Ventilator 50.00 06/20/20 17:00 81 19 119/83 (95) 92 Mechanical Ventilator 50.00 06/20/20 16:00 82 28 113/77 (89) 93 Mechanical Ventilator 50.00 06/20/20 15:52 36.3 06/20/20 15:00 73 35 136/95 (109) 99 Mechanical Ventilator 50.00 06/20/20 14:40 78 22 93 50 06/20/20 14:00 73 22 93 Mechanical Ventilator 50.00 06/20/20 13:00 68 22 107/72 (84) 95 Mechanical Ventilator 50.00 06/20/20 12:37 71 06/20/20 12:00 72 22 91/60 (70) 93 Mechanical Ventilator 50.00 06/20/20 11:34 73 106/71 11/4/20 11:30 36.8 06/20/20 11:00 76 22 96/60 (72) 94 Mechanical Ventilator 50.00 06/20/20 10:49 78 22 94 55 06/20/20 10:00 77 21 105/64 (78) 93 Mechanical Ventilator 50.00 06/20/20 09:00 76 21 95/64 (74) 94 Mechanical Ventilator 50.00 06/20/20 08:15 1 Mechanical Ventilator 55 06/20/20 08:00 84 22 101/64 (76) 96 Mechanical Ventilator 50.00 06/20/20 07:33 36.8 90 50.00 06/20/20 07:00 86 23 112/83 (93) 94 Mechanical Ventilator 60.00 06/20/20 06:56 89 06/20/20 06:50 89 22 94 60 06/20/20 06:00 80 25 105/69 (81) 95 Mechanical Ventilator 60.00 06/20/20 05:00 78 25 106/63 (77) 95 Mechanical Ventilator 60.00 I & O 06/21/20 07:00 Intake Total 1280 ml Output Total 4250 ml Balance -2970 ml Height & Weight Height: '" Weight: lbs. oz. kg; 30.00 BMI Method: General Appearance: Other (intubated and sedated) HEENT: PERRL/EOMI, Other (Very dry oral mucosa noted) Neck: Full Range of Motion Respiratory: Crackles, Decreased Breath Sounds Cardiovascular: Regular Rate, Rhythm Capillary Refill: Less Than 3 Seconds Peripheral Pulses: 2+ Radial Pulses (R), 2+ Radial Pulses (L) Extremity: Normal Inspection Skin: Normal Color, Warm/Dry Results Lab Laboratory Tests 06/20/20 02:15 06/21/20 02:24 Assessment/Plan Assessment/Plan Acute respiratory failure secondary to COVID 19 -Intubated 06/09 - PEEP to 18 -Continue ventilator care. -Continue proning patient -Currently on Propofol, Fentanyl COVID 19- PNA -Remdesivir 06/08 -Monitor LFTs with daily CMPs - Zosyn changed to Merrem 06/15 -Mucomyst per ET tube with albuterol txs secondary to mucous plugging -Mucinex -CVP -Continue Decadron 6mg IV -Increase Decadron to 20mg daily -Start Lasix q 12 -Will add 20meq of KCL to IVF while on Lasix -Start theraputic dose lovenox secondary to elevated DDImer -CTA of chest - nondiagnostic for PE secondary to poor timing -Check PCT, and BNP Elevated LFTs with elevated Bili -Monitor HOWARD YOU DO Jun 21, 2020 04:20
[2020-06-21] MEDS: KCL 20 MEQ TAB (K-DUR) PO SCH (05:31)
[2020-06-21] MEDS: FUROSEMIDE 40 MG/4 ML INJ (LASIX) IVP SCH ×2 (05:31→17:27)
[2020-06-21] MEDS: MAGNESIUM 1 GM/100 ML IVPB 100 ML IV SCH (05:32)
[2020-06-21] MEDS: aCETylcysteine 20% (MUCOMYST) 30ML SOLN VIAL INH PRN (07:30)
--- NOTE | 2020-06-21 08:11 | Physical Therapy Progress Note ---
Therapy Progress Note Patient remains sedated and intubated. PT will continue to follow patient status. FLORES TANG PT Jun 21, 2020 08:11
--- NOTE | 2020-06-21 08:21 | Diagnostic Imaging Report ---
HISTORY: Tube placement. COMPARISON: 06/20/2020 TECHNIQUE: Frontal view of the chest. FINDINGS: The endotracheal tube is 5.6 cm above the mark. The right jugular line tip projects over the mid SVC. The tip of the enteric tube projects over the distal esophagus near the GE junction. Dense airspace consolidation is seen in the lungs bilaterally, left greater than right. Overall aeration appears stable since the prior study. The cardiac silhouette is normal in size. No pneumothorax is seen. IMPRESSION: 1. The tip of the enteric tube projects over the distal esophagus. The endotracheal tube is stable. 2. Airspace consolidation, left greater than right, appear similar to the prior exam. Dictated by: Dictated on workstation # [id number]
[2020-06-21] MEDS: POTASSIUM CHLORIDE INJ 20 MEQ in LACTATED RINGERS 1,000 ML IV SCH (08:52)
[2020-06-21] MEDS: fentaNYL 1,250 MCG/NS 250 ML DRIP IV SCH ×2 (08:55→20:20)
[2020-06-21] MEDS: dexAMETHasone INJECTION 20 MG in NS (IVPB) 50 ML IV SCH (08:57)
[2020-06-21] MEDS: ENOXAPARIN 300 MG/3 ML (LOVENOX) MULTI-DOSE VIAL SQ SCH ×2 (08:58→20:21)
[2020-06-21] MEDS: PANTOPRAZOLE 40 MG (PROTONIX) VIAL IV SCH (08:58)
[2020-06-21] MEDS: guaiFENesin SYRUP 100 MG/5 ML 10 ML (ROBITUSSIN SF) PO SCH ×2 (08:58→20:21)
[2020-06-21] MEDS: ARTIFICIAL TEARS OINT (LACRI-LUBE) 3.5 GM TUBE OU SCH ×3 (09:01→20:20)
[2020-06-21] MEDS: meTOprolol TARTRATE 25 MG (LOPRESSOR) TABLET PO SCH ×3 (09:02→20:22)
--- NOTE | 2020-06-21 10:05 | Physical Therapy Progress Note ---
Therapy Progress Note Non skilled PROM B U/LE' s all available planes. ALEKSANDR SLAUGHTER PT Jun 21, 2020 10:05
--- NOTE | 2020-06-21 10:37 | Diagnostic Imaging Report ---
INDICATION: OG tube repositioning. Frontal chest obtained at 1004 a.m. is compared to 0729 a.m. the same day. ET tube tip overlies mid trachea, without significant change compared to the prior study. OG tube has been advanced the tip is now overlying distal stomach. Right IJ catheter is unchanged. No change in bibasilar infiltrates. There is no pneumothorax or pleural fluid. IMPRESSION: Stable bibasilar infiltrates. OG-tube advanced compared to the prior study with tip now overlying distal stomach. Remaining lines unchanged. Dictated by: Dictated on workstation # [id number]
--- NOTE | 2020-06-21 13:51 | NUR ---
During care rounds, it was noted that TF is currently being held as pt had regurgitated formula. Recommend holding TF at this time. Will continue to follow and reassess as pt needs, intake, and status change. Nivia Murphy, MS RD LD
[2020-06-21] MEDS: LORazepam INJ 2 MG/ML (ATIVAN) VIAL IV PRN (17:52)
[2020-06-22] VITALS (29 sets, daily range): BP systolic 94–156; BP diastolic 60–86
[2020-06-22] MEDS ORDERED: inSUlin ASPART (NovoLOG) 1 UNIT/0.01 ML (CHARGE PER UNIT) SC SCH
[2020-06-22] MEDS: MEROPENEM 500 MG/SWFI 10 ML IV PUSH IV SCH ×2 (01:40)
[2020-06-22] MEDS: PROPOFOL DRIP (ICU) 100 ML IV SCH ×5 (01:40→20:26)
[2020-06-22 03:32] LABS: BASOPHILS % (AUTO) 1 % (0-10); EOSINOPHILS # (AUTO) 0.2 10^3/uL (0.0-0.3); EOSINOPHILS % (AUTO) 2 % (0-10); HEMATOCRIT 33 % (35-52); HEMOGLOBIN 10.5 g/dL (11.5-16.0); LYMPHOCYTES # (AUTO) 1.3 10^3/uL (1.0-4.0); LYMPHOCYTES % (AUTO) 22 % (12-44); MEAN CORPUSCULAR HEMOGLOBIN 27 pg (25-34); MEAN CORPUSCULAR HGB CONC 32 g/dL (32-36); MEAN CORPUSCULAR VOLUME 86 fL (80-99); MEAN PLATELET VOLUME 11.3 fL (9.0-12.2); MONOCYTES # (AUTO) 0.3 10^3/uL (0.0-1.0); MONOCYTES % (AUTO) 5 % (0-12); NEUTROPHILS # (AUTO) 3.7 10^3/uL (1.8-7.8); NEUTROPHILS % (AUTO) 60 % (42-75); PLATELET COUNT 275 10^3/uL (130-400); WHITE BLOOD COUNT 6.2 10^3/uL (4.3-11.0)
[2020-06-22 03:32] LABS: ABG BASE EXCESS 10.5 MMOL/L (-2.5-2.5); ABG OXYGEN SATURATION 92 % (94-100); ABG PCO2 47 MMHG (35-45); ABG PH 7.48 (7.37-7.43); ABG PO2 73 MMHG (79-93); ABG TCO2 36.2 MMOL/L (21.0-31.0)
[2020-06-22 03:34] LABS: INSPIRED O2 40; PATIENT TEMP 36.8; VENTILATOR YES
[2020-06-22 03:47] LABS: CHLORIDE 95 MMOL/L (98-107); POTASSIUM 3.6 MMOL/L (3.6-5.0); SODIUM 138 MMOL/L (135-145)
[2020-06-22 03:48] LABS: CALCIUM 8.2 MG/DL (8.5-10.1); GLUCOSE 94 MG/DL (70-105)
[2020-06-22 03:49] LABS: TRIGLYCERIDES 404 MG/DL (<150)
[2020-06-22 03:50] LABS: CARBON DIOXIDE 31 MMOL/L (21-32)
[2020-06-22 03:52] LABS: CREATININE SERUM 0.47 MG/DL (0.60-1.30); GFR ESTIMATED > 60; PHOSPHORUS 2.7 MG/DL (2.3-4.7)
[2020-06-22 03:53] LABS: BUN/CREATININE RATIO 28
[2020-06-22 03:55] LABS: MAGNESIUM 1.8 MG/DL (1.6-2.4)
[2020-06-22] MEDS: RT-ALBUTEROL INHALER HFA (VENTOLIN HFA) 18 GM IH SCH ×6 (03:58→22:24)
[2020-06-22] MEDS: POTASSIUM CL 10MEQ/50ML IVPB 50 ML IV SCH ×2 (04:04→05:17)
[2020-06-22] MEDS: KCL 20 MEQ TAB (K-DUR) PO SCH (04:05)
[2020-06-22] MEDS: MAGNESIUM 1 GM/100 ML IVPB 100 ML IV SCH (04:05)
--- NOTE | 2020-06-22 04:55 | Pulmonary Progress Note ---
Subjective Time Seen by a Provider: 04:52 Subjective/Events-last exam No complications noted. Sepsis Event Evaluation Height, Weight, BMI Height: '" Weight: lbs. oz. kg; 30.00 BMI Method: Focused Exam Time of Focused Exam: 20:35 Exam Exam Vital Signs Date Time Temp Pulse Resp B/P (MAP) Pulse Ox O2 Delivery O2 Flow Rate FiO2 06/22/20 03:58 80 22 92 50 06/22/20 02:00 Mechanical Ventilator 40.00 06/22/20 01:41 75 106/66 06/22/20 01:40 75 106/66 06/22/20 00:00 36.8 06/21/20 21:24 73 22 91 50 06/21/20 21:00 Mechanical Ventilator 50 06/21/20 20:00 36.0 06/21/20 19:00 80 21 108/67 (81) 91 Mechanical Ventilator 50.00 06/21/20 19:00 80 06/21/20 18:00 94 22 106/74 (85) 96 Mechanical Ventilator 50.00 06/21/20 17:28 80 117/76 06/21/20 17:27 80 117/76 06/21/20 17:00 77 22 117/76 (90) 89 Mechanical Ventilator 50.00 06/21/20 16:08 36.0 06/21/20 16:00 76 21 121/78 (92) 87 Mechanical Ventilator 50.00 06/21/20 15:00 81 21 135/84 (101) 93 Mechanical Ventilator 50.00 06/21/20 14:51 50.00 06/21/20 14:22 79 22 95 55 06/21/20 14:00 71 22 152/92 (112) 94 Mechanical Ventilator 40.00 06/21/20 13:00 74 21 87/52 (64) 96 Mechanical Ventilator 40.00 06/21/20 12:53 74 06/21/20 12:00 78 21 92/56 (68) 94 Mechanical Ventilator 40.00 06/21/20 11:27 36.8 06/21/20 11:00 86 20 97/55 (69) 93 Mechanical Ventilator 40.00 06/21/20 10:29 85 22 92 55 06/21/20 10:00 87 22 100/61 (74) 91 Mechanical Ventilator 40.00 06/21/20 09:06 36.4 06/21/20 09:01 89 100/67 06/21/20 09:00 92 25 87/55 (66) 90 Mechanical Ventilator 40.00 06/21/20 08:55 89 100/67 06/21/20 08:00 87 23 100/67 (78) 91 Mechanical Ventilator 40.00 06/21/20 07:40 Mechanical Ventilator 50 06/21/20 07:30 80 22 94 50 06/21/20 07:00 84 22 101/77 (85) 94 Mechanical Ventilator 40.00 06/21/20 06:35 82 06/21/20 06:00 85 24 124/85 (98) 94 Mechanical Ventilator 40.00 06/21/20 05:00 83 25 127/76 (93) 94 Mechanical Ventilator 40.00 I & O 06/22/20 07:00 Intake Total 2062 ml Output Total 4290 ml Balance -2228 ml Height & Weight Height: '" Weight: lbs. oz. kg; 30.00 BMI Method: General Appearance: Other (intubated and sedated) HEENT: PERRL/EOMI, Other (Very dry oral mucosa noted) Neck: Full Range of Motion Respiratory: Crackles, Decreased Breath Sounds Cardiovascular: Regular Rate, Rhythm Capillary Refill: Less Than 3 Seconds Peripheral Pulses: 2+ Radial Pulses (R), 2+ Radial Pulses (L) Extremity: Normal Inspection Skin: Normal Color, Warm/Dry Results Lab Laboratory Tests 06/21/20 02:24 06/22/20 03:10 Assessment/Plan Assessment/Plan Acute respiratory failure secondary to COVID 19 -Intubated 06/09 - PEEP to 14 -Continue ventilator care. -Continue proning patient -Currently on Propofol, Fentanyl COVID 19- PNA -Remdesivir 06/08 -Monitor LFTs with daily CMPs - Zosyn changed to Merrem 06/15 -Mucomyst per ET tube with albuterol txs secondary to mucous plugging -Mucinex -CVP -Continue Decadron 6mg IV -Increase Decadron to 20mg daily -Start Lasix q 12 -Will add 20meq of KCL to IVF while on Lasix -Start theraputic dose lovenox secondary to elevated DDImer -CTA of chest - nondiagnostic for PE secondary to poor timing -Check PCT, and BNP Elevated LFTs with elevated Bili -Monitor HOWARD YOU DO Jun 22, 2020 04:55
[2020-06-22] MEDS: fentaNYL 1,250 MCG/NS 250 ML DRIP IV SCH ×4 (05:17→23:06)
[2020-06-22] MEDS: FUROSEMIDE 40 MG/4 ML INJ (LASIX) IVP SCH ×2 (05:17→16:42)
[2020-06-22] MEDS: POTASSIUM CHLORIDE INJ 20 MEQ in LACTATED RINGERS 1,000 ML IV SCH ×2 (05:18→16:43)
--- NOTE | 2020-06-22 07:30 | NUR ---
While turning patient supine, ET tube and OG tube became dislodged. Dr. Hale notified of need for reintubation. Dr. Hale responded immediately and patient reintubated with 8.0 ET tube. 5mg propofol given IVP by Dr. Hale and 50mg rosalba given IVP for RSI. Radiology at bedside for stat CXR to confirm ET tube and OG tube placement.
--- NOTE | 2020-06-22 08:03 | Physical Therapy Progress Note ---
Therapy Progress Note Patient remains sedated and intubated. PT will continue to follow patient status and initiate treatment when patient is medically stable and able to actively participate with skilled therapy. FLORES TANG PT Jun 22, 2020 08:03
--- NOTE | 2020-06-22 08:25 | Diagnostic Imaging Report ---
INDICATION: OG tube placement. Frontal chest obtained at 7:57 a.m. and is compared to same day at 7:46 a.m. OG tube has been pulled back and tip now overlies mid stomach. ET tube and right IJ catheter unchanged. Extensive bilateral infiltrates are unchanged. There is no pneumothorax or pleural fluid. IMPRESSION: Compared to the recent prior study, the OG tube is been pulled back, tip is now overlying mid stomach. Other findings are stable. Dictated by: Dictated on workstation # [id number]
[2020-06-22] MEDS: guaiFENesin SYRUP 100 MG/5 ML 10 ML (ROBITUSSIN SF) PO SCH ×2 (08:28→20:26)
[2020-06-22] MEDS: PANTOPRAZOLE 40 MG (PROTONIX) VIAL IV SCH (08:28)
[2020-06-22] MEDS: meTOprolol TARTRATE 25 MG (LOPRESSOR) TABLET PO SCH ×2 (08:29→20:26)
[2020-06-22] MEDS: inSUlin ASPART (NovoLOG) 1 UNIT/0.01 ML (CHARGE PER UNIT) SC SCH ×3 (08:29→18:08)
[2020-06-22] MEDS: ARTIFICIAL TEARS OINT (LACRI-LUBE) 3.5 GM TUBE OU SCH ×3 (08:29→20:27)
[2020-06-22] MEDS: ENOXAPARIN 300 MG/3 ML (LOVENOX) MULTI-DOSE VIAL SQ SCH ×2 (08:32→20:26)
--- NOTE | 2020-06-22 08:44 | Diagnostic Imaging Report ---
Clinical indications: Patient has replacement of orogastric tube. Evaluate ET tube placement. Patient on ventilator. COVID positive. Exam: Portable chest x-ray upright view. Comparisons: Chest x-ray dated 06/21/2020. Findings: ET tube seen in good position. Right IJ central line seen in stable good position. Feeding tube is seen in good position with proximal port overlying the expected region of the gastric body/gastric antrum. There is no significant change to the bilateral lung infiltrates. Cardiac silhouette is within normal limits for portable projection. Pulmonary vasculature is partially obscured. There is interval air distention of the stomach noted. The remainder of this exam shows no significant interval change compared to the prior study of comparison. Impression: 1: ET tube, feeding tube and right IJ central line is seen in good position. 2: There is no significant change to the bilateral lung infiltrates (left side more than the right). Dictated by: Dictated on workstation # [id number]
--- NOTE | 2020-06-22 08:59 | NUR ---
While turning patient supine, pt's ET tube and OG tube became dislodged. Dr. Hale notified of need for reintubation. Dr. Hale responded immediately and patient reintubated with 8.0 ET tube. Addendum: 06/22/20 at 0907 by RAMIREZ KUO RT ET tube placement 23 at teeth
--- NOTE | 2020-06-22 11:44 | Physical Therapy Progress Note ---
Therapy Progress Note PROM B U/LE performed in all available planes. ALEKSANDR SLAUGHTER PT Jun 22, 2020 11:44
--- NOTE | 2020-06-22 15:41 | NUR ---
During care rounds, it was noted that TF were still being held at this time. Plan of care is restart tube feeds on 06/23, at rate of 15ml/hr with 25ml water flushes q4h. Will continue to follow and reassess as pt needs, intake, and status change. Nivia Murphy, MS RD LD
[2020-06-23] VITALS (30 sets, daily range): BP systolic 91–138; BP diastolic 55–84
[2020-06-23] MEDS: inSUlin ASPART (NovoLOG) 1 UNIT/0.01 ML (CHARGE PER UNIT) SC SCH ×4 (00:26→17:56)
[2020-06-23] MEDS: RT-ALBUTEROL INHALER HFA (VENTOLIN HFA) 18 GM IH SCH ×6 (01:57→22:57)
[2020-06-23] MEDS: PROPOFOL DRIP (ICU) 100 ML IV SCH ×2 (02:43→02:44)
[2020-06-23 04:25] LABS: ABG BASE EXCESS 10.5 MMOL/L (-2.5-2.5); ABG OXYGEN SATURATION 96 % (94-100); ABG PCO2 51 MMHG (35-45); ABG PH 7.45 (7.37-7.43); ABG PO2 83 MMHG (79-93); ABG TCO2 36.6 MMOL/L (21.0-31.0); BASOPHILS # (AUTO) 0.1 10^3/uL (0.0-0.1); BASOPHILS % (AUTO) 1 % (0-10); EOSINOPHILS # (AUTO) 0.2 10^3/uL (0.0-0.3); EOSINOPHILS % (AUTO) 4 % (0-10); HEMATOCRIT 32 % (35-52); LYMPHOCYTES # (AUTO) 1.2 10^3/uL (1.0-4.0); LYMPHOCYTES % (AUTO) 20 % (12-44); MEAN CORPUSCULAR HEMOGLOBIN 27 pg (25-34); MEAN CORPUSCULAR HGB CONC 31 g/dL (32-36); MEAN CORPUSCULAR VOLUME 88 fL (80-99); MEAN PLATELET VOLUME 11.2 fL (9.0-12.2); MONOCYTES # (AUTO) 0.4 10^3/uL (0.0-1.0); MONOCYTES % (AUTO) 6 % (0-12); NEUTROPHILS # (AUTO) 3.4 10^3/uL (1.8-7.8); NEUTROPHILS % (AUTO) 57 % (42-75); PLATELET COUNT 284 10^3/uL (130-400)
[2020-06-23 04:26] LABS: ALLENS TEST POSITIVE; INSPIRED O2 35; PATIENT TEMP 37; VENTILATOR YES
[2020-06-23 04:31] LABS: CHLORIDE 95 MMOL/L (98-107); POTASSIUM 3.5 MMOL/L (3.6-5.0); SODIUM 139 MMOL/L (135-145)
[2020-06-23 04:32] LABS: CALCIUM 8.1 MG/DL (8.5-10.1)
[2020-06-23 04:33] LABS: GLUCOSE 96 MG/DL (70-105)
[2020-06-23 04:34] LABS: CARBON DIOXIDE 32 MMOL/L (21-32)
[2020-06-23 04:36] LABS: PHOSPHORUS 3.2 MG/DL (2.3-4.7)
[2020-06-23 04:37] LABS: CREATININE SERUM 0.52 MG/DL (0.60-1.30); GFR ESTIMATED > 60
[2020-06-23 04:38] LABS: BUN/CREATININE RATIO 21
[2020-06-23] MEDS: POTASSIUM CL 10MEQ/50ML IVPB 50 ML IV SCH ×6 (04:38→07:58)
[2020-06-23 04:39] LABS: MAGNESIUM 1.7 MG/DL (1.6-2.4)
[2020-06-23] MEDS: MAGNESIUM 1 GM/100 ML IVPB 100 ML IV SCH ×3 (04:39→06:49)
[2020-06-23] MEDS: KCL 20 MEQ TAB (K-DUR) PO SCH (04:39)
--- NOTE | 2020-06-23 04:50 | Pulmonary Progress Note ---
Subjective Time Seen by a Provider: 04:48 Sepsis Event Evaluation Height, Weight, BMI Height: '" Weight: lbs. oz. kg; 30.00 BMI Method: Focused Exam Time of Focused Exam: 20:35 Exam Exam Vital Signs Date Time Temp Pulse Resp B/P (MAP) Pulse Ox O2 Delivery O2 Flow Rate FiO2 06/23/20 04:12 37.0 06/23/20 02:44 104 138/73 06/23/20 02:43 104 138/73 06/23/20 02:43 Mechanical Ventilator 35.00 06/23/20 02:00 104 25 138/73 (94) 98 Mechanical Ventilator 40.00 06/23/20 01:57 89 22 96 40 06/23/20 01:00 83 06/23/20 01:00 87 27 124/72 (89) 97 Mechanical Ventilator 40.00 06/23/20 00:00 86 22 125/63 (83) 94 Mechanical Ventilator 40.00 06/22/20 23:16 37.1 06/22/20 23:00 83 21 156/68 (97) 92 Mechanical Ventilator 40.00 06/22/20 22:24 89 22 96 40 06/22/20 22:00 83 22 121/71 (88) 93 Mechanical Ventilator 40.00 06/22/20 21:00 Mechanical Ventilator 40 06/22/20 21:00 87 21 127/68 (87) 93 Mechanical Ventilator 40.00 06/22/20 20:52 Mechanical Ventilator 40.00 06/22/20 20:26 104 125/70 06/22/20 20:25 104 125/70 06/22/20 20:00 75 21 124/66 (85) 91 Mechanical Ventilator 40.00 06/22/20 20:00 36.9 06/22/20 19:02 104 24 98 40 06/22/20 19:00 76 06/22/20 19:00 75 21 125/70 (88) 92 Mechanical Ventilator 40.00 06/22/20 18:00 88 20 135/69 (91) 94 Mechanical Ventilator 40.00 06/22/20 17:00 71 22 127/72 (90) 96 Mechanical Ventilator 40.00 06/22/20 16:00 67 21 118/66 (83) 93 Mechanical Ventilator 40.00 06/22/20 15:03 89 26 95 40 06/22/20 15:00 80 21 121/72 (88) 95 Mechanical Ventilator 40.00 06/22/20 14:00 70 21 100/66 (77) 94 Mechanical Ventilator 40.00 06/22/20 13:00 72 06/22/20 13:00 74 22 95/60 (72) 95 Mechanical Ventilator 40.00 06/22/20 12:00 72 17 102/67 (79) 94 Mechanical Ventilator 40.00 06/22/20 11:00 75 22 98/69 (79) 93 Mechanical Ventilator 40.00 06/22/20 10:29 76 22 96 50 06/22/20 10:00 78 22 114/74 (87) 96 Mechanical Ventilator 40.00 06/22/20 09:00 Mechanical Ventilator 40 06/22/20 09:00 74 22 122/74 (90) 95 Mechanical Ventilator 40.00 06/22/20 08:37 75 06/22/20 08:00 95 17 120/86 (97) 89 Mechanical Ventilator 40.00 06/22/20 08:00 36.4 06/22/20 07:00 77 21 110/67 (81) 92 Mechanical Ventilator 40.00 06/22/20 07:00 75 06/22/20 06:00 81 21 108/69 (82) 91 Mechanical Ventilator 40.00 06/22/20 05:00 80 21 118/77 (91) Mechanical Ventilator 40.00 I & O 06/23/20 07:00 Intake Total 250 ml Output Total 3150 ml Balance -2900 ml Height & Weight Height: '" Weight: lbs. oz. kg; 30.00 BMI Method: General Appearance: Other (intubated and sedated) HEENT: PERRL/EOMI, Other (Very dry oral mucosa noted) Neck: Full Range of Motion Respiratory: Crackles, Decreased Breath Sounds Cardiovascular: Regular Rate, Rhythm Capillary Refill: Less Than 3 Seconds Peripheral Pulses: 2+ Radial Pulses (R), 2+ Radial Pulses (L) Extremity: Normal Inspection Skin: Normal Color, Warm/Dry Results Lab Laboratory Tests 06/22/20 03:10 06/23/20 04:10 Assessment/Plan Assessment/Plan Acute respiratory failure secondary to COVID 19 -Intubated 06/09 - PEEP to 14 -Continue ventilator care. -Continue proning patient -Currently on Propofol, Fentanyl COVID 19- PNA -Remdesivir 06/08 -Monitor LFTs with daily CMPs - Zosyn changed to Merrem 06/15 -Mucomyst per ET tube with albuterol txs secondary to mucous plugging -Mucinex -CVP -Continue Decadron 6mg IV -Increase Decadron to 20mg daily -Start Lasix q 12 -Will add 20meq of KCL to IVF while on Lasix -Start theraputic dose lovenox secondary to elevated DDImer -CTA of chest - nondiagnostic for PE secondary to poor timing -Check PCT, and BNP Elevated LFTs with elevated Bili -Monitor HOWARD YOU DO Jun 23, 2020 04:50
[2020-06-23] MEDS: fentaNYL 1,250 MCG/NS 250 ML DRIP IV SCH ×2 (04:53→21:11)
[2020-06-23] MEDS ORDERED: NS (IVPB) 100 ML ONE (05:12)
[2020-06-23] MEDS ORDERED: MIDAZOLAM FOR DRIPS 10 MG/2 ML VIAL ONE (05:12)
[2020-06-23] MEDS: MIDAZOLAM INJECTION FOR DRIPS 50 MG in NS (IVPB) 90 ML IV SCH ×2 (05:38→15:32)
[2020-06-23] MEDS: FUROSEMIDE 40 MG/4 ML INJ (LASIX) IVP SCH ×2 (05:42→18:07)
[2020-06-23] MEDS: guaiFENesin SYRUP 100 MG/5 ML 10 ML (ROBITUSSIN SF) PO SCH ×2 (07:58→19:49)
[2020-06-23] MEDS: ENOXAPARIN 300 MG/3 ML (LOVENOX) MULTI-DOSE VIAL SQ SCH ×2 (07:59→21:11)
[2020-06-23] MEDS: PANTOPRAZOLE 40 MG (PROTONIX) VIAL IV SCH (07:59)
[2020-06-23] MEDS: meTOprolol TARTRATE 25 MG (LOPRESSOR) TABLET PO SCH ×2 (07:59→19:50)
[2020-06-23] MEDS: ARTIFICIAL TEARS OINT (LACRI-LUBE) 3.5 GM TUBE OU SCH ×3 (07:59→19:50)
--- NOTE | 2020-06-23 10:07 | Diagnostic Imaging Report ---
INDICATION: Covid positive, mechanical ventilation. TECHNIQUE: Single view chest 7:27 AM. CORRELATION STUDY: 06/22/2020 FINDINGS: Right IJ central line, endotracheal tube and gastric tube all remain in place. Heart size and mediastinum are stable. There are extensive patchy areas of infiltrate throughout both lung olsen. Findings are relatively stable to perhaps minimally improved on the left but overall appear increased at the right lung base and to lesser degree upper lung. IMPRESSION: 1. Stable support lines and tubes. 2. Extensive bilateral pulmonary infiltrates. Stable to perhaps minimally improved on the left and appear to be adversely changed on the right. Dictated by: Dictated on workstation # [id number]
--- NOTE | 2020-06-23 11:05 | Physical Therapy Progress Note ---
Therapy Progress Note Patient intubated. Will continue to follow. NATY GREEN PT Jun 23, 2020 11:05
[2020-06-24] VITALS (29 sets, daily range): BP systolic 88–142; BP diastolic 49–81
[2020-06-24] MEDS: MIDAZOLAM INJECTION FOR DRIPS 50 MG in NS (IVPB) 90 ML IV SCH ×3 (00:32→20:18)
[2020-06-24] MEDS: inSUlin ASPART (NovoLOG) 1 UNIT/0.01 ML (CHARGE PER UNIT) SC SCH ×4 (00:33→17:53)
[2020-06-24] MEDS: RT-ALBUTEROL INHALER HFA (VENTOLIN HFA) 18 GM IH SCH ×6 (02:32→22:17)
[2020-06-24] MEDS: fentaNYL 1,250 MCG/NS 250 ML DRIP IV SCH ×4 (03:25→22:07)
[2020-06-24] MEDS: POTASSIUM CHLORIDE INJ 20 MEQ in LACTATED RINGERS 1,000 ML IV SCH (03:25)
[2020-06-24 03:31] LABS: BASOPHILS % (AUTO) 1 % (0-10); EOSINOPHILS # (AUTO) 0.2 10^3/uL (0.0-0.3); EOSINOPHILS % (AUTO) 4 % (0-10); HEMATOCRIT 33 % (35-52); HEMOGLOBIN 10.3 g/dL (11.5-16.0); LYMPHOCYTES # (AUTO) 1.1 10^3/uL (1.0-4.0); LYMPHOCYTES % (AUTO) 19 % (12-44); MEAN CORPUSCULAR HEMOGLOBIN 27 pg (25-34); MEAN CORPUSCULAR HGB CONC 31 g/dL (32-36); MEAN CORPUSCULAR VOLUME 88 fL (80-99); MEAN PLATELET VOLUME 11.2 fL (9.0-12.2); MONOCYTES # (AUTO) 0.4 10^3/uL (0.0-1.0); MONOCYTES % (AUTO) 6 % (0-12); NEUTROPHILS # (AUTO) 3.8 10^3/uL (1.8-7.8); NEUTROPHILS % (AUTO) 63 % (42-75); PLATELET COUNT 290 10^3/uL (130-400)
[2020-06-24 03:31] LABS: ABG BASE EXCESS 10.5 MMOL/L (-2.5-2.5); ABG OXYGEN SATURATION 95 % (94-100); ABG PCO2 51 MMHG (35-45); ABG PH 7.45 (7.37-7.43); ABG PO2 81 MMHG (79-93); ABG TCO2 36.6 MMOL/L (21.0-31.0); ALLENS TEST POSITIVE; INSPIRED O2 50; PATIENT TEMP 37.1; VENTILATOR YES
[2020-06-24 03:42] LABS: CHLORIDE 95 MMOL/L (98-107); POTASSIUM 3.9 MMOL/L (3.6-5.0); SODIUM 138 MMOL/L (135-145)
[2020-06-24 03:43] LABS: CALCIUM 8.3 MG/DL (8.5-10.1)
[2020-06-24 03:44] LABS: GLUCOSE 102 MG/DL (70-105); TRIGLYCERIDES 309 MG/DL (<150)
[2020-06-24 03:45] LABS: CARBON DIOXIDE 31 MMOL/L (21-32)
[2020-06-24 03:47] LABS: CREATININE SERUM 0.55 MG/DL (0.60-1.30); GFR ESTIMATED > 60; PHOSPHORUS 3.4 MG/DL (2.3-4.7)
[2020-06-24 03:48] LABS: BUN/CREATININE RATIO 20
[2020-06-24 03:50] LABS: MAGNESIUM 2.1 MG/DL (1.6-2.4)
--- NOTE | 2020-06-24 05:02 | Pulmonary Progress Note ---
Subjective Time Seen by a Provider: 04:58 Subjective/Events-last exam Pt appears to be doing better. Sepsis Event Evaluation Height, Weight, BMI Height: '" Weight: lbs. oz. kg; 30.00 BMI Method: Focused Exam Time of Focused Exam: 20:35 Exam Exam Vital Signs Date Time Temp Pulse Resp B/P (MAP) Pulse Ox O2 Delivery O2 Flow Rate FiO2 06/24/20 04:15 37.6 06/24/20 04:00 87 22 136/77 (96) 91 Mechanical Ventilator 50.00 06/24/20 03:33 37.1 91 Mechanical Ventilator 50.00 06/24/20 03:00 85 22 130/75 (93) 92 Mechanical Ventilator 50.00 06/24/20 02:32 85 22 94 45 06/24/20 02:00 87 21 117/75 (89) 94 Mechanical Ventilator 50.00 06/24/20 01:36 94 50.00 06/24/20 01:20 86 Mechanical Ventilator 40.00 06/24/20 01:00 80 06/24/20 01:00 80 21 124/78 (93) 91 Mechanical Ventilator 40.00 06/24/20 00:36 91 Mechanical Ventilator 40.00 06/24/20 00:32 77 127/71 06/24/20 00:03 37.0 06/24/20 00:00 84 21 112/74 (87) 93 Mechanical Ventilator 45.00 06/23/20 23:00 81 27 127/78 (94) 92 Mechanical Ventilator 45.00 06/23/20 22:57 82 22 92 45 06/23/20 22:00 84 28 111/66 (81) 92 Mechanical Ventilator 45.00 06/23/20 21:00 92 Mechanical Ventilator 45 06/23/20 21:00 83 21 115/73 (87) 92 Mechanical Ventilator 45.00 06/23/20 20:11 91 22 116/75 (89) 92 Mechanical Ventilator 45.00 06/23/20 20:03 36.3 06/23/20 20:00 88 Mechanical Ventilator 40.00 06/23/20 20:00 87 21 116/75 (89) 91 Mechanical Ventilator 40.00 06/23/20 19:00 86 06/23/20 19:00 84 21 117/75 (89) 91 Mechanical Ventilator 40.00 11/7/20 18:40 89 22 92 40 06/23/20 18:00 86 21 120/76 (91) 92 Mechanical Ventilator 35.00 06/23/20 17:00 86 21 119/73 (88) 92 Mechanical Ventilator 35.00 06/23/20 16:46 89 22 90 40 06/23/20 16:00 85 22 121/75 (90) 93 Mechanical Ventilator 35.00 06/23/20 15:32 86 22 126/79 06/23/20 15:00 93 21 125/84 (98) 94 Mechanical Ventilator 35.00 06/23/20 14:00 91 20 101/55 (70) 93 Mechanical Ventilator 35.00 06/23/20 13:00 90 21 94/60 (71) 95 Mechanical Ventilator 35.00 06/23/20 12:39 86 06/23/20 12:36 36.4 06/23/20 12:00 86 21 97/61 (73) 95 Mechanical Ventilator 35.00 06/23/20 11:00 89 21 93/65 (74) 93 Mechanical Ventilator 35.00 06/23/20 10:40 84 22 95 40 06/23/20 10:00 86 33 91/65 (74) 93 Mechanical Ventilator 35.00 06/23/20 09:00 90 14 100/66 (77) 92 Mechanical Ventilator 35.00 06/23/20 09:00 Mechanical Ventilator 40 06/23/20 08:00 76 38 102/57 (72) 91 Mechanical Ventilator 35.00 06/23/20 07:00 83 06/23/20 07:00 81 21 115/62 (79) 93 Mechanical Ventilator 35.00 06/23/20 06:00 85 22 123/72 (89) 91 Mechanical Ventilator 35.00 06/23/20 05:38 104 25 138/73 06/23/20 05:00 93 26 134/65 (88) 95 Mechanical Ventilator 35.00 I & O 06/24/20 07:00 Intake Total 490 ml Output Total 2700 ml Balance -2210 ml Height & Weight Height: '" Weight: lbs. oz. kg; 30.00 BMI Method: General Appearance: Other (intubated and sedated) HEENT: PERRL/EOMI, Other (Very dry oral mucosa noted) Neck: Full Range of Motion Respiratory: Crackles, Decreased Breath Sounds Cardiovascular: Regular Rate, Rhythm Capillary Refill: Less Than 3 Seconds Peripheral Pulses: 2+ Radial Pulses (R), 2+ Radial Pulses (L) Extremity: Normal Inspection Skin: Normal Color, Warm/Dry Results Lab Laboratory Tests 06/23/20 04:10 06/24/20 03:15 Assessment/Plan Assessment/Plan Acute respiratory failure secondary to COVID 19 -Intubated 06/09 - PEEP is 12 -Continue ventilator care. -Continue proning patient -Currently on Versed, Fentanyl -Decrease Lasix to daily COVID 19- PNA -Remdesivir 06/08 -Monitor LFTs with daily CMPs - Zosyn changed to Merrem 06/15 -Now off Abx -Mucomyst per ET tube with albuterol txs secondary to mucous plugging -Mucinex -CVP -Continue Decadron 6mg IV -Increase Decadron to 20mg daily -Start theraputic dose lovenox secondary to elevated DDImer -CTA of chest - nondiagnostic for PE secondary to poor timing -Check PCT, and BNP Elevated LFTs with elevated Bili -Monitor HOWARD YOU DO Jun 24, 2020 05:02
[2020-06-24] MEDS: MAGNESIUM 1 GM/100 ML IVPB 100 ML IV SCH (06:05)
[2020-06-24] MEDS: POTASSIUM CL 10MEQ/50ML IVPB 50 ML IV SCH (06:05)
[2020-06-24] MEDS: KCL 20 MEQ TAB (K-DUR) PO SCH (06:06)
[2020-06-24] MEDS: FUROSEMIDE 40 MG/4 ML INJ (LASIX) IVP SCH (06:25)
[2020-06-24] MEDS: PANTOPRAZOLE 40 MG (PROTONIX) VIAL IV SCH (08:41)
[2020-06-24] MEDS: guaiFENesin SYRUP 100 MG/5 ML 10 ML (ROBITUSSIN SF) PO SCH ×2 (08:41→20:18)
[2020-06-24] MEDS: ARTIFICIAL TEARS OINT (LACRI-LUBE) 3.5 GM TUBE OU SCH ×3 (08:42→20:17)
[2020-06-24] MEDS: ENOXAPARIN 300 MG/3 ML (LOVENOX) MULTI-DOSE VIAL SQ SCH ×2 (08:42→20:18)
[2020-06-24] MEDS: meTOprolol TARTRATE 25 MG (LOPRESSOR) TABLET PO SCH ×2 (08:42→20:17)
[2020-06-24] MEDS: ACETAMINOPHEN 325 MG TABLET PO PRN (08:59)
--- NOTE | 2020-06-24 11:20 | NUR ---
OG residual 15ml at this time
--- NOTE | 2020-06-24 14:30 | Diagnostic Imaging Report ---
EXAM: Follow-up, on ventilator, COVID positive EXAMINATION: Chest 06/24/2020 COMPARISON: 06/23/2020 FINDINGS: Diffuse increased airspace opacities throughout both lungs, worsened from previous imaging. No significant effusions or pneumothorax. ET tube tip unremarkable. Feeding tube is coursing beneath the diaphragm. A right PICC line tip is in the SVC. IMPRESSION: 1. Worsening appearance of both lungs. Dictated by: Dictated on workstation # [id number]
[2020-06-25] VITALS (33 sets, daily range): BP systolic 92–166; BP diastolic 54–91
[2020-06-25] MEDS: inSUlin ASPART (NovoLOG) 1 UNIT/0.01 ML (CHARGE PER UNIT) SC SCH ×4 (00:34→17:59)
[2020-06-25] MEDS: ACETAMINOPHEN 325 MG TABLET PO PRN ×2 (00:38→10:06)
[2020-06-25] MEDS: RT-ALBUTEROL INHALER HFA (VENTOLIN HFA) 18 GM IH SCH ×6 (02:22→22:28)
[2020-06-25 04:22] LABS: BASOPHILS % (AUTO) 1 % (0-10); EOSINOPHILS # (AUTO) 0.3 10^3/uL (0.0-0.3); EOSINOPHILS % (AUTO) 5 % (0-10); HEMATOCRIT 32 % (35-52); HEMOGLOBIN 9.8 g/dL (11.5-16.0); LYMPHOCYTES % (AUTO) 16 % (12-44); MEAN CORPUSCULAR HEMOGLOBIN 27 pg (25-34); MEAN CORPUSCULAR HGB CONC 31 g/dL (32-36); MEAN CORPUSCULAR VOLUME 88 fL (80-99); MONOCYTES # (AUTO) 0.3 10^3/uL (0.0-1.0); MONOCYTES % (AUTO) 5 % (0-12); NEUTROPHILS # (AUTO) 4.1 10^3/uL (1.8-7.8); NEUTROPHILS % (AUTO) 69 % (42-75); PLATELET COUNT 285 10^3/uL (130-400)
[2020-06-25 04:30] LABS: ABG BASE EXCESS 9.2 MMOL/L (-2.5-2.5); ABG OXYGEN SATURATION 93 % (94-100); ABG PCO2 51 MMHG (35-45); ABG PH 7.44 (7.37-7.43); ABG PO2 73 MMHG (79-93); ABG TCO2 35.2 MMOL/L (21.0-31.0); ALLENS TEST POSITIVE; INSPIRED O2 35; PATIENT TEMP 37.3; VENTILATOR YES
[2020-06-25 04:36] LABS: CHLORIDE 96 MMOL/L (98-107); POTASSIUM 3.6 MMOL/L (3.6-5.0); SODIUM 137 MMOL/L (135-145)
[2020-06-25 04:37] LABS: CALCIUM 8.2 MG/DL (8.5-10.1)
[2020-06-25 04:38] LABS: GLUCOSE 99 MG/DL (70-105)
[2020-06-25 04:39] LABS: CARBON DIOXIDE 29 MMOL/L (21-32)
[2020-06-25 04:42] LABS: CREATININE SERUM 0.54 MG/DL (0.60-1.30); GFR ESTIMATED > 60
[2020-06-25 04:43] LABS: BUN/CREATININE RATIO 22
--- NOTE | 2020-06-25 05:15 | Pulmonary Progress Note ---
Subjective Time Seen by a Provider: 05:13 Subjective/Events-last exam PT appears to be doing better. Sepsis Event Evaluation Height, Weight, BMI Height: '" Weight: lbs. oz. kg; 30.00 BMI Method: Focused Exam Time of Focused Exam: 20:35 Exam Exam Vital Signs Date Time Temp Pulse Resp B/P (MAP) Pulse Ox O2 Delivery O2 Flow Rate FiO2 06/25/20 04:13 37.3 92 Mechanical Ventilator 35.00 06/25/20 03:00 89 22 124/66 (85) 96 Mechanical Ventilator 40.00 06/25/20 02:22 95 22 96 40 06/25/20 02:00 87 21 124/62 (82) 96 Mechanical Ventilator 40.00 06/25/20 01:08 37.3 06/25/20 01:00 100 06/25/20 01:00 91 21 122/69 (86) 96 Mechanical Ventilator 40.00 06/25/20 00:38 37.8 06/25/20 00:33 37.8 104 34 143/90 (107) 93 Mechanical Ventilator 40.00 06/24/20 23:00 86 22 126/74 (91) 95 Mechanical Ventilator 40.00 06/24/20 22:17 85 22 93 50 06/24/20 22:00 83 22 129/74 (92) 95 Mechanical Ventilator 40.00 06/24/20 21:00 93 Mechanical Ventilator 40 06/24/20 21:00 84 21 133/74 (93) 92 Mechanical Ventilator 40.00 06/24/20 20:33 Mechanical Ventilator 40.00 06/24/20 20:18 142/78 06/24/20 20:16 36.7 87 23 142/78 (99) 94 Mechanical Ventilator 45.00 06/24/20 20:00 80 21 142/78 (99) 93 Mechanical Ventilator 50.00 06/24/20 19:22 80 22 94 50 06/24/20 19:00 80 06/24/20 19:00 80 21 122/68 (86) 93 Mechanical Ventilator 50.00 06/24/20 18:06 36.3 Mechanical Ventilator 50.00 06/24/20 18:00 84 21 138/73 (94) 95 Mechanical Ventilator 50.00 06/24/20 17:00 81 21 138/75 (96) 93 Mechanical Ventilator 50.00 06/24/20 16:00 92 29 94 Mechanical Ventilator 50.00 06/24/20 15:49 36.8 Mechanical Ventilator 50.00 06/24/20 15:05 94 22 94 50 06/24/20 15:00 92 29 132/81 (98) 94 Mechanical Ventilator 50.00 06/24/20 14:00 94 23 99/56 (70) 94 Mechanical Ventilator 50.00 06/24/20 13:00 92 06/24/20 13:00 89 22 95/58 (70) 94 Mechanical Ventilator 50.00 06/24/20 12:16 88 22 95 50 06/24/20 12:00 92 28 91/49 (63) 94 Mechanical Ventilator 50.00 06/24/20 11:22 37.1 Mechanical Ventilator 50.00 06/24/20 11:00 95 21 100/55 (70) 91 Mechanical Ventilator 50.00 06/24/20 10:23 99 22 98/68 06/24/20 10:00 99 22 98/68 (78) 92 Mechanical Ventilator 50.00 06/24/20 09:00 101 22 114/65 (81) 94 Mechanical Ventilator 50.00 06/24/20 08:59 37.8 06/24/20 08:57 37.8 Mechanical Ventilator 50.00 06/24/20 08:45 95 22 91 45 06/24/20 08:40 93 Mechanical Ventilator 50 06/24/20 08:00 90 21 129/78 (95) 93 Mechanical Ventilator 50.00 06/24/20 07:46 36.6 06/24/20 07:00 89 20 117/77 (90) 92 Mechanical Ventilator 50.00 06/24/20 07:00 87 06/24/20 06:00 86 20 120/70 (87) 91 Mechanical Ventilator 50.00 I & O 06/25/20 07:00 Intake Total 1337 ml Output Total 1655 ml Balance -318 ml Height & Weight Height: '" Weight: lbs. oz. kg; 30.00 BMI Method: General Appearance: Other (intubated and sedated) HEENT: PERRL/EOMI, Other (Very dry oral mucosa noted) Neck: Full Range of Motion Respiratory: Crackles, Decreased Breath Sounds Cardiovascular: Regular Rate, Rhythm Capillary Refill: Less Than 3 Seconds Peripheral Pulses: 2+ Radial Pulses (R), 2+ Radial Pulses (L) Extremity: Normal Inspection Skin: Normal Color, Warm/Dry Results Lab Laboratory Tests 06/24/20 03:15 06/25/20 04:10 Assessment/Plan Assessment/Plan Acute respiratory failure secondary to COVID 19 -Intubated 06/09 - PEEP is 12 - Decrease to 10 -Continue ventilator care. -Continue proning patient -Currently on Versed, Fentanyl -Decrease Lasix to daily COVID 19- PNA -Remdesivir 06/08 -Monitor LFTs with daily CMPs - Zosyn changed to Merrem 06/15 -Now off Abx -Mucomyst per ET tube with albuterol txs secondary to mucous plugging -Mucinex -CVP -Continue Decadron 6mg IV -Start theraputic dose lovenox secondary to elevated DDImer -CTA of chest - nondiagnostic for PE secondary to poor timing -Check PCT, and BNP Elevated LFTs with elevated Bili -Monitor HOWARD YOU DO Jun 25, 2020 05:15
[2020-06-25] MEDS: fentaNYL 1,250 MCG/NS 250 ML DRIP IV SCH ×3 (05:27→20:33)
[2020-06-25] MEDS: MAGNESIUM 1 GM/100 ML IVPB 100 ML IV SCH (05:29)
[2020-06-25] MEDS: KCL 20 MEQ TAB (K-DUR) PO SCH (05:29)
[2020-06-25] MEDS: MIDAZOLAM INJECTION FOR DRIPS 50 MG in NS (IVPB) 90 ML IV SCH ×2 (06:10→15:58)
[2020-06-25] MEDS: POTASSIUM CL 10MEQ/50ML IVPB 50 ML IV SCH ×3 (06:12→07:45)
[2020-06-25] MEDS: FUROSEMIDE 40 MG/4 ML INJ (LASIX) IVP SCH (06:13)
--- NOTE | 2020-06-25 07:40 | Diagnostic Imaging Report ---
INDICATION: COVID positive, respiratory distress. Single AP view of the chest is obtained with comparison made to study of 06/24/2020. Extensive bilateral airspace disease is again identified. There may be slight improvement of aeration in the upper lobes. Endotracheal tube is in place with tip at the level of the mid trachea. Nasogastric tube reaches the upper stomach. There is no evidence of pneumothorax. IMPRESSION: Extensive bilateral airspace disease showing mild overall improvement in the upper lobes, bilaterally. Dictated by: Dictated on workstation # [id number]
[2020-06-25] MEDS: POTASSIUM CHLORIDE INJ 20 MEQ in LACTATED RINGERS 1,000 ML IV SCH ×2 (07:42→12:09)
[2020-06-25] MEDS: PANTOPRAZOLE 40 MG (PROTONIX) VIAL IV SCH (07:45)
[2020-06-25] MEDS: guaiFENesin SYRUP 100 MG/5 ML 10 ML (ROBITUSSIN SF) PO SCH ×2 (07:45→20:22)
[2020-06-25] MEDS: ENOXAPARIN 300 MG/3 ML (LOVENOX) MULTI-DOSE VIAL SQ SCH ×2 (07:45→20:24)
[2020-06-25] MEDS: ARTIFICIAL TEARS OINT (LACRI-LUBE) 3.5 GM TUBE OU SCH ×3 (07:46→20:22)
[2020-06-25] MEDS: meTOprolol TARTRATE 25 MG (LOPRESSOR) TABLET PO SCH ×2 (07:47→20:22)
--- NOTE | 2020-06-25 08:07 | Physical Therapy Progress Note ---
Therapy Progress Note Patient remains sedated and intubated. PT will continue to monitor patient status and initiate treatment when patient is medically stable and able to actively participate with skilled therapy. FLORES TANG PT Jun 25, 2020 08:07
--- NOTE | 2020-06-25 15:39 | NUR ---
Discussed with Sreekanth WHITE about current TF. Sreekanth states pt is receiving Pulmoc[facility] at 15ml/hr with 25ml water flushes q4h. Recommend conservative increases of 10ml q12h toward goal rate of 40ml/hr. Will continue to follow and reassess as pt needs, intake, and status change. Nivia Murphy, MS RD LD [phone]
[2020-06-26] VITALS (30 sets, daily range): BP systolic 93–163; BP diastolic 49–89
[2020-06-26] MEDS: inSUlin ASPART (NovoLOG) 1 UNIT/0.01 ML (CHARGE PER UNIT) SC SCH ×4 (00:03→17:15)
[2020-06-26] MEDS: ACETAMINOPHEN 325 MG TABLET PO PRN ×2 (00:08→08:43)
[2020-06-26] MEDS: MIDAZOLAM INJECTION FOR DRIPS 50 MG in NS (IVPB) 90 ML IV SCH ×4 (00:24→21:29)
[2020-06-26] MEDS: fentaNYL 1,250 MCG/NS 250 ML DRIP IV SCH ×4 (02:07→21:29)
[2020-06-26] MEDS: RT-ALBUTEROL INHALER HFA (VENTOLIN HFA) 18 GM IH SCH ×6 (02:18→22:41)
[2020-06-26 02:26] LABS: ABG BASE EXCESS 8.8 MMOL/L (-2.5-2.5); ABG OXYGEN SATURATION 36 % (94-100); ABG PCO2 61 MMHG (35-45); ABG PH 7.37 (7.37-7.43); ABG TCO2 35.9 MMOL/L (21.0-31.0)
[2020-06-26 02:29] LABS: ALLENS TEST POSITIVE; INSPIRED O2 75; VENTILATOR YES
[2020-06-26 02:29] LABS: BASOPHILS % (AUTO) 0 % (0-10); EOSINOPHILS # (AUTO) 0.2 10^3/uL (0.0-0.3); EOSINOPHILS % (AUTO) 2 % (0-10); HEMATOCRIT 31 % (35-52); HEMOGLOBIN 9.6 g/dL (11.5-16.0); LYMPHOCYTES # (AUTO) 0.9 10^3/uL (1.0-4.0); LYMPHOCYTES % (AUTO) 11 % (12-44); MEAN CORPUSCULAR HEMOGLOBIN 27 pg (25-34); MEAN CORPUSCULAR HGB CONC 31 g/dL (32-36); MEAN CORPUSCULAR VOLUME 88 fL (80-99); MEAN PLATELET VOLUME 11.3 fL (9.0-12.2); MONOCYTES # (AUTO) 0.4 10^3/uL (0.0-1.0); MONOCYTES % (AUTO) 5 % (0-12); NEUTROPHILS % (AUTO) 78 % (42-75); PLATELET COUNT 297 10^3/uL (130-400); WHITE BLOOD COUNT 7.6 10^3/uL (4.3-11.0)
[2020-06-26 02:30] LABS: PATIENT TEMP 37.7
[2020-06-26 02:31] LABS: ABG PO2 35 MMHG (79-93)
[2020-06-26 02:37] LABS: BUN/CREATININE RATIO 22; CALCIUM 8.2 MG/DL (8.5-10.1); CARBON DIOXIDE 29 MMOL/L (21-32); CHLORIDE 96 MMOL/L (98-107); CREATININE SERUM 0.58 MG/DL (0.60-1.30); GFR ESTIMATED > 60; GLUCOSE 115 MG/DL (70-105); MAGNESIUM 1.8 MG/DL (1.6-2.4); POTASSIUM 3.7 MMOL/L (3.6-5.0); SODIUM 134 MMOL/L (135-145)
[2020-06-26] MEDS: POTASSIUM CL 10MEQ/50ML IVPB 50 ML IV SCH (02:45)
[2020-06-26] MEDS: MAGNESIUM 1 GM/100 ML IVPB 100 ML IV SCH (02:45)
[2020-06-26] MEDS: KCL 20 MEQ TAB (K-DUR) PO SCH (02:46)
[2020-06-26] MEDS ORDERED: PHARMACY TO DOSE IV SCH (04:45)
[2020-06-26] MEDS ORDERED: VANCOMYCIN INJECTION 1,000 MG in NS (IVPB) 250 ML IV SCH (04:45)
--- NOTE | 2020-06-26 04:48 | Pulmonary Progress Note ---
Subjective Time Seen by a Provider: 04:43 Subjective/Events-last exam Pt is sedated on vent. Sepsis Event Evaluation Height, Weight, BMI Height: '" Weight: lbs. oz. kg; 30.00 BMI Method: Focused Exam Time of Focused Exam: 20:35 Exam Exam Vital Signs Date Time Temp Pulse Resp B/P (MAP) Pulse Ox O2 Delivery O2 Flow Rate FiO2 06/26/20 02:43 37.7 06/26/20 02:18 94 22 94 75 06/26/20 01:00 101 06/26/20 00:25 38.6 06/26/20 00:24 154/72 06/26/20 00:08 38.0 06/26/20 00:03 38.0 06/25/20 22:28 93 27 94 65 06/25/20 20:46 93 Mechanical Ventilator 65 06/25/20 20:34 37.4 Mechanical Ventilator 65.00 06/25/20 19:02 89 22 93 55 06/25/20 19:00 85 06/25/20 18:30 99 30 156/86 (109) 93 Mechanical Ventilator 55.00 06/25/20 18:00 82 21 131/65 (87) 89 Mechanical Ventilator 45.00 06/25/20 17:00 89 27 157/79 (105) 88 Mechanical Ventilator 45.00 06/25/20 16:00 86 21 147/77 (100) 88 Mechanical Ventilator 45.00 06/25/20 15:58 83 22 139/84 06/25/20 15:00 85 22 139/84 (102) 90 Mechanical Ventilator 45.00 06/25/20 14:44 100 22 92 50 06/25/20 14:00 88 20 136/71 (92) 90 Mechanical Ventilator 45.00 06/25/20 13:48 37.4 87 95 45 06/25/20 13:00 90 21 99/61 (74) 94 Mechanical Ventilator 45.00 06/25/20 12:52 93 06/25/20 12:00 92 21 93/56 (68) 95 Mechanical Ventilator 45.00 06/25/20 11:00 89 22 97/54 (68) 95 Mechanical Ventilator 45.00 06/25/20 10:25 90 22 94 45 06/25/20 10:00 87 21 92/54 (67) 93 Mechanical Ventilator 45.00 06/25/20 09:00 94 22 99/66 (77) 93 Mechanical Ventilator 45.00 06/25/20 09:00 93 Mechanical Ventilator 45 06/25/20 08:00 88 21 105/63 (77) 92 Mechanical Ventilator 45.00 06/25/20 08:00 37.4 Mechanical Ventilator 45.00 06/25/20 07:00 92 21 130/91 (104) 95 Mechanical Ventilator 35.00 06/25/20 06:50 111 25 92 35 06/25/20 06:39 88 06/25/20 06:10 96 25 138/81 06/25/20 06:00 96 25 138/81 (100) 95 Mechanical Ventilator 35.00 06/25/20 05:00 92 27 138/73 (94) 93 Mechanical Ventilator 35.00 I & O 06/26/20 07:00 Intake Total 1175 ml Output Total 1825 ml Balance -650 ml Height & Weight Height: '" Weight: lbs. oz. kg; 30.00 BMI Method: General Appearance: Other (intubated and sedated) HEENT: PERRL/EOMI, Other (Very dry oral mucosa noted) Neck: Full Range of Motion Respiratory: Crackles, Decreased Breath Sounds Cardiovascular: Regular Rate, Rhythm Capillary Refill: Less Than 3 Seconds Peripheral Pulses: 2+ Radial Pulses (R), 2+ Radial Pulses (L) Extremity: Normal Inspection Skin: Normal Color, Warm/Dry Results Lab Laboratory Tests 06/25/20 04:10 06/26/20 01:57 Assessment/Plan Assessment/Plan Acute respiratory failure secondary to COVID 19 -Intubated 06/09 - PEEP is 10 -- Increase to 12 -Copious amounts of sputum production and new onset fever -Check sputum culture -Continue ventilator care. -Continue proning patient -Currently on Versed, Fentanyl -Decrease Lasix to daily COVID 19- PNA -Remdesivir 06/08 -Monitor LFTs with daily CMPs - Zosyn changed to Merrem 06/15 -Now off Abx -06/26 Restart Vancomycin and Merem secondary to new onset fevers and copious amounts of sputum production -Repeat castillo cultures. -Mucomyst per ET tube with albuterol txs secondary to mucous plugging -Mucinex -CVP -Continue Decadron 6mg IV -Start theraputic dose lovenox secondary to elevated DDImer -CTA of chest - nondiagnostic for PE secondary to poor timing -Check PCT, and BNP Elevated LFTs with elevated Bili -Monitor HOWARD YOU DO Jun 26, 2020 04:48
[2020-06-26] MEDS ORDERED: NS (IVPB) 250 ML ONE ×2 (04:59→05:34)
[2020-06-26] MEDS ORDERED: VANCOMYCIN 1000 MG/VIAL ONE ×2 (04:59→05:34)
[2020-06-26] MEDS ORDERED: WATER (STERILE) FOR INJECTION 10 ML ONE (05:00)
[2020-06-26] MEDS ORDERED: MEROPENEM 1000 MG (MERREM) VIAL IV ONE (05:00)
[2020-06-26] MEDS ORDERED: MEROPENEM 500 MG VIAL (MERREM) IV ONE (05:05)
[2020-06-26] MEDS: FUROSEMIDE 40 MG/4 ML INJ (LASIX) IVP SCH (05:24)
[2020-06-26] MEDS: MEROPENEM 500 MG in WATER (STERILE) FOR INJECTION 10 ML IV SCH ×4 (05:24→21:29)
[2020-06-26] MEDS ORDERED: VANCOMYCIN 500 MG/VIAL IV ONE (05:35)
[2020-06-26] MEDS: VANCOMYCIN 1250 MG/NS 250 ML IVPB IV SCH ×4 (05:39→17:01)
[2020-06-26 05:43] LABS: CLARITY,URINE TURBID; COLOR,URINE AMBER; GLUCOSE, URINE (UA) NEGATIVE (NEGATIVE); KETONES,URINE 2+ (NEGATIVE); LEUKOCYTE ESTERASE ,URINE TRACE (NEGATIVE); NITRITE,URINE NEGATIVE (NEGATIVE); PROTEIN,URINE 1+ (NEGATIVE)
[2020-06-26 06:00] LABS: AMORPHOUS SEDIMENT,UR FEW AMOR PHOSPHATE /LPF; BACTERIA,URINE TRACE /HPF; BILIRUBIN,URINE 2+ (NEGATIVE); SQUAMOUS EPITHELIAL CELL,UR 0-2 /HPF
[2020-06-26 06:01] LABS: YEAST,URINE LARGE /HPF
--- NOTE | 2020-06-26 08:03 | Physical Therapy Progress Note ---
Therapy Progress Note Patient remains sedated and intubated. PT will continue to monitor patient status and initiate treatment when patient is medically stable and able to actively participate with skilled therapy. FLORES TANG PT Jun 26, 2020 08:03
[2020-06-26] MEDS: guaiFENesin SYRUP 100 MG/5 ML 10 ML (ROBITUSSIN SF) PO SCH ×2 (08:42→19:56)
[2020-06-26] MEDS: ARTIFICIAL TEARS OINT (LACRI-LUBE) 3.5 GM TUBE OU SCH ×3 (08:43→19:56)
[2020-06-26] MEDS: meTOprolol TARTRATE 25 MG (LOPRESSOR) TABLET PO SCH ×2 (08:43→19:56)
[2020-06-26] MEDS: ENOXAPARIN 300 MG/3 ML (LOVENOX) MULTI-DOSE VIAL SQ SCH ×2 (08:44→19:57)
[2020-06-26] MEDS: PANTOPRAZOLE 40 MG (PROTONIX) VIAL IV SCH (08:46)
--- NOTE | 2020-06-26 08:51 | Diagnostic Imaging Report ---
INDICATION: Covid positive, mechanical ventilation. TECHNIQUE: Single view chest at 7:18 AM. CORRELATION STUDY: 06/25/2020. FINDINGS: The endotracheal tube, gastric tube, and right IJ central line all remain in place. The heart size and mediastinal configuration are generally stable. Extensive 5 lobe infiltrate is again demonstrated. This appears more consolidated, particularly in the right mid lung. IMPRESSION: Extensive 5 lobe infiltrate persists and overall appears more consolidated and increased from the previous examination. The report was faxed to Infection Control by malika@8:50 AM. Dictated by: Dictated on workstation # [id number]
--- NOTE | 2020-06-26 10:49 | Physical Therapy Progress Note ---
Therapy Progress Note PROM B U/LE all available ranges. ALEKSANDR SLAUGHTER PT Jun 26, 2020 10:49
[2020-06-26] MEDS: POTASSIUM CHLORIDE INJ 20 MEQ in LACTATED RINGERS 1,000 ML IV SCH (21:32)
[2020-06-27] VITALS (30 sets, daily range): BP systolic 96–142; BP diastolic 56–98
[2020-06-27] MEDS: inSUlin ASPART (NovoLOG) 1 UNIT/0.01 ML (CHARGE PER UNIT) SC SCH ×4 (00:15→18:51)
[2020-06-27 02:27] LABS: BASOPHILS % (AUTO) 0 % (0-10); EOSINOPHILS # (AUTO) 0.2 10^3/uL (0.0-0.3); EOSINOPHILS % (AUTO) 3 % (0-10); HEMATOCRIT 28 % (35-52); HEMOGLOBIN 8.6 g/dL (11.5-16.0); LYMPHOCYTES # (AUTO) 0.8 10^3/uL (1.0-4.0); LYMPHOCYTES % (AUTO) 15 % (12-44); MEAN CORPUSCULAR HEMOGLOBIN 27 pg (25-34); MEAN CORPUSCULAR HGB CONC 31 g/dL (32-36); MEAN CORPUSCULAR VOLUME 87 fL (80-99); MEAN PLATELET VOLUME 10.7 fL (9.0-12.2); MONOCYTES # (AUTO) 0.3 10^3/uL (0.0-1.0); MONOCYTES % (AUTO) 5 % (0-12); NEUTROPHILS # (AUTO) 4.3 10^3/uL (1.8-7.8); NEUTROPHILS % (AUTO) 74 % (42-75); PLATELET COUNT 247 10^3/uL (130-400); WHITE BLOOD COUNT 5.8 10^3/uL (4.3-11.0)
[2020-06-27 02:37] LABS: CHLORIDE 99 MMOL/L (98-107); POTASSIUM 3.6 MMOL/L (3.6-5.0); SODIUM 138 MMOL/L (135-145)
[2020-06-27 02:38] LABS: CALCIUM 8.1 MG/DL (8.5-10.1); GLUCOSE 101 MG/DL (70-105)
[2020-06-27 02:40] LABS: CARBON DIOXIDE 29 MMOL/L (21-32)
[2020-06-27 02:42] LABS: GFR ESTIMATED > 60; PHOSPHORUS 2.4 MG/DL (2.3-4.7)
[2020-06-27 02:43] LABS: BUN/CREATININE RATIO 26
[2020-06-27 02:44] LABS: MAGNESIUM 1.8 MG/DL (1.6-2.4)
[2020-06-27] MEDS: MAGNESIUM 1 GM/100 ML IVPB 100 ML IV SCH (02:46)
[2020-06-27] MEDS: POTASSIUM CL 10MEQ/50ML IVPB 50 ML IV SCH ×5 (02:46→09:16)
[2020-06-27] MEDS: KCL 20 MEQ TAB (K-DUR) PO SCH (02:46)
[2020-06-27] MEDS: RT-ALBUTEROL INHALER HFA (VENTOLIN HFA) 18 GM IH SCH ×6 (02:51→21:22)
[2020-06-27 03:07] LABS: ABG OXYGEN SATURATION 98 % (94-100); ABG PCO2 48 MMHG (35-45); ABG PH 7.44 (7.37-7.43); ABG PO2 95 MMHG (79-93)
[2020-06-27 03:15] LABS: ALLENS TEST POSITIVE; INSPIRED O2 60; PATIENT TEMP 36.2; VENTILATOR YES
[2020-06-27] MEDS: MEROPENEM 500 MG in WATER (STERILE) FOR INJECTION 10 ML IV SCH ×4 (03:54→22:41)
[2020-06-27] MEDS: fentaNYL 1,250 MCG/NS 250 ML DRIP IV SCH ×2 (03:54→11:42)
--- NOTE | 2020-06-27 04:34 | Pulmonary Progress Note ---
Subjective Time Seen by a Provider: 04:30 Subjective/Events-last exam Pt is sedated on vent. Sepsis Event Evaluation Height, Weight, BMI Height: '" Weight: lbs. oz. kg; 30.00 BMI Method: Focused Exam Time of Focused Exam: 20:35 Exam Exam Vital Signs Date Time Temp Pulse Resp B/P (MAP) Pulse Ox O2 Delivery O2 Flow Rate FiO2 06/27/20 03:57 36.2 06/27/20 02:52 82 22 95 60 06/27/20 01:00 79 06/27/20 00:00 36.4 06/26/20 22:53 84 22 96 70 06/26/20 21:35 Mechanical Ventilator 60.00 06/26/20 21:29 102/57 06/26/20 20:02 96 Mechanical Ventilator 70 06/26/20 19:54 36.0 Mechanical Ventilator 70.00 06/26/20 19:00 88 06/26/20 18:00 92 21 121/72 (88) 96 Mechanical Ventilator 70.00 06/26/20 17:35 36.7 06/26/20 17:00 90 21 124/75 (91) 94 Mechanical Ventilator 70.00 06/26/20 17:00 93 21 119/83 06/26/20 16:00 36.6 06/26/20 16:00 111 23 120/69 (86) 96 Mechanical Ventilator 70.00 06/26/20 15:00 93 21 119/83 (95) 94 Mechanical Ventilator 70.00 06/26/20 14:00 92 7 96/49 (65) 94 Mechanical Ventilator 70.00 06/26/20 13:39 93 22 94 70 06/26/20 13:00 96 21 108/57 (74) 95 Mechanical Ventilator 70.00 06/26/20 12:51 95 06/26/20 12:00 95 14 93/52 (66) 94 Mechanical Ventilator 70.00 06/26/20 11:21 37.7 06/26/20 11:00 103 6 93/50 (64) 90 Mechanical Ventilator 70.00 06/26/20 10:39 104 22 95 70 06/26/20 10:00 104 21 108/58 (75) 94 Mechanical Ventilator 70.00 06/26/20 09:49 38.0 06/26/20 09:13 38.0 06/26/20 09:01 116 22 144/86 06/26/20 09:00 120 9 96/65 (75) 94 Mechanical Ventilator 70.00 06/26/20 09:00 94 Mechanical Ventilator 70 06/26/20 08:43 38.4 06/26/20 08:00 121 21 161/89 (113) 93 Mechanical Ventilator 70.00 06/26/20 07:48 38.2 06/26/20 07:00 112 23 145/89 (107) 94 Mechanical Ventilator 70.00 06/26/20 06:52 114 27 94 70 06/26/20 06:47 100 06/26/20 06:00 111 38 159/80 (106) 89 Mechanical Ventilator 70.00 06/26/20 05:37 Mechanical Ventilator 70.00 06/26/20 05:00 103 33 163/87 (112) 96 Mechanical Ventilator 80.00 I & O 06/27/20 07:00 Intake Total 1870 ml Output Total 2050 ml Balance -180 ml Height & Weight Height: '" Weight: lbs. oz. kg; 30.00 BMI Method: General Appearance: Other (intubated and sedated) HEENT: PERRL/EOMI, Other (Very dry oral mucosa noted) Neck: Full Range of Motion Respiratory: Crackles, Decreased Breath Sounds Cardiovascular: Regular Rate, Rhythm Capillary Refill: Less Than 3 Seconds Peripheral Pulses: 2+ Radial Pulses (R), 2+ Radial Pulses (L) Extremity: Normal Inspection Skin: Normal Color, Warm/Dry Results Lab Laboratory Tests 06/26/20 01:57 06/27/20 02:15 Assessment/Plan Assessment/Plan Acute respiratory failure secondary to COVID 19 -Intubated 06/09 - PEEP is 10 -- Increase to 12 -Copious amounts of sputum production and new onset fever -Check sputum culture -Continue ventilator care. -Continue proning patient -Currently on Versed, Fentanyl -Decrease Lasix to daily COVID 19- PNA -Remdesivir 06/08 -Monitor LFTs with daily CMPs - Zosyn changed to Merrem 06/15 -Now off Abx -06/26 Restart Vancomycin and Merem secondary to new onset fevers and copious amounts of sputum production -Repeat castillo cultures. -Mucomyst per ET tube with albuterol txs secondary to mucous plugging -Mucinex -CVP -Continue Decadron 6mg IV -Start theraputic dose lovenox secondary to elevated DDImer -CTA of chest - nondiagnostic for PE secondary to poor timing -Check PCT, and BNP Elevated LFTs with elevated Bili -Monitor HOWARD YOU DO Jun 27, 2020 04:34
[2020-06-27] MEDS ORDERED: FUROSEMIDE 40 MG/4 ML INJ (LASIX) IVP ONE (04:45)
[2020-06-27] MEDS: VANCOMYCIN 1250 MG/NS 250 ML IVPB IV SCH ×4 (05:03→18:51)
[2020-06-27] MEDS: FUROSEMIDE 40 MG/4 ML INJ (LASIX) IVP SCH (05:03)
[2020-06-27] MEDS: MIDAZOLAM INJECTION FOR DRIPS 50 MG in NS (IVPB) 90 ML IV SCH ×2 (05:10→23:41)
--- NOTE | 2020-06-27 07:59 | Physical Therapy Progress Note ---
Therapy Progress Note Patient continues to be sedated and ventilated. Will monitor. MYESHA DIEGO PT Jun 27, 2020 07:58
--- NOTE | 2020-06-27 08:21 | Physical Therapy Progress Note ---
Therapy Progress Note Performed (B) UE/LE PROM through multiple planes BELLA OROZCO PT Jun 27, 2020 08:21
--- NOTE | 2020-06-27 08:54 | Diagnostic Imaging Report ---
INDICATION: Shortness of breath, infiltrate, intubated. TECHNIQUE: Single view chest at 7:52 AM. CORRELATION STUDY: 06/26/2020. FINDINGS: An endotracheal tube projects just above the level of the mark. A right IJ central line and gastric tube are present. Extensive 5 lobe infiltrate does persist remaining most consolidated and dense in the right mid lung field. Given difference in technique, this may be minimally improved. The heart size and mediastinal configuration are largely obscured but appear generally stable. IMPRESSION: Extensive 5 lobe infiltrate is again demonstrated. Findings are stable to slightly improved. Dictated by: Dictated on workstation # [id number]
[2020-06-27] MEDS ORDERED: POTASSIUM PHOSPHATE INJ 30 MM in NS (IVPB) 250 ML IV ONE (09:00)
[2020-06-27] MEDS: ENOXAPARIN 300 MG/3 ML (LOVENOX) MULTI-DOSE VIAL SQ SCH ×2 (09:19→20:54)
[2020-06-27] MEDS: meTOprolol TARTRATE 25 MG (LOPRESSOR) TABLET PO SCH ×2 (09:19→20:54)
[2020-06-27] MEDS: guaiFENesin SYRUP 100 MG/5 ML 10 ML (ROBITUSSIN SF) PO SCH ×2 (09:19→20:54)
[2020-06-27] MEDS: ARTIFICIAL TEARS OINT (LACRI-LUBE) 3.5 GM TUBE OU SCH ×3 (09:20→20:54)
[2020-06-27] MEDS: PANTOPRAZOLE 40 MG (PROTONIX) VIAL IV SCH (09:25)
--- NOTE | 2020-06-27 16:30 | NUR ---
CM/SS follow up. CM/SS contacted the patient's daughter to answer questions, give an update, and provide emotional support. The patient stated that she has been calling the hospital to get updates but has not heard from the physician. CM/SS discussed having the option for Face time and Zoom. Fara was pleased to hear this and reports that she would like to. CM/SS stated to ask the nurse. She verbalized understanding. Fara reports that her boss discussed having her filling out paper work for short term disability; therefore she could still get paid. Fara reports that she will work on that. CM/SS will continue to follow.
[2020-06-27] MEDS ORDERED: TROUGH ORDER-PHARMACY XX ONE (17:00)
[2020-06-28] VITALS (30 sets, daily range): BP systolic 92–136; BP diastolic 49–87
[2020-06-28] MEDS: inSUlin ASPART (NovoLOG) 1 UNIT/0.01 ML (CHARGE PER UNIT) SC SCH ×4 (00:09→18:13)
[2020-06-28] MEDS: RT-ALBUTEROL INHALER HFA (VENTOLIN HFA) 18 GM IH SCH ×4 (01:33→14:43)
[2020-06-28] MEDS: fentaNYL 1,250 MCG/NS 250 ML DRIP IV SCH ×4 (02:09→20:43)
[2020-06-28 02:36] LABS: ABG BASE EXCESS 6.6 MMOL/L (-2.5-2.5); ABG OXYGEN SATURATION 95 % (94-100); ABG PCO2 48 MMHG (35-45); ABG PH 7.43 (7.37-7.43); ABG PO2 77 MMHG (79-93); ABG TCO2 32.3 MMOL/L (21.0-31.0)
[2020-06-28 02:36] LABS: BASOPHILS % (AUTO) 0 % (0-10); EOSINOPHILS # (AUTO) 0.3 10^3/uL (0.0-0.3); EOSINOPHILS % (AUTO) 5 % (0-10); HEMATOCRIT 30 % (35-52); HEMOGLOBIN 9.2 g/dL (11.5-16.0); LYMPHOCYTES % (AUTO) 19 % (12-44); MEAN CORPUSCULAR HEMOGLOBIN 27 pg (25-34); MEAN CORPUSCULAR HGB CONC 31 g/dL (32-36); MEAN CORPUSCULAR VOLUME 89 fL (80-99); MEAN PLATELET VOLUME 11.1 fL (9.0-12.2); MONOCYTES # (AUTO) 0.3 10^3/uL (0.0-1.0); MONOCYTES % (AUTO) 6 % (0-12); NEUTROPHILS # (AUTO) 3.7 10^3/uL (1.8-7.8); NEUTROPHILS % (AUTO) 67 % (42-75); PLATELET COUNT 302 10^3/uL (130-400); WHITE BLOOD COUNT 5.4 10^3/uL (4.3-11.0)
[2020-06-28 02:53] LABS: ALLENS TEST POS; INSPIRED O2 35%; PATIENT TEMP 37.7; VENTILATOR YES
[2020-06-28 02:56] LABS: CHLORIDE 99 MMOL/L (98-107); POTASSIUM 4.2 MMOL/L (3.6-5.0); SODIUM 138 MMOL/L (135-145)
[2020-06-28 02:57] LABS: CALCIUM 8.2 MG/DL (8.5-10.1)
[2020-06-28 02:58] LABS: GLUCOSE 96 MG/DL (70-105)
[2020-06-28 02:59] LABS: CARBON DIOXIDE 27 MMOL/L (21-32)
[2020-06-28 03:01] LABS: PHOSPHORUS 3.6 MG/DL (2.3-4.7)
[2020-06-28 03:02] LABS: GFR ESTIMATED > 60
[2020-06-28 03:03] LABS: BUN/CREATININE RATIO 22
[2020-06-28 03:04] LABS: MAGNESIUM 1.7 MG/DL (1.6-2.4)
--- NOTE | 2020-06-28 05:07 | Pulmonary Progress Note ---
Subjective Time Seen by a Provider: 05:01 Subjective/Events-last exam Sedated on vent. Sepsis Event Evaluation Height, Weight, BMI Height: '" Weight: lbs. oz. kg; 30.00 BMI Method: Focused Exam Time of Focused Exam: 20:35 Exam Exam Vital Signs Date Time Temp Pulse Resp B/P (MAP) Pulse Ox O2 Delivery O2 Flow Rate FiO2 06/28/20 04:00 99 22 109/68 (82) 95 Mechanical Ventilator 35.00 06/28/20 03:00 99 22 119/67 (84) 94 Mechanical Ventilator 35.00 06/28/20 02:28 37.7 Mechanical Ventilator 35.00 06/28/20 02:00 102 23 127/87 (100) 92 Mechanical Ventilator 45.00 06/28/20 01:34 89 26 97 60 06/28/20 01:00 100 06/28/20 01:00 99 21 126/75 (92) 96 Mechanical Ventilator 45.00 06/28/20 00:00 93 21 121/71 (88) 9 Mechanical Ventilator 45.00 06/27/20 23:41 94 115/73 06/27/20 23:00 101 22 121/71 (88) 95 Mechanical Ventilator 45.00 06/27/20 22:00 99 22 121/79 (93) 93 Mechanical Ventilator 45.00 06/27/20 22:00 Mechanical Ventilator 45.00 06/27/20 21:22 101 26 95 60 06/27/20 21:00 96 Mechanical Ventilator 45 06/27/20 21:00 97 22 121/98 (106) 96 Mechanical Ventilator 60.00 06/27/20 20:55 37.3 Mechanical Ventilator 60.00 06/27/20 20:00 99 21 123/79 (94) 93 Mechanical Ventilator 50.00 06/27/20 19:31 110 31 89 50 06/27/20 19:00 96 22 120/72 (88) 91 Mechanical Ventilator 50.00 06/27/20 19:00 101 06/27/20 19:00 Mechanical Ventilator 50.00 06/27/20 18:00 97 22 120/79 (93) 91 Mechanical Ventilator 40.00 06/27/20 17:00 93 23 129/80 (96) 93 Mechanical Ventilator 40.00 06/27/20 16:20 36.9 06/27/20 16:00 104 29 117/72 (87) 94 Mechanical Ventilator 40.00 06/27/20 15:00 94 22 95 Mechanical Ventilator 40.00 06/27/20 14:51 97 22 96 50 06/27/20 14:00 87 21 124/88 (100) 92 Mechanical Ventilator 40.00 06/27/20 13:00 91 21 100/56 (71) 92 Mechanical Ventilator 40.00 06/27/20 12:47 89 06/27/20 12:00 86 24 96/57 (70) 90 Mechanical Ventilator 40.00 06/27/20 11:00 86 22 102/58 (73) 87 Mechanical Ventilator 40.00 06/27/20 10:39 Mechanical Ventilator 40.00 06/27/20 10:30 93 22 93 60 06/27/20 10:00 102 11 98/57 (71) 95 Mechanical Ventilator 60.00 06/27/20 09:31 35.9 80 22 112/66 (81) 95 60.00 06/27/20 09:00 96 Mechanical Ventilator 60 06/27/20 09:00 75 26 114/69 (84) 91 Mechanical Ventilator 60.00 06/27/20 08:00 35.9 80 22 112/66 (81) 95 60.00 06/27/20 07:36 77 21 92 60 06/27/20 07:00 81 22 142/84 (103) 95 Mechanical Ventilator 60.00 06/27/20 06:41 80 06/27/20 06:00 77 22 135/78 (97) 95 Mechanical Ventilator 60.00 06/27/20 05:10 107/66 I & O 06/28/20 07:00 Intake Total 1100 ml Output Total 950 ml Balance 150 ml Height & Weight Height: '" Weight: lbs. oz. kg; 30.00 BMI Method: General Appearance: Other (intubated and sedated) HEENT: PERRL/EOMI, Other (Very dry oral mucosa noted) Neck: Full Range of Motion Respiratory: Crackles, Decreased Breath Sounds Cardiovascular: Regular Rate, Rhythm Capillary Refill: Less Than 3 Seconds Peripheral Pulses: 2+ Radial Pulses (R), 2+ Radial Pulses (L) Extremity: Normal Inspection Skin: Normal Color, Warm/Dry Results Lab Laboratory Tests 06/27/20 02:15 06/28/20 02:15 06/28/20 02:22 Assessment/Plan Assessment/Plan Acute respiratory failure secondary to COVID 19 -Intubated 06/09 - PEEP is 10 -- Increase to 12 -Copious amounts of sputum production and new onset fever -Check sputum culture -Continue ventilator care. -Continue TF -Continue proning patient -Currently on Versed, Fentanyl -Decrease Lasix to daily COVID 19- PNA -Remdesivir 06/08 -Monitor LFTs with daily CMPs - Zosyn changed to Merrem 06/15 -Now off Abx -06/26 Restart Vancomycin and Merem secondary to new onset fevers and copious amounts of sputum production -Repeat castillo cultures. -Mucomyst per ET tube with albuterol txs secondary to mucous plugging -Mucinex -CVP -Continue Decadron 6mg IV -Start theraputic dose lovenox secondary to elevated DDImer -CTA of chest - nondiagnostic for PE secondary to poor timing -Check PCT, and BNP Bacteremia -After PICC line -- D/C Central line R IJ and culture tip -Obtain PICC line. Elevated LFTs with elevated Bili -Monitor HOWARD YOU DO Jun 28, 2020 05:07
[2020-06-28] MEDS: MAGNESIUM 1 GM/100 ML IVPB 100 ML IV SCH (05:29)
[2020-06-28] MEDS: POTASSIUM CL 10MEQ/50ML IVPB 50 ML IV SCH (05:29)
[2020-06-28] MEDS: KCL 20 MEQ TAB (K-DUR) PO SCH (05:30)
[2020-06-28] MEDS: MEROPENEM 500 MG in WATER (STERILE) FOR INJECTION 10 ML IV SCH ×4 (06:40→20:45)
[2020-06-28] MEDS: FUROSEMIDE 40 MG/4 ML INJ (LASIX) IVP SCH (06:40)
[2020-06-28] MEDS: VANCOMYCIN 1250 MG/NS 250 ML IVPB IV SCH ×4 (06:40→16:18)
[2020-06-28] MEDS: POTASSIUM CHLORIDE INJ 20 MEQ in LACTATED RINGERS 1,000 ML IV SCH (06:41)
--- NOTE | 2020-06-28 07:38 | Diagnostic Imaging Report ---
Reason for examination: Shortness of breath. Semiupright AP portable chest was obtained and compared to yesterday. Bilateral airspace infiltrates without significant change or improvement. ET tube is in good position between the clavicles and mark. NG tube is in place with the tip in the left upper quadrant. Right IJ central line projects to the mid SVC. There is no pneumothorax or large pleural effusion. IMPRESSION: 1. Support lines and tubes are in good position where visible. 2. Bilateral airspace infiltrates without significant change. Dictated by: Dictated on workstation # [id number]
[2020-06-28] MEDS: PANTOPRAZOLE 40 MG (PROTONIX) VIAL IV SCH (08:33)
[2020-06-28] MEDS: guaiFENesin SYRUP 100 MG/5 ML 10 ML (ROBITUSSIN SF) PO SCH ×2 (08:33→20:44)
[2020-06-28] MEDS: meTOprolol TARTRATE 25 MG (LOPRESSOR) TABLET PO SCH ×2 (08:33→20:44)
[2020-06-28] MEDS: ARTIFICIAL TEARS OINT (LACRI-LUBE) 3.5 GM TUBE OU SCH ×3 (08:34→20:44)
[2020-06-28] MEDS: ENOXAPARIN 300 MG/3 ML (LOVENOX) MULTI-DOSE VIAL SQ SCH ×2 (08:34→20:45)
[2020-06-28] MEDS: MIDAZOLAM INJECTION FOR DRIPS 50 MG in NS (IVPB) 90 ML IV SCH ×2 (08:57→18:15)
--- NOTE | 2020-06-28 10:00 | NUR ---
This RN notified of nose wound and old surgical site opening. Areas assessed. nasal wound unstageable at this time. Large scabbed area of clotted blood and nasal discharge on tip. area softened with lanolin, unable to remove scab at this time, will continue to monitor. Old surgical scar site at inferior abdomen with barrier cream on it. area cleansed, pat dry. Site has scant bloody drainage and scabs at edges, pink, red, moist through center. 1.3cm X 4.9cm x 0.1cm. pillowcase placed until further assessment by wound DrChong
[2020-06-28] MEDS ORDERED: ZINC OXIDE 16% OINT (BUTT PASTE) 57 GM TUBE TOP PRN ×2 (10:15)
--- NOTE | 2020-06-28 11:23 | Physical Therapy Progress Note ---
Therapy Progress Note Performed PROM B U/LE's all available planes after assisting with repositioning to supine with turning team. ALEKSANDR SLAUGHTER PT Jun 28, 2020 11:23
--- NOTE | 2020-06-28 11:58 | Diagnostic Imaging Report ---
INDICATION: Right-sided PICC line COMPARISON: Imaging from same date TECHNIQUE: 2 frontal radiographs of the chest dated 06/28/2020. FINDINGS: Interval placement of a right-sided PICC line with the distal tip overlying the expected location of the cavoatrial junction. No pneumothorax. Right IJ central venous catheter is again noted with the distal tip overlying the inferior aspect of the superior vena cava. Endotracheal tube and enteric catheter are unchanged. Extensive bilateral pulmonary opacities are again seen, minimally improved since the prior examination slightly improved aeration of the lungs. No significant pleural effusion. No pneumothorax. Osseous structures are stable. IMPRESSION: Interval placement of a right-sided PICC line with the distal tip overlying the expected location of the cavoatrial junction without pneumothorax. Additional lines and tubes are unchanged. Slightly improved aeration of the lungs with persistent extensive bilateral pulmonary opacities. Dictated by: Dictated on workstation # [id number]
--- NOTE | 2020-06-28 15:35 | NUR ---
Note pt is currently receiving TF of Pulmocare at rate of 30ml/hr with 25ml water flushes q4h. Would recommend increases of 10ml q12 toward goal rate of 40ml/hr. Will continue to follow and reassess as pt needs, intake, and status change. Nivia Murphy, MS RD LD [phone] (cell)
--- NOTE | 2020-06-28 15:43 | Cardiology Progress Note ---
Subjective Date Seen by Provider: Jun 28, 2020 Time Seen by Provider: 09:00 Subjective/Events-last exam Patient was seen at bedside, sedated and intubated Review of Systems General: Other (unable to provide review of systems) Focused Exam Time of Focused Exam: 20:35 Objective-Cardiology Exam Last Set of Vital Signs Vital Signs 06/28/20 06/28/20 14:02 15:00 Temp 36.6 Pulse 108 Resp 24 B/P (MAP) 116/75 (89) Pulse Ox 96 O2 Delivery Mechanical Ventilator O2 Flow Rate 35.00 FiO2 40 Capillary Refill : Less Than 3 Seconds I&O Intake and Output 06/28/20 00:00 Intake Total 1290 ml Output Total 1000 ml Balance 290 ml IV Total 700 ml Tube Feeding 590 ml Output Urine Total 1000 ml General: Other (sedated and intubated) HEENT: Atraumatic Neck: Supple Lungs: Other (sedated and intubated) Heart: Other (tachycardia) Neuro: Other (sedated and intubated) Psych/Mental Status: Other (sedated and intubated) Results Lab Laboratory Tests 06/28/20 02:15 06/28/20 02:22 A/P-Cardiology Admission Diagnosis Supraventricular tachycardia Paroxysmal atrial tachycardia Acute respiratory failure COVID-19 pneumonia Assessment/Plan Supraventricular tachycardia, paroxysmal atrial tachycardia, ventilator dependent, slightly tachycardic today. Continue to monitor heart rate. Acute respiratory failure secondary to COVID-19 pneumonia, ventilator dependent, on prone position, maintained on PEEP, managed by critical care team Bacteremia, positive blood cultures, managed by Dr. Hale Ventilator-dependent respiratory failure managed by critical care team Hypotension, blood pressure is better at this time. Continue to monitor Clinical Quality Measures DVT/VTE Risk/Contraindication: Risk Factor Score Per Nursin RFS Level Per Nursing on Admit: 4+=Very High GONZALO AMBROSE MD Jun 28, 2020 15:43
[2020-06-28] MEDS: RT-ALBUTEROL INHALER HFA (VENTOLIN HFA) 18 GM IH PRN ×3 (18:32→21:58)
[2020-06-29] VITALS (19 sets, daily range): BP systolic 88–143; BP diastolic 58–91
[2020-06-29] MEDS: RT-ALBUTEROL INHALER HFA (VENTOLIN HFA) 18 GM IH PRN (02:21)
[2020-06-29] MEDS: fentaNYL 1,250 MCG/NS 250 ML DRIP IV SCH ×3 (02:32→13:22)
[2020-06-29] MEDS: MIDAZOLAM INJECTION FOR DRIPS 50 MG in NS (IVPB) 90 ML IV SCH ×2 (02:33→08:36)
[2020-06-29] MEDS: inSUlin ASPART (NovoLOG) 1 UNIT/0.01 ML (CHARGE PER UNIT) SC SCH ×3 (02:49→13:18)
[2020-06-29 02:56] LABS: ABG BASE EXCESS 6.1 MMOL/L (-2.5-2.5); ABG OXYGEN SATURATION 95 % (94-100); ABG PCO2 47 MMHG (35-45); ABG PH 7.43 (7.37-7.43); ABG PO2 78 MMHG (79-93); ABG TCO2 31.7 MMOL/L (21.0-31.0)
[2020-06-29 02:57] LABS: ALLENS TEST YES-POS; BASOPHILS % (AUTO) 0 % (0-10); EOSINOPHILS # (AUTO) 0.3 10^3/uL (0.0-0.3); EOSINOPHILS % (AUTO) 6 % (0-10); HEMATOCRIT 30 % (35-52); HEMOGLOBIN 9.1 g/dL (11.5-16.0); INSPIRED O2 30%; LYMPHOCYTES % (AUTO) 21 % (12-44); MEAN CORPUSCULAR HEMOGLOBIN 27 pg (25-34); MEAN CORPUSCULAR HGB CONC 30 g/dL (32-36); MEAN CORPUSCULAR VOLUME 88 fL (80-99); MEAN PLATELET VOLUME 10.6 fL (9.0-12.2); MONOCYTES # (AUTO) 0.3 10^3/uL (0.0-1.0); MONOCYTES % (AUTO) 6 % (0-12); NEUTROPHILS # (AUTO) 2.9 10^3/uL (1.8-7.8); NEUTROPHILS % (AUTO) 60 % (42-75); PLATELET COUNT 284 10^3/uL (130-400); VENTILATOR YES; WHITE BLOOD COUNT 4.8 10^3/uL (4.3-11.0)
[2020-06-29 02:58] LABS: PATIENT TEMP 37.7
[2020-06-29 03:12] LABS: BUN/CREATININE RATIO 16; CALCIUM 8.3 MG/DL (8.5-10.1); CARBON DIOXIDE 27 MMOL/L (21-32); CHLORIDE 101 MMOL/L (98-107); GFR ESTIMATED > 60; GLUCOSE 110 MG/DL (70-105); MAGNESIUM 1.7 MG/DL (1.6-2.4); POTASSIUM 3.9 MMOL/L (3.6-5.0); SODIUM 139 MMOL/L (135-145)
--- NOTE | 2020-06-29 03:49 | Pulmonary Progress Note ---
Subjective Time Seen by a Provider: 03:44 Subjective/Events-last exam Pt is sedated on ventilator. Sepsis Event Evaluation Height, Weight, BMI Height: '" Weight: lbs. oz. kg; 30.00 BMI Method: Focused Exam Time of Focused Exam: 20:35 Exam Exam Vital Signs Date Time Temp Pulse Resp B/P (MAP) Pulse Ox O2 Delivery O2 Flow Rate FiO2 06/29/20 02:33 76 150/84 06/29/20 02:21 73 22 92 30 06/29/20 01:00 83 06/29/20 00:34 37.2 06/29/20 00:00 84 22 121/77 (92) 92 Mechanical Ventilator 30.00 06/28/20 23:00 78 22 117/75 (89) 93 Mechanical Ventilator 30.00 06/28/20 22:00 78 21 110/78 (89) 92 Mechanical Ventilator 30.00 06/28/20 21:58 72 22 90 30 06/28/20 21:00 91 Mechanical Ventilator 30 06/28/20 21:00 92 21 112/70 (84) 92 Mechanical Ventilator 30.00 06/28/20 20:49 37.4 Mechanical Ventilator 30.00 06/28/20 20:00 89 21 124/72 (89) 93 Mechanical Ventilator 35.00 06/28/20 19:00 90 06/28/20 19:00 87 22 117/74 (88) 93 Mechanical Ventilator 35.00 06/28/20 18:33 92 22 93 30 06/28/20 18:15 92 22 122/74 06/28/20 18:00 87 21 120/69 (86) 93 Mechanical Ventilator 35.00 06/28/20 17:02 37.2 87 90 30 06/28/20 17:00 87 21 129/75 (93) 92 Mechanical Ventilator 35.00 06/28/20 16:21 37.2 06/28/20 16:00 84 22 136/73 (94) 90 Mechanical Ventilator 35.00 06/28/20 15:00 108 24 96 40 06/28/20 15:00 110 22 116/75 (89) 96 Mechanical Ventilator 35.00 06/28/20 14:02 36.6 06/28/20 14:00 99 22 94/54 (67) 92 Mechanical Ventilator 35.00 06/28/20 13:00 104 22 93/53 (66) 94 Mechanical Ventilator 35.00 06/28/20 12:24 101 06/28/20 12:00 102 21 96/49 (65) 95 Mechanical Ventilator 35.00 06/28/20 11:52 108 22 93 40 06/28/20 11:00 97 92/50 (64) 90 Mechanical Ventilator 35.00 06/28/20 10:00 97 28 95/57 (70) 92 Mechanical Ventilator 35.00 06/28/20 09:00 92 107/57 (74) 90 Mechanical Ventilator 35.00 06/28/20 08:57 89 22 106/75 06/28/20 08:52 91 Mechanical Ventilator 30 06/28/20 08:31 37.0 06/28/20 08:00 110 17 120/75 (90) 92 Mechanical Ventilator 35.00 06/28/20 07:34 104 22 93 35 06/28/20 07:00 99 06/28/20 07:00 89 22 123/71 (88) 95 Mechanical Ventilator 35.00 06/28/20 06:00 90 22 107/64 (78) 94 Mechanical Ventilator 35.00 06/28/20 05:00 94 22 114/68 (83) 94 Mechanical Ventilator 35.00 06/28/20 04:00 99 22 109/68 (82) 95 Mechanical Ventilator 35.00 I & O 06/29/20 07:00 Intake Total 920 ml Output Total 2955 ml Balance -2035 ml Height & Weight Height: '" Weight: lbs. oz. kg; 30.00 BMI Method: General Appearance: Other (intubated and sedated) HEENT: PERRL/EOMI, Other (Very dry oral mucosa noted) Neck: Full Range of Motion Respiratory: Crackles, Decreased Breath Sounds Cardiovascular: Regular Rate, Rhythm Capillary Refill: Less Than 3 Seconds Peripheral Pulses: 2+ Radial Pulses (R), 2+ Radial Pulses (L) Extremity: Normal Inspection Skin: Normal Color, Warm/Dry Results Lab Laboratory Tests 06/28/20 02:15 06/28/20 02:22 06/29/20 02:35 Assessment/Plan Assessment/Plan Acute respiratory failure secondary to COVID 19 -Intubated 06/09 - PEEP is 10 --Will Decrease to 8. -Copious amounts of sputum production and new onset fever -Check sputum culture -Continue ventilator care. -Continue TF -Continue proning patient -Currently on Versed, Fentanyl -Decrease Lasix to daily COVID 19- PNA -Remdesivir 06/08 -Monitor LFTs with daily CMPs -Continue Merrem and Vanco for now. - Zosyn changed to Merrem 06/15 -Now off Abx -06/26 Restart Vancomycin and Merem secondary to new onset fevers and copious amounts of sputum production -Repeat castillo cultures. -Mucomyst per ET tube with albuterol txs secondary to mucous plugging -Mucinex -CVP -Continue Decadron 6mg IV -Start theraputic dose lovenox secondary to elevated DDImer -CTA of chest - nondiagnostic for PE secondary to poor timing -Check PCT, and BNP Bacteremia - D/C Central line R IJ and culture tip -- pending -Obtain PICC line. Elevated LFTs with elevated Bili -Monitor HOWARD YOU DO Jun 29, 2020 03:49
[2020-06-29] MEDS: MEROPENEM 500 MG in WATER (STERILE) FOR INJECTION 10 ML IV SCH ×2 (05:56→10:51)
[2020-06-29] MEDS: VANCOMYCIN 1250 MG/NS 250 ML IVPB IV SCH ×2 (05:57)
[2020-06-29] MEDS: FUROSEMIDE 40 MG/4 ML INJ (LASIX) IVP SCH (05:57)
[2020-06-29] MEDS: POTASSIUM CHLORIDE INJ 20 MEQ in LACTATED RINGERS 1,000 ML IV SCH (05:57)
[2020-06-29] MEDS: POTASSIUM CL 10MEQ/50ML IVPB 50 ML IV SCH (05:57)
[2020-06-29] MEDS: KCL 20 MEQ TAB (K-DUR) PO SCH (05:58)
[2020-06-29] MEDS: MAGNESIUM 1 GM/100 ML IVPB 100 ML IV SCH (05:58)
[2020-06-29] MEDS: RT-ALBUTEROL INHALER HFA (VENTOLIN HFA) 18 GM IH SCH ×3 (07:06→13:29)
[2020-06-29] MEDS: ARTIFICIAL TEARS OINT (LACRI-LUBE) 3.5 GM TUBE OU SCH ×2 (08:17→13:18)
[2020-06-29] MEDS: guaiFENesin SYRUP 100 MG/5 ML 10 ML (ROBITUSSIN SF) PO SCH (08:17)
[2020-06-29] MEDS: PANTOPRAZOLE 40 MG (PROTONIX) VIAL IV SCH (08:17)
[2020-06-29] MEDS: meTOprolol TARTRATE 25 MG (LOPRESSOR) TABLET PO SCH (08:18)
[2020-06-29] MEDS: ENOXAPARIN 300 MG/3 ML (LOVENOX) MULTI-DOSE VIAL SQ SCH (08:18)
--- NOTE | 2020-06-29 08:25 | Diagnostic Imaging Report ---
INDICATION: History of COVID. Shortness of breath. EXAMINATION: Chest 06/29/2020 COMPARISON: 06/28/2020 FINDINGS: ET tube stable, feeding tube tip just likely enters the stomach with the proximal sidehole likely in the distal esophagus. This is stable from previous. Right PICC line tip is in the SVC. Airspace opacities stable. Heart and pulmonary vasculature unchanged. IMPRESSION: 1. Feeding tube tip as noted above. 2. Stable appearance of the lungs. Dictated by: Dictated on workstation # [id number]
--- NOTE | 2020-06-29 10:00 | Wound Care Assessment ---
Wound Care Assessment Date Seen by Provider: Jun 29, 2020 Time Seen by Provider: 09:55 Chief Complaint Abdominal wall ulcers. HPI The patient is a 60 year old female with respiratory failure, obesity, COVID-19, and the development of abdominal wall ulcers related to moisture and prone positioning for pulmonary drainage. Currently improving on barrier cream treatments. Would recommend continuing same. Not able to view wounds due to isolation. Recreational Drug Use: No Alcohol Use: Denies Use Exam Vital Signs Date Time Temp Pulse Resp B/P (MAP) Pulse Ox O2 Delivery O2 Flow Rate FiO2 06/29/20 08:36 82 22 124/77 06/29/20 08:34 91 Mechanical Ventilator 30 06/29/20 06:00 30.00 06/29/20 04:00 37.7 Capillary Refill : Less Than 3 Seconds Results Laboratory Tests 06/28/20 11:41: Glucometer 105 06/28/20 18:05: Glucometer 110 06/29/20 00:23: Glucometer 95 06/29/20 02:35: White Blood Count 4.8, Red Blood Count 3.43L, Hemoglobin 9.1L, Hematocrit 30L, Mean Corpuscular Volume 88, Mean Corpuscular Hemoglobin 27, Mean Corpuscular Hemoglobin Concent 30L, Red Cell Distribution Width 14.3, Platelet Count 284, Mean Platelet Volume 10.6, Immature Granulocyte % (Auto) 7, Neutrophils (%) (Auto) 60, Lymphocytes (%) (Auto) 21, Monocytes (%) (Auto) 6, Eosinophils (%) (Auto) 6, Basophils (%) (Auto) 0, Neutrophils # (Auto) 2.9, Lymphocytes # (Auto) 1.0, Monocytes # (Auto) 0.3, Eosinophils # (Auto) 0.3, Basophils # (Auto) 0.0, Immature Granulocyte # (Auto) 0.4H, Blood Gas Puncture Site LEFT RADIAL, Blood Gas Patient Temperature 37.7, Arterial Blood pH 7.43, Arterial Blood Partial Pressure CO2 47H, Arterial Blood Partial Pressure O2 78L, Arterial Blood HCO3 30H, Arterial Blood Total CO2 31.7H, Arterial Blood Oxygen Saturation 95, Arterial Blood Base Excess 6.1H, Yinka Test YES-POS, Blood Gas Ventilator Setting YES, Blood Gas Inspired Oxygen 30%, Sodium Level 139, Potassium Level 3.9, Chloride Level 101, Carbon Dioxide Level 27, Anion Gap 11, Blood Urea Nitrogen 8, Creatinine 0.50L, Estimat Glomerular Filtration Rate > 60, BUN/Creatinine Ratio 16, Glucose Level 110H, Calcium Level 8.3L, Phosphorus Level 3.0, Magnesium Level 1.7 Microbiology 06/27/20 Blood Culture - Preliminary, Resulted No growth 06/26/20 Urine Culture - Final, Complete YEAST 06/15/20 Gram Stain - Final, Complete 06/15/20 Sputum Culture - Final, Complete Enterobacter cloacae complex Staphylococcus aureus Microbiology 06/27/20 Blood Culture - Preliminary, Resulted No growth Assessment/Plan/Dx 1. Moisture related abdominal wall ulcers. 2. COVID-19 with respiratory failure. Plan: Barrier cream to abdominal ulcers. Will see PRN. JAMES MASON MD Jun 29, 2020 10:00
--- NOTE | 2020-06-29 10:31 | Cardiology Progress Note ---
Subjective Date Seen by Provider: Jun 29, 2020 Time Seen by Provider: 10:28 Subjective/Events-last exam Patient is laying down in bed, ventilatory dependent sedated Review of Systems General: Other (sedated and intubated) Focused Exam Time of Focused Exam: 20:35 Objective-Cardiology Exam Last Set of Vital Signs Vital Signs 06/29/20 06/29/20 06/29/20 06/29/20 04:00 06:00 08:34 08:36 Temp 37.7 Pulse 82 Resp 22 B/P (MAP) 124/77 Pulse Ox 91 O2 Delivery Mechanical Ventilator O2 Flow Rate 30.00 FiO2 30 Capillary Refill : Less Than 3 Seconds I&O Intake and Output 06/29/20 00:00 Intake Total 930 ml Output Total 3085 ml Balance -2155 ml IV Total 700 ml Tube Feeding 180 ml Other 50 ml Output Urine Total 3085 ml General: Other (sedated and intubated) HEENT: Atraumatic Lungs: Other (sedated and intubated) Heart: Other (tachycardia) Neuro: Other (sedated and intubated) Psych/Mental Status: Other (sedated and intubated) Results Lab Laboratory Tests 06/29/20 02:35 A/P-Cardiology Admission Diagnosis Supraventricular tachycardia Paroxysmal atrial tachycardia Acute respiratory failure COVID-19 pneumonia Assessment/Plan Supraventricular tachycardia, paroxysmal atrial tachycardia, ventilator dependent, trached is better today. Continue to monitor, no changes are recommended Acute respiratory failure secondary to COVID-19 pneumonia, ventilator dependent, on prone position, maintained on PEEP, down to 8 today. Managed by critical care team Bacteremia, positive blood cultures, managed by Dr. Hale Ventilator-dependent respiratory failure managed by critical care team Hypotension, blood pressure is better at this time. Continue to monitor Clinical Quality Measures DVT/VTE Risk/Contraindication: Risk Factor Score Per Nursin RFS Level Per Nursing on Admit: 4+=Very High GONZALO AMBROSE MD Jun 29, 2020 10:31
--- NOTE | 2020-06-29 11:21 | NUR ---
NOTIFIED BY MT THAT PT HR 190S AND SUSTAINED FOR TWO MINUTES. WHEN ARRIVING AT PT ROOM, PT IN SR-ST HR 90-100S. RT IN ROOM AT BEDSIDE DOING ET SUCTION.
--- NOTE | 2020-06-29 13:19 | NUR ---
CM/SS finalized discharge plan: Plan: The patient will discharge today 06/29 to [facility] in [place], [place]. Patient will be transported by EMS. [facility]: Tommie reached out this sw for a referral from Dr. Hale. CM/SS sent secure email with referral. Tommie reports that the patient was accepted and insurance approved. The patient will discharge today. CM/SS reached out to the physician regarding family communication. Dr. Hale or the Nurse has discussed [facility] with the son Yusuf and got consent to transfer to [facility]. CM/SS attempted to contact the patient's daughter Fara. No answer, voicemail left with contact information. No further needs.
[2020-06-29] MEDS ORDERED: [UNRECOGNIZED DRUG - OTHER] IV SCH (13:30)
[2020-06-29] MEDS ORDERED: MIDAZOLAM IV SCH (13:30)
[2020-06-29] MEDS ORDERED: SODIUM CHLORIDE IV SCH (13:30)
[2020-06-29] MEDS ORDERED: MIDAZOLAM INJECTION FOR DRIPS 50 MG in NS (IVPB) 90 ML IV SCH (13:30)
--- NOTE | 2020-06-29 16:01 | NUR ---
REPORT CALLED TO MARY WHITE AT [facility]. EMS HERE TO TAKE PT TO [facility] AT THIS TIME. REPORT GIVEN TO EMS.
[2020-06-29] MEDS ORDERED: ENOX300V SQ (17:57)
[2020-06-29] MEDS ORDERED: ACET200V4 INH (17:57)
[2020-06-29] MEDS ORDERED: FNT.05A2 IVP (17:57)
[2020-06-29] MEDS ORDERED: Artificial Tears OU (17:57)
[2020-06-29] MEDS ORDERED: ALBU18HF2 IH (17:57)
[2020-06-29] MEDS ORDERED: ACET325T49 PO (17:57)
[2020-06-29] MEDS ORDERED: LORA2VIA3 IV (17:58)
[2020-06-29] MEDS ORDERED: GUAI100L13 PO (17:58)
[2020-06-29] MEDS ORDERED: INSU100V16 SC (17:58)
[2020-06-29] MEDS ORDERED: METO-333 PO (18:00)
[2020-06-29] MEDS ORDERED: PANT40VI IV (18:03)
[2020-06-29] MEDS ORDERED: Morphine Sulfate IVP (18:03)
[2020-06-29] MEDS ORDERED: ZINC28PA TOP (18:03)
== END 2020-06-29 16:00 | DRG 207 ==
LOC: EDUNIT# 20:07 → ICU 20:08 → ER 20:08 → ICU 22:36
PROVIDERS: ADMIT Internal Medicine; ATTEND Internal Medicine Critical Care Medicine
PROC: XW033E5 Introduction of Remdesivir Anti-infective into Peripheral Vein, Percutaneous Approach, New Technology Group 5 (ICD-10-PCS; 2020-06-08)
PROC: XW13325 Transfusion of Convalescent Plasma (Nonautologous) into Peripheral Vein, Percutaneous Approach, New Technology Group 5 (ICD-10-PCS; 2020-06-08)
PROC: 5A1955Z Respiratory Ventilation, Greater than 96 Consecutive Hours (ICD-10-PCS; principal; 2020-06-09)
PROC: 0BH17EZ Insertion of Endotracheal Airway into Trachea, Via Natural or Artificial Opening (ICD-10-PCS; 2020-06-09)
DX: U07.1 COVID-19 (principal); J12.89 Other viral pneumonia; J96.00 Acute respiratory failure, unspecified whether with hypoxia or hypercapnia; I47.1 Supraventricular tachycardia; Z68.42 Body mass index [BMI] 45.0-49.9, adult; R78.81 Bacteremia; I95.9 Hypotension, unspecified; R79.89 Other specified abnormal findings of blood chemistry; T17.990A Other foreign object in respiratory tract, part unspecified in causing asphyxiation, initial encounter; E66.9 Obesity, unspecified; L98.499 Non-pressure chronic ulcer of skin of other sites with unspecified severity
CPT/HCPCS: 36415; 36569; 36600; 51702; 71045; 71275; 76705; 76937; 80048; 80053; 80076; 80202; 81000; 82728; 82805; 82962; 83605; 83735; 83880; 84100; 84145; 84478; 84484; 85007; 85025; 85027; 85379; 85610; 85730; 86141; 86900; 86901; 87040; 87070; 87077; 87088; 87186; 87205; 87449; 87804; 87899; 93005; 94002; 94003; 94640; 94660; 94799; 96361; 96374